=== PATIENT | male | born 1950 | race Caucasian/White ===

== ENCOUNTER 2019-02-07 08:25 | Emergency (ER) | payer OTHER ==
[2019-02-07] MEDS ORDERED: LIDOCAINE 1% MPF 5 ML VIAL ONE (09:11)
[2019-02-07] MEDS ORDERED: NA CHLORIDE 0.9% 1,000 ML ONE (09:35)
--- NOTE | 2019-02-07 09:54 | RAD REPORT ---
EXAM DESCRIPTION: CT - CTHCSPWOC - 02/07/2019 9:17 am CLINICAL HISTORY: Fall, head and neck injury COMPARISON: None. TECHNIQUE: Axial 5 mm thick images of the head were obtained. Axial 2 mm thick images of the cervic al spine were obtained with sagittal and coronal reconstruction images generated and reviewed. All CT scans are performed using dose optimization technique as appropriate and may include automated exposure control or mA/KV adjustment according to patient size. FINDINGS: No intracranial hemorrhage, mass, edema or acute intracranial finding. Moderate severity a trophy and chronic ischemic change. Ventricular size is in proportion to the amount of volume loss. C hronic ischemic changes are present. No extra-axial fluid collections. Mastoid air cells and paranasa l sinuses are clear. No globe or orbit abnormality seen. Right frontal scalp laceration is present. N o foreign body. Cervical bodies are normal in height. There is very slight retrolisthesis of C4 on C5 and C5 on C6. M oderate C4-5 and advanced C5-6 and C6-7 disc space narrowing. Posterior endplate spurring changes are present. No fracture or acute bony abnormality. Central canal detail is inherently limited. Bilatera l bony foraminal encroachment is present at C4-5, C5-6 and to a lesser degree C6-7. Facet joint degen erative change present. No paraspinal mass or hematoma. IMPRESSION: Right frontal scalp laceration with no hemorrhage, edema or acute intracranial finding. Patient has moderate severity atrophy and chronic ischemic change. Cervical spine degenerative changes are present without acute finding.
[2019-02-07] MEDS ORDERED: LIDOCAINE 1% W/EPI 1:100,000 MDV 20 ML VIAL ONE (10:15)
--- NOTE | 2019-02-07 10:18 | RAD REPORT ---
EXAM DESCRIPTION: RAD - Chest Single View - 02/07/2019 9:36 am CLINICAL HISTORY: Dizziness, shortness of breath COMPARISON: None. TECHNIQUE: AP portable chest image was obtained 0930 hours . FINDINGS: No peripheral mass or consolidation. Interstitial markings are prominent believed be basel ine. No significant failure or volume overload. Heart and vasculature are normal. No measurable pleur al effusion and no pneumothorax. No acute bony abnormality seen. No acute aortic findings suspected. IMPRESSION: No acute cardiopulmonary process.
[2019-02-07 10:43] LABS: Absolute Lymphocytes (CBC) 2.3 K/uL (0.7-4.9); Basophils % 0.9 % (0-1.3); Hematocrit 33.2 % (39.6-49.0); Lymphocytes % 29.6 % (15.3-44.8); RBC Red Blood Cell Count 3.78 M/uL (4.33-5.43)
[2019-02-07 11:16] LABS: Protime INR 0.96
[2019-02-07 11:40] LABS: ALT/SGPT 28 U/L (12-78); AST/SGOT 27 U/L (15-37); Albumin 3.4 g/dL (3.4-5.0); Alkaline Phosphatase 110 U/L (45-117); BUN Blood Urea Nitrogen 14 mg/dL (7-18); Bicarbonate 28 mmol/L (21-32); Bilirubin Direct 0.1 mg/dL (0-0.2); Bilirubin Total 0.4 mg/dL (0.2-1.0); Glucose Level 124 mg/dL (74-106); Magnesium 2.3 mg/dL (1.8-2.4); NT PRO-BNP 342 pg/mL (<125); Potassium 5.2 mmol/L (3.5-5.1); Protein, Total 7.2 g/dL (6.4-8.2); Sodium Level 131 mmol/L (136-145); Troponin (Emerg Dept Use Only) < 0.02 ng/mL (0.0-0.045)
--- NOTE | 2019-02-07 12:20 | ER ---
Nurse's Notes [facility] Name: Ken Sutherland Jr Age: 68 yrs Sex: Male : 1950 Arrival Date: 02/07/2019 Time: 08:28 Bed 26 Private MD: Diagnosis: Laceration without foreign body of scalp;Other slipping, tripping and stumbling and falls;Dizziness and giddiness Presentation: 02/07 08:44 Presenting complaint: Became dizzy when stood from bed, fell and hit head on night ss stand. Laceration to right side of forehead noted. Transition of care: patient was not received from another setting of care. Complicating Factors: There are no complicating factors for this patient. Onset of symptoms was February 07, 2019. Risk Assessment: Do you want to hurt yourself or someone else? Patient reports no desire to harm self or others. Care prior to arrival: None. 08:44 Method Of Arrival: Ambulatory ss 08:44 Acuity: JENAE 3 ss 10:07 Initial Sepsis Screen: Does the patient meet any 2 criteria? No. Patient's initial em sepsis screen is negative. Does the patient have a suspected source of infection? No. Patient's initial sepsis screen is negative. Historical: - Allergies: 08:45 Sulfa (Sulfonamide Antibiotics); ss - Immunization history:: Adult Immunizations up to date. - Social history:: Smoking status: Patient/guardian denies using tobacco. - Ebola Screening: : No symptoms or risks identified at this time. Screenin:45 Abuse screen: Denies threats or abuse. Denies injuries from another. Nutritional ss screening: No deficits noted. Tuberculosis screening: No symptoms or risk factors identified. 09:00 Fall Risk Fall in past 12 months (25 points). Gait- Impaired (20 pts.). Mental Status- em Overestimates/Forgets Limitations (15 pts.). Total Jain Fall Scale indicates High Risk Score (45 or more points). Side Rails Up X 2 Placed Close to Nursing Station Frequent Obs/Assessments Occuring Family Present and informed to notify staff if the need to leave the bedside. Assessment: 09:00 General: Appears in no apparent distress. comfortable, Behavior is calm, cooperative, em Reports reports drinking alcohol last night. Pain: Complains of pain in top of head Pain currently is 5 out of 10 on a pain scale. Neuro: Level of Consciousness is awake, alert, obeys commands, Oriented to person, place, time, situation, Appropriate for age Reports dizziness. Cardiovascular: Capillary refill < 3 seconds Patient's skin is warm and dry. Respiratory: Airway is patent Respiratory effort is even, unlabored, Respiratory pattern is regular, symmetrical. Derm: Skin is intact, is healthy with good turgor, Skin is pink, warm \T\ dry. Musculoskeletal: Capillary refill < 3 seconds, Range of motion: intact in all extremities. Injury Description: Laceration sustained to top of head is clean, was sustained 30-60 minutes ago. is bleeding a small amount. 11:13 Reassessment: Patient appears in no apparent distress at this time. Patient and/or em family updated on plan of care and expected duration. Pain level reassessed. Patient is alert, oriented x 3, equal unlabored respirations, skin warm/dry/pink. Patient states symptoms have improved. 12:39 Reassessment: Patient appears in no apparent distress at this time. Patient and/or em family updated on plan of care and expected duration. Pain level reassessed. Patient is alert, oriented x 3, equal unlabored respirations, skin warm/dry/pink. Patient states feeling better. Patient states symptoms have improved. Vital Signs: 08:45 BP 157 / 103; Pulse 101; Resp 16; Temp 97.5; Pulse Ox 100% on R/A; Weight 89.81 kg; ss Height 5 ft. 8 in. (172.72 cm); Pain 5/10; 09:03 BP 106 / 62 Supine; Pulse 94; em 09:03 BP 100 / 73 Sitting; Pulse 98; em 09:03 BP 89 / 66 Standing; Pulse 102; em 10:07 BP 154 / 66; Pulse 97; Resp 18; Pulse Ox 97% on R/A; em 11:14 BP 144 / 69; Pulse 91; Resp 18; Pulse Ox 95% on R/A; em 12:39 BP 138 / 71; Pulse 84; Resp 18; Pulse Ox 99% on R/A; em 08:45 Body Mass Index 30.11 (89.81 kg, 172.72 cm) ED Course: 08:28 Patient arrived in ED. as 08:40 Lobo Celaya LVN is Primary Nurse. em 08:45 Triage completed. 08:45 Douglas Sanabria PA is PHCP. cp 08:45 Braulio Berry MD is Attending Physician. cp 08:45 Arm band placed on. ss 09:00 Patient has correct armband on for positive identification. Bed in low position. Call em light in reach. Side rails up X2. Adult w/ patient. Pulse ox on. NIBP on. 09:17 CT Head C Spine In Process Unspecified. EDMS 09:17 CT completed. Patient tolerated procedure well. Patient moved back from CT. bq 09:36 XRAY Chest (1 view) In Process Unspecified. EDMS 10:00 EKG done, by ED staff, reviewed by Braulio Berry MD. ms 10:05 Missed attempt(s): 24 gauge in left wrist. Bleeding controlled, band aid applied, em catheter tip intact. 12:35 IV discontinued, intact, bleeding controlled, No redness/swelling at site. Pressure jp3 dressing applied. 12:38 No provider procedures requiring assistance completed. em Administered Medications: 10:19 Drug: NS 0.9% 1000 ml Route: IV; Rate: 1000 ml/hr; Site: right antecubital; em 10:43 Drug: Lidocaine-Epinephrine -1%: (1:100,000) 10 ml {Note: administered by LAUREN Cole.} em Volume: 20 ml; Route: Infiltration; Outcome: 12:19 Discharge ordered by MD. cp 12:38 Discharged to home ambulatory, with family. em 12:38 Condition: good 12:38 Discharge instructions given to patient, family, Instructed on discharge instructions, follow up and referral plans. Demonstrated understanding of instructions, follow-up care. 12:39 Patient left the ED. em Signatures: Dispatcher [employer] EDMS Jenni Eckert, Lobo, REGISTERED SALES ASSISTANT REGISTERED SALES ASSISTANT em Precious Meraz Maria ms Smirch, Shelby, RN RN Douglas Hercules PA PA cp Pisarski, Jacob jp3
--- NOTE | 2019-02-07 12:21 | EDPHYS ---
Physician Documentation [facility] Name: Ken Sutherland Jr Age: 68 yrs Sex: Male : 1950 Arrival Date: 02/07/2019 Time: 08:28 Bed 26 Private MD: ED Physician Braulio Berry HPI: 02/07 08:55 This 68 yrs old Male presents to ER via Ambulatory with complaints of cp Laceration To Head. 08:55 The patient has a laceration occurred at home. The laceration(s) is(are) located on the cp top of head. 08:55 Details of fall: The patient fell from an upright position, while standing, and struck wooden nightstand. Onset: The symptoms/episode began/occurred this morning. Associated injuries: The patient sustained injury to the head, laceration, of the top of head. Associated signs and symptoms: Pertinent positives: dizziness, Pertinent negatives: heavy bleeding, loss of consciousness. Historical: - Allergies: 08:45 Sulfa (Sulfonamide Antibiotics); ss - Immunization history:: Adult Immunizations up to date. - Social history:: Smoking status: Patient/guardian denies using tobacco. - Ebola Screening: : No symptoms or risks identified at this time. ROS: 09:00 Constitutional: Negative for body aches, chills, fever, poor PO intake. cp 09:00 Eyes: Negative for injury, pain, redness, and discharge. cp 09:00 ENT: Negative for drainage from ear(s), ear pain, sore throat, difficulty swallowing, difficulty handling secretions. 09:00 Cardiovascular: Negative for chest pain, edema, palpitations. 09:00 Respiratory: Negative for cough, shortness of breath, wheezing. 09:00 Abdomen/GI: Negative for abdominal pain, nausea, vomiting, and diarrhea, constipation, black/tarry stool, rectal bleeding. 09:00 Back: Negative for pain at rest, pain with movement. 09:00 MS/extremity: Negative for injury or acute deformity, decreased range of motion, paresthesias. 09:00 Skin: Positive for laceration(s), of the top of head. 09:00 Neuro: Positive for dizziness, Negative for altered mental status, loss of consciousness, seizure activity, syncope, weakness. 09:00 All other systems are negative. Exam: 09:05 Constitutional: The patient appears in no acute distress, alert, awake, cp non-diaphoretic, non-toxic, well developed, well nourished. 09:05 Head/face: Noted is a laceration(s), that is deep, that is linear, of the top of head, cp Sinus tenderness, is not appreciated. 09:05 Eyes: Periorbital structures: appear normal, Pupils: equal, round, and reactive to light and accomodation, Extraocular movements: intact throughout, Conjunctiva: normal, no exudate, no injection, Lids and lashes: appear normal, bilaterally. 09:05 ENT: External ear(s): are unremarkable, Ear canal(s): are normal, clear, TM's: dullness, bilaterally, Nose: is normal, Mouth: Lips: moist, Oral mucosa: pink and intact, moist, Posterior pharynx: is normal, airway is patent, no erythema, no exudate. 09:05 Neck: C-spine: C-collar placed in ED, vertebral tenderness, that is mild, appreciated at C6 and C7, crepitus, is not appreciated. 09:05 Chest/axilla: Inspection: normal, Palpation: is normal, no crepitus, no tenderness. 09:05 Cardiovascular: Rate: normal, Rhythm: regular, Edema: is not appreciated, JVD: is not appreciated. 09:05 Respiratory: the patient does not display signs of respiratory distress, Respirations: normal, no use of accessory muscles, no retractions, no splinting, no tachypnea, labored breathing, is not present, Breath sounds: are clear throughout, no decreased breath sounds, no stridor, no wheezing. 09:05 Abdomen/GI: Inspection: abdomen appears normal, Palpation: abdomen is soft and non-tender, in all quadrants, voluntary guarding, is not appreciated, involuntary guarding, is not appreciated. 09:05 Back: pain, is absent, ROM is normal, vertebral tenderness, is not appreciated. 09:05 Neuro: Orientation: to person, place \T\ time. Mentation: is normal, Cerebellar function: is grossly normal, Motor: moves all fours, strength is normal, Sensation: no obvious gross deficits. 12:10 Abdomen/GI: Rectal exam: Stool: brown, guaiac negative. cp Vital Signs: 08:45 BP 157 / 103; Pulse 101; Resp 16; Temp 97.5; Pulse Ox 100% on R/A; Weight 89.81 kg; ss Height 5 ft. 8 in. (172.72 cm); Pain 5/10; 09:03 BP 106 / 62 Supine; Pulse 94; em 09:03 BP 100 / 73 Sitting; Pulse 98; em 09:03 BP 89 / 66 Standing; Pulse 102; em 10:07 BP 154 / 66; Pulse 97; Resp 18; Pulse Ox 97% on R/A; em 11:14 BP 144 / 69; Pulse 91; Resp 18; Pulse Ox 95% on R/A; em 12:39 BP 138 / 71; Pulse 84; Resp 18; Pulse Ox 99% on R/A; em 08:45 Body Mass Index 30.11 (89.81 kg, 172.72 cm) ss Laceration: 11:08 Wound Repair of 5.5cm ( 2.2in ) subcutaneous laceration to top of head. Linear shaped.. cp Distal neuro/vascular/tendon intact. Anesthesia: Wound infiltrated with 6 mls of 1% lidocaine w/ Epi. Wound prep: Moderate cleansing by nurse, Wound irrigation by nurse. Skin closed with 2 5-0 Prolene using running sutures and sterile technique. Dressed with Bacitracin, 4x4's. Patient tolerated well. MDM: 08:49 Patient medically screened. cp 12:19 Data reviewed: vital signs, nurses notes, lab test result(s), radiologic studies, CT cp scan. 12:19 Test interpretation: by ED physician or midlevel provider: ECG, plain radiologic cp studies. Counseling: I had a detailed discussion with the patient and/or guardian regarding: the historical points, exam findings, and any diagnostic results supporting the discharge/admit diagnosis, lab results, radiology results, to return to the emergency department if symptoms worsen or persist or if there are any questions or concerns that arise at home. Response to treatment: the patient's symptoms have markedly improved after treatment. 02/07 09:20 Order name: Basic Metabolic Panel; Complete Time: 11:47 cp 02/07 11:47 Interpretation: Normal except: NA 131; K 5.2; CL 96; GLUC 124; GFR 57. cp 02/07 09:20 Order name: CBC with Diff cp 02/07 11:29 Interpretation: Normal except: RBC 3.78; HGB 11.5; HCT 33.2; RDW 18.0; MPV 7.0. cp 02/07 09:20 Order name: LFT's; Complete Time: 11:47 cp 02/07 11:48 Interpretation: Normal except: GLOB 3.8; A/G 0.9. cp 02/07 09:20 Order name: Magnesium; Complete Time: 11:47 cp 02/07 09:20 Order name: NT PRO-BNP; Complete Time: 11:47 cp 02/07 09:20 Order name: PT-INR; Complete Time: 11:29 cp 02/07 08:50 Order name: CT Head C Spine; Complete Time: 10:10 cp 02/07 10:11 Interpretation: Reviewed report. 02/07 08:50 Order name: Dressing - Wound; Complete Time: 08:54 cp 02/07 09:20 Order name: Troponin (emerg Dept Use Only); Complete Time: 11:47 02/07 09:20 Order name: XRAY Chest (1 view); Complete Time: 11:29 02/07 09:20 Order name: EKG; Complete Time: 09:21 02/07 12:17 Order name: Urine Dipstick--Ancillary (enter results) em 02/07 08:50 Order name: Gloves, Sterile; Complete Time: 08:54 02/07 08:50 Order name: Setup Suture Tray; Complete Time: 08:54 02/07 08:54 Order name: Orthostatics; Complete Time: 09:03 02/07 09:20 Order name: Cardiac monitoring; Complete Time: 09:59 cp 02/07 09:20 Order name: EKG - Nurse/Tech; Complete Time: 09:59 cp 02/07 09:20 Order name: IV Saline Lock; Complete Time: 09:59 cp 02/07 09:20 Order name: Labs collected and sent; Complete Time: 09:59 cp 02/07 09:20 Order name: O2 Per Protocol; Complete Time: 09:59 cp 02/07 09:20 Order name: O2 Sat Monitoring; Complete Time: 09:59 02/07 10:15 Order name: Wound Care: please clean and irrigate wound; Complete Time: 10:37 02/07 10:42 Order name: Labs - recollect needed: chemistry; Complete Time: 11:10 eb 02/07 12:04 Order name: Urine Dipstick-Ancillary (obtain specimen); Complete Time: 12:35 cp Administered Medications: 10:19 Drug: NS 0.9% 1000 ml Route: IV; Rate: 1000 ml/hr; Site: right antecubital; em 10:43 Drug: Lidocaine-Epinephrine -1%: (1:100,000) 10 ml {Note: administered by LAUREN Cole.} em Volume: 20 ml; Route: Infiltration; Disposition: 15:37 Co-signature as Attending Physician, Braulio Berry MD. Disposition: 02/07/19 12:19 Discharged to Home. Impression: Laceration without foreign body of scalp, Other slipping, tripping and stumbling and falls, Dizziness and giddiness. - Condition is Stable. - Discharge Instructions: Dizziness, Head Injury, Adult, Fall Prevention in the Home, Laceration Care, Adult. - Medication Reconciliation Form, Thank You Letter, Antibiotic Education, Prescription Opioid Use form. - Follow up: Private Physician; When: 7 - 10 days; Reason: Staple/Suture removal. - Problem is new. - Symptoms have improved. Signatures: Dispatcher [employer] EDMS Lobo Celaya, ORDNANCE TECHNICIAN ORDNANCE TECHNICIAN em Gloria Brenner RN RN Douglas Sanabria PA PA cp Starr, Gregory, MD MD Flori Diaz Corrections: (The following items were deleted from the chart) 12:39 12:19 02/07/2019 12:19 Discharged to Home. Impression: Laceration without foreign body em of scalp; Other slipping, tripping and stumbling and falls; Dizziness and giddiness. Condition is Stable. Forms are Medication Reconciliation Form, Thank You Letter, Antibiotic Education, Prescription Opioid Use. Follow up: Private Physician; When: 7 - 10 days; Reason: Staple/Suture removal. Problem is new. Symptoms have improved. cp
[2019-02-07 12:23] LABS: Urine Blood NEGATIVE (NEG); Urine Glucose NEGATIVE (NEG); Urine Protein NEGATIVE (NEG)
[2019-02-07 12:53] VITALS: TEMP 97.5
[2019-02-07 12:58] VITALS: BP 138/71; O2SAT 99
[2019-02-07 13:26] LABS: Blood Morphology Comment NOT SEEN (NOT SEEN); Platelet Estimate ADEQ; Urine White Blood Cell Casts OK
--- NOTE | 2019-02-08 06:11 | EKG ---
Test Date: 2019-02-07 Test Time: 09:37:46 Iron Bender: MEASUREMENT RESULTS: Intervals: Rate: 90 MD: 156 QRSD: 96 QT: 378 QTc: 462 Tracy: P: 34 MD: 156 QRS: -5 T: 29 INTERPRETIVE STATEMENTS: Sinus rhythm with premature atrial complexes Otherwise normal ECG No previous ECG available for comparison Electronically Signed On 02-08-19 06:09:54 CDT by Morgan Sanders
== END 2019-02-07 12:39 | disposition home or self-care (01) ==
LOC: ER 08:25
PROC: 0JQ00ZZ Repair Scalp Subcutaneous Tissue and Fascia, Open Approach (ICD-10-PCS; principal; 2019-02-07)
DX: S01.01XA Laceration without foreign body of scalp, initial encounter (principal); W01.198A Fall on same level from slipping, tripping and stumbling with subsequent striking against other object, initial encounter; Y93.01 Activity, walking, marching and hiking; Y92.009 Unspecified place in unspecified non-institutional (private) residence as the place of occurrence of the external cause; Z88.2 Allergy status to sulfonamides
CPT/HCPCS: 12002; 93005; 85025; 80048; 36415; 83735; 85610; 80076; 81003; 84484; 83880; 70450; 72125; 71045; 99284; J7030

== ENCOUNTER 2019-07-01 11:07 | Emergency (ER) | payer OTHER ==
--- OUTSIDE RECORDS SUMMARY | 2019-07-01 11:12 | XMS REPORT ---
:1950 [facility] Address [address] [place] [address] [address]. [address] [place] [address] Care Team Providers Name Role Phone Unavailable Unavailable Unavailable Payers Payer Name Policy Type Policy Number Effective Date Expiration Date Problems This patient has no known problems. Allergies, Adverse Reactions, Alerts Allergy Allergy Status Severity Reaction(s) Onset Inactive Treating Comments Name Type Date Date Clinician Sulfa DA Active AL 2019-04 (Sulfonami -02 de 00:00:0 Antibiotic 0 s) SULFA DA Active AL 2019-04 DRUGS - 00:00:0 0 SULFA DA Active U 2000-07 DRUGS 00:00:0 0 Medications This patient has no known medications. Encounters Start End Encounter Admission Attending Care Care Encounter Date/Time Date/Time Type Type Clinicians Facility Department ID 2018-12-24 Inpatient U [facility] MED [id number] 15:06:00 2018-12-24 2018-12-24 Emergency E [facility] [id number] 10:03:00 10:03:00 2018-11-26 2018-11-26 Outpatient [facility] MED 7502 08:20:00 08:20:00 Results Test Description Test Time Test Comments Text Results Atomic Results Result Comments - MRI 2019-04-25 FAX: Ana Lyle [phone] Camps: PM St: DIS FAX: BRAIN W/O 17:07:00 Bandar Dong MD [phone] FAX: Sudheer Tinajero PA GHAZAL [phone] ------ Name: TOBY STALEY : 1950 Age/S: 69/M [address] Unit # : [id number] Loc: [place] [address] Phys : Ana Sidhu MD Acct : [id number] Dis Date: 20190425 Status: DIS IN PHONE #: [phone] Exam Date: 04/25/2019 1135 FAX #: Reason: seziures EXAMS: CPT: [id number] MRI BRAIN W/O CONTRAST 67530 EXAM: MRI BRAIN WITHOUT CONTRAST INDICATION: Seizures COMPARISON: CT head dated April 22, 2019 TECHNIQUE: Multiplanar, multisequence MRI of the brain was obtained without administration of intravenous contrast. IV contrast: None FINDINGS: No restricted diffusion is identified to suggest acute ischemia. There are areas of hyperintense T2 changes within the periventricular white matter consistent with mild chronic microvascular ischemic changes. There is prominence of the ventricles and sulci throughout both cerebral hemispheres. This may be secondary to diffuse cerebral volume loss however normal pressure hydrocephalus could have a similar appearance. No midline shift or mass effect. The basal cisterns are patent. The posterior fossa and 4th ventricle are normal. No intracranial hemorrhage. Intracranial flow voids are normal. The paranasal sinuses and mastoid air cells are clear. No calvarial lesions are identified. The orbits and globes are unremarkable. IMPRESSION: No acute intracranial abnormality. No acute infarct. Mild chronic microvascular ischemic changes. Ventriculomegaly which may be secondary to cerebral volume loss however normal pressure hydrocephalus could have a similar appearance. Correlate with the appropriate clinical history. LOCATION: A 1 at 1707 Reported and signed by: Donna Yanez M.D. PAGE 1 Signed Report (CONTINUED) FAX: Ana Lyle [phone] Camps: PM St: DIS FAX: Bandar Dong MD [phone] FAX: Sudheer Tinajero [phone] ------ Name: TOBY STALEY : 1950 Age/S: 69/M [address] Unit # : [id number] Loc: [place] [address] Phys : Ana Sidhu MD Acct : [id number] Dis Date: 20190425 Status: DIS IN PHONE #: [phone] Exam Date: 04/25/2019 1133 FAX #: Reason: seziures EXAMS: CPT: [id number] MRI BRAIN W/O CONTRAST 21286 <Continued> CC: Ana Sidhu MD; Bandar Dong MD; Sudheer AGUILAR Technologist: RT Ishan(R)(MR) Transcribed Date/Time/By: 04/25/2019 (2041) :[email or web address] Orig Print D/T: S: 04/25/2019 (4830) PAGE 2 Signed Report BASIC METABOLIC PANEL 2019-04-24 04:43:00 Test Item Value Reference Range Comments SODIUM (test code=NA) 139 mmol/L 134-147 POTASSIUM (test code=K) 3.5 mmol/L 3.4-5.0 CHLORIDE (test code=CL) 107 mmol/L 100-108 CARBON DIOXIDE (test code=CO2) 25 mmol/L 21-32 ANION GAP (test code=GAP) 7.0 GAP calc 4.0-15.0 GLUCOSE (test code=GLU) 136 MG/DL 70-110 BLOOD UREA NITROGEN (test code=BUN) 6 MG/DL 7-18 GLOMERULAR FILTRATION RATE (test code=GFR) >=60 max estimate estGFR >60 CREATININE (test code=CREAT) 0.5 MG/DL 0.8-1.3 CALCIUM (test code=CA) 8.7 MG/DL 8.5-10.1 CBC W/AUTO [id number] 04:29:00 Test Item Value Reference Range Comments WHITE BLOOD CELL (test code=WBC) 6.7 K/mm3 3.5-11.0 RED BLOOD CELL (test code=RBC) 3.67 M/mm3 4.70-6.10 HEMOGLOBIN (test code=HGB) 10.7 G/DL 12.3-15.9 HEMATOCRIT (test code=HCT) 32.3 % 35.8-46.7 MEAN CELL VOLUME (test code=MCV) 88.0 Fl 86.3-98.9 MEAN CELL HGB (test code=MCH) 29.2 pg 28.9-34.4 MEAN CELL HGB CONCETRATION (test code=MCHC) 33.1 G/DL 32.1-34.5 RED CELL DISTRIBUTION WIDTH (test code=RDW) 14.5 SD 11.5-14.5 PLATELET COUNT (test code=PLT) 374.0 K/mm3 150-450 MEAN PLATELET VOLUME (test code=MPV) 8.50 fL 7.0-9.6 NEUTROPHIL % (test code=NT%) 60.4 % 40-76 LYMPHOCYTE % (test code=LY%) 27.5 % 20.5-51.1 MONOCYTE % (test code=MO%) 10.7 % 1.7-9.3 EOSINOPHIL % (test code=EO%) 0.9 % 0.0-6.0 BASOPHIL % (test code=BA%) 0.5 % 0.0-2.0 NEUTROPHIL # (test code=NT#) 4.03 K/mm3 1.8-7.6 LYMPHOCYTE # (test code=LY#) 1.8 K/mm3 0.6-3.0 MONOCYTE # (test code=MO#) 0.7 K/mm3 0.2-1.5 EOSINOPHIL # (test code=EO#) 0.1 K/mm3 0.0-0.4 BASOPHIL # (test code=BA#) 0.0 K/mm3 0.0-0.2 MANUAL DIFF REQUIRED (test code=MDIFF) NO DIFF/SCN CRITERIA CBC W/AUTO [id number] 22:47:00 Test Item Value Reference Range Comments WHITE BLOOD CELL (test code=WBC) 6.4 K/mm3 3.5-11.0 RED BLOOD CELL (test code=RBC) 3.55 M/mm3 4.70-6.10 HEMOGLOBIN (test code=HGB) 10.5 G/DL 12.3-15.9 HEMATOCRIT (test code=HCT) 31.7 % 35.8-46.7 MEAN CELL VOLUME (test code=MCV) 89.3 Fl 86.3-98.9 MEAN CELL HGB (test code=MCH) 29.6 pg 28.9-34.4 MEAN CELL HGB CONCETRATION (test code=MCHC) 33.1 G/DL 32.1-34.5 RED CELL DISTRIBUTION WIDTH (test code=RDW) 14.9 SD 11.5-14.5 PLATELET COUNT (test code=PLT) 362.0 K/mm3 150-450 MEAN PLATELET VOLUME (test code=MPV) 8.30 fL 7.0-9.6 NEUTROPHIL % (test code=NT%) 53.7 % 40-76 LYMPHOCYTE % (test code=LY%) 31.0 % 20.5-51.1 MONOCYTE % (test code=MO%) 13.5 % 1.7-9.3 EOSINOPHIL % (test code=EO%) 1.3 % 0.0-6.0 BASOPHIL % (test code=BA%) 0.5 % 0.0-2.0 NEUTROPHIL # (test code=NT#) 3.44 K/mm3 1.8-7.6 LYMPHOCYTE # (test code=LY#) 2.0 K/mm3 0.6-3.0 MONOCYTE # (test code=MO#) 0.9 K/mm3 0.2-1.5 EOSINOPHIL # (test code=EO#) 0.1 K/mm3 0.0-0.4 BASOPHIL # (test code=BA#) 0.0 K/mm3 0.0-0.2 MANUAL DIFF REQUIRED (test code=MDIFF) NO DIFF/SCN CRITERIA - RETRO [id number] 16:17:00 Name: TOBY STALEY [facility] ED : 1950 Age/S: 69 / M [address] Unit #: [id number] Loc: [place] [address] Phys: Bandar Dong MD Acct: [id number] Dis Date: Status: ADM IN PHONE #: [phone] Exam Date: 04/23/2019 1430 FAX #: Reason: PELVIC PAIN EXAMS: CPT: [id number] US RETRO LTD 13440 EXAMINATION: - US RETRO LTD. LOCATION: S17. HISTORY: Pelvic pain, trouble draining bladder. COMPARISON: None. FINDINGS: Sonographic evaluationof the kidneys and bladder was performed utilizing javier scale, pulse Doppler and color flow imaging. The right kidney measures 11.6 cm and the left kidney measures 11.7 cm. The parenchymal echogenicity is within normal limits on both sides. There is no hydronephrosis. No calculus is identified. Urinary bladder is decompressed by the presence of Lion catheter, thus could not be evaluated. IMPRESSION: No hydronephrosis. at 1617 Reported and signed by: Vangie Gonzalez M.D. CC: Bandar Dong MD Technologist: Sully Macedo , RT(R),RDMS(AB) Trnscb Date/Time: 04/23/2019 (1567) [email or web address] PAGE 1 Signed Report Name: TOBY STALEY [place] : 1950 Age/S: 69 / M [address] Unit # : [id number] Loc: [place] [address] Phys: Bandar Dong MD Acct: [id number] Dis Date: Status: ADM IN PHONE #: [phone] Exam Date: 04/23/2019 1430 FAX #: Reason: PELVIC PAIN EXAMS: CPT: [id number] US RETRO LTD [address]8213 <Continued> Orig Print D/T: S: 04/23/2019 (1621) Probe: PAGE 2 Signed ReportCOMPREHENSIVE METABOLIC [id number] 04:20:00 Test Item Value Reference Range Comments SODIUM (test code=NA) 135 mmol/L 134-147 POTASSIUM (test code=K) 3.4 mmol/L 3.4-5.0 CHLORIDE (test code=CL) 101 mmol/L 100-108 CARBON DIOXIDE (test code=CO2) 28 mmol/L 21-32 ANION GAP (test code=GAP) 6.0 GAP calc 4.0-15.0 GLUCOSE (test code=GLU) 97 MG/DL 70-110 BLOOD UREA NITROGEN (test code=BUN) 5 MG/DL 7-18 GLOMERULAR FILTRATION RATE (test >=60 max estimate estGFR >60 code=GFR) CREATININE (test code=CREAT) 0.7 MG/DL 0.8-1.3 TOTAL PROTEIN (test code=PROT) 6.7 G/DL 6.4-8.2 ALBUMIN (test code=ALB) 2.9 G/DL 3.4-5.0 GLOBULIN (test code=GLOB) 3.8 GM/dL ALBUMIN/GLOBULIN RATIO (test 0.8 RATIO 1.2-2.2 code=A/G) CALCIUM (test code=CA) 8.8 MG/DL 8.5-10.1 BILIRUBIN TOTAL (test code=BILT) 0.20 MG/DL 0.2-1.2 SGOT/AST (test code=AST) 27 Unit/L 15-37 SGPT/ALT (test code=ALT) 31 Unit/L 12-78 ALKALINE PHOSPHATASE TOTAL (test 80 Unit/L 50-136 code=ALKP) [id number] 04:20:00 Test Item Value Reference Range Comments PHOSPHOROUS (test code=PHOS) 3.1 MG/DL 2.5-4.9 [id number] 04:20:00 Test Item Value Reference Range Comments MAGNESIUM (test code=MAG) 2.3 MG/DL 1.8-2.4 CBC W/AUTO [id number] 04:09:00 Test Item Value Reference Range Comments WHITE BLOOD CELL (test code=WBC) 6.4 K/mm3 3.5-11.0 RED BLOOD CELL (test code=RBC) 3.55 M/mm3 4.70-6.10 HEMOGLOBIN (test code=HGB) 10.5 G/DL 12.3-15.9 HEMATOCRIT (test code=HCT) 31.7 % 35.8-46.7 MEAN CELL VOLUME (test code=MCV) 89.3 Fl 86.3-98.9 MEAN CELL HGB (test code=MCH) 29.6 pg 28.9-34.4 MEAN CELL HGB CONCETRATION (test code=MCHC) 33.1 G/DL 32.1-34.5 RED CELL DISTRIBUTION WIDTH (test code=RDW) 14.9 SD 11.5-14.5 PLATELET COUNT (test code=PLT) 362.0 K/mm3 150-450 MEAN PLATELET VOLUME (test code=MPV) 8.30 fL 7.0-9.6 NEUTROPHIL % (test code=NT%) 53.7 % 40-76 LYMPHOCYTE % (test code=LY%) 31.0 % 20.5-51.1 MONOCYTE % (test code=MO%) 13.5 % 1.7-9.3 EOSINOPHIL % (test code=EO%) 1.3 % 0.0-6.0 BASOPHIL % (test code=BA%) 0.5 % 0.0-2.0 NEUTROPHIL # (test code=NT#) 3.44 K/mm3 1.8-7.6 LYMPHOCYTE # (test code=LY#) 2.0 K/mm3 0.6-3.0 MONOCYTE # (test code=MO#) 0.9 K/mm3 0.2-1.5 EOSINOPHIL # (test code=EO#) 0.1 K/mm3 0.0-0.4 BASOPHIL # (test code=BA#) 0.0 K/mm3 0.0-0.2 MANUAL DIFF REQUIRED (test code=MDIFF) DIFF/SCN CRITERIA CBC W/AUTO [id number] 16:54:00 Test Item Value Reference Range Comments WHITE BLOOD CELL (test code=WBC) 5.6 K/mm3 3.5-11.0 RED BLOOD CELL (test code=RBC) 3.67 M/mm3 4.70-6.10 HEMOGLOBIN (test code=HGB) 10.9 G/DL 12.3-15.9 HEMATOCRIT (test code=HCT) 32.6 % 35.8-46.7 MEAN CELL VOLUME (test code=MCV) 88.8 Fl 86.3-98.9 MEAN CELL HGB (test code=MCH) 29.7 pg 28.9-34.4 MEAN CELL HGB CONCETRATION (test code=MCHC) 33.4 G/DL 32.1-34.5 RED CELL DISTRIBUTION WIDTH (test code=RDW) 14.9 SD 11.5-14.5 PLATELET COUNT (test code=PLT) 352.0 K/mm3 150-450 MEAN PLATELET VOLUME (test code=MPV) 8.00 fL 7.0-9.6 NEUTROPHIL % (test code=NT%) 70.7 % 40-76 LYMPHOCYTE % (test code=LY%) 22.3 % 20.5-51.1 MONOCYTE % (test code=MO%) 6.8 % 1.7-9.3 EOSINOPHIL % (test code=EO%) 0.0 % 0.0-6.0 BASOPHIL % (test code=BA%) 0.2 % 0.0-2.0 NEUTROPHIL # (test code=NT#) 3.94 K/mm3 1.8-7.6 LYMPHOCYTE # (test code=LY#) 1.2 K/mm3 0.6-3.0 MONOCYTE # (test code=MO#) 0.4 K/mm3 0.2-1.5 EOSINOPHIL # (test code=EO#) 0.0 K/mm3 0.0-0.4 BASOPHIL # (test code=BA#) 0.0 K/mm3 0.0-0.2 MANUAL DIFF REQUIRED (test code=MDIFF) NO DIFF/SCN CRITERIA BASIC METABOLIC [id number] 16:50:00 Test Item Value Reference Range Comments SODIUM (test code=NA) 137 mmol/L 134-147 POTASSIUM (test code=K) 4.0 mmol/L 3.4-5.0 CHLORIDE (test code=CL) 102 mmol/L 100-108 CARBON DIOXIDE (test code=CO2) 29 mmol/L 21-32 ANION GAP (test code=GAP) 6.0 GAP calc 4.0-15.0 GLUCOSE (test code=GLU) 113 MG/DL 70-110 BLOOD UREA NITROGEN (test code=BUN) 6 MG/DL 7-18 GLOMERULAR FILTRATION RATE (test >=60 max estimate estGFR >60 code=GFR) CREATININE (test code=CREAT) 0.8 MG/DL 0.8-1.3 CALCIUM (test code=CA) 9.0 MG/DL 8.5-10.1 - CT HEAD/BRAIN W/O [id number] 16:42:00 Name: TOBY STALEY [facility] ED : 1950 Age/S: 69 / M [address] Unit #: [id number] Loc: [place] [address] Phys: Dharmesh Irving MD Acct: [id number] Dis Date: Status : ADM IN PHONE #: [phone] Exam Date: 04/22/2019 1636 FAX #: Reason: seizure EXAMS: CPT: [id number] CT HEAD/BRAIN W/O CONT [id number] EXAM: CT BRAIN WITHOUT CONTRAST INDICATION: SEIZURE COMPARISON: None available TECHNIQUE: Routine axial CT images of the brain were obtained without venous contrast. IV contrast: None DLP: 804.23 mGy-cm FINDINGS : No intra-axial or extra-axial fluid collections were identified. No acute intracranial hemorrhage. There are areas of low- attenuation within the supratentorial white matter consistent with chronic microvascular ischemic changes. There is prominence of the ventricles and sulci consistent with diffuse cerebral volume loss. No midline shift or mass effect. The basal cisterns are patent. The posterior fossa and 4th ventricle are normal. No calvarial lesions are identified. The paranasal sinuses and mastoid air cells are clear. The orbits and globes are unremarkable. IMPRESSION: No acute intracranial abnormality. No intracranial hemorrhage. Chronic microvascular ischemic changes and diffuse cerebral volumeloss. LOCATION: B2 This CT exam was performed according to our departmental dose optimization program, which includes automated exposure control, adjustment of the mA and or kV according to patient size and/or use of iterative reconstruction technique. Electronically Signed by Grace Yanez on 2019 at 1642 Reported and signed by: Donna Yanez M.D. PAGE 1 Signed Report (CONTINUED) Name: TOBY STALEY [facility] ED : 1950 Age/S: 69 / [id number] [facility] Unit #: [id number] Loc: [place] [address] Phys: Dharmesh Irving MD Acct: [id number] Date: Status: ADM IN PHONE #: [phone] Exam Date: 04/22/2019 1634 FAX #: Reason: seizure EXAMS: CPT: [id number] CT HEAD/ BRAIN W/O CONT [id number] <Continued> CC: Dharmesh Irving MD Technologist:Dl Ritter, RT(R)(CT) CTDI: DLP: Trnscb Date/Time: 04/22/2019 (1641) 16 Orig Print D/T : S: 04/22/2019 (847) PAGE 2 Signed ReportUA RFLX MICR CULT IF [id number] 16:41:00 Test Item Value Reference Range Comments UA COLOR (test code=COLU) YELLOW discript YEL/STRAW UA APPEARANCE (test code=APPU) HAZY discript CLEAR UA GLUCOSE DIPSTICK (test NEGATIVE mg/dL NEG code=DGLUU) UA BILIRUBIN DIPSTICK (test NEGATIVE mg/dL NEG code=BILU) UA KETONE DIPSTICK (test 2+ mg/dL NEG code=KETU) UA SPECIFIC GRAVITY (test 1.020 SG 1.005-1.030 code=SGU) UA BLOOD DIPSTICK (test code=JENNYFER) 1+ mg/DL NEG UA PH DIPSTICK (test code=RANDI) 7.0 pH UNITS 5.0-7.0 UA PROTEIN DIPSTICK (test 2+ mg/dL NEG code=PROU) UA UROBILINIOGEN DIPSTICK (test 1.0 mg/dL <2.0 code=URO) UA NITRITE DIPSTICK (test POSITIVE SCREEN NEG code=BLAYNE) UA LEUKOCYTE ESTERASE DIPSTICK 3+ Leuk/mcL NEGATIVE (test code=LEUU) UA WBC (test code=WBCU) >50 #WBC/HPF 0-3 UA RBC (test code=RBCU) 10-20 #RBC/HPF 0-3 UA BACTERIA (test code=BACU) 1+ /HPF NONE-TRACE UA SQUAMOUS CELLS (test code=SQU) TRACE /HPF NONE UA CULTURE NEEDED? (test YES,WBC>10 & EPI<25 Culture CHK code=UACULT) Criteria SOURCE OF URINE: CLEAN CATCHIndication for culture: Dysuria/FrequencyUA RFLX MICR CULT IF [id number] 16:39:00 Test Item Value Reference Range Comments UA COLOR (test code=COLU) YELLOW discript YEL/STRAW UA APPEARANCE (test code=APPU) HAZY discript CLEAR UA GLUCOSE DIPSTICK (test code=DGLUU) NEGATIVE mg/dL NEG UA BILIRUBIN DIPSTICK (test code=BILU) NEGATIVE mg/dL NEG UA KETONE DIPSTICK (test code=KETU) 2+ mg/dL NEG UA SPECIFIC GRAVITY (test code=SGU) 1.020 SG 1.005-1.030 UA BLOOD DIPSTICK (test code=JENNYFER) 1+ mg/DL NEG UA PH DIPSTICK (test code=RANDI) 7.0 pH UNITS 5.0-7.0 UA PROTEIN DIPSTICK (test code=PROU) 2+ mg/dL NEG UA UROBILINIOGEN DIPSTICK (test code=URO) 1.0 mg/dL <2.0 UA NITRITE DIPSTICK (test code=BLAYNE) POSITIVE SCREEN NEG UA LEUKOCYTE ESTERASE DIPSTICK (test 3+ Leuk/mcL NEGATIVE code=LEUU) UA CULTURE NEEDED? (test code=UACULT) Criteria Culture CHK SOURCE OF URINE: CLEAN CATCHIndication for culture: Dysuria/Frequency
[2019-07-01] MEDS ORDERED: NA CHLORIDE 0.9% 3,000 ML ONE (12:17)
[2019-07-01 12:48] LABS: Absolute Lymphocytes (CBC) 1.2 K/uL (0.7-4.9); Basophils % 0.4 % (0-1.3); Hematocrit 34.7 % (39.6-49.0); Lymphocytes % 12.8 % (15.3-44.8); MPV 6.8 fL (7.6-11.3); RBC Red Blood Cell Count 4.05 M/uL (4.33-5.43)
[2019-07-01 12:58] LABS: ALT/SGPT 169 U/L (12-78); AST/SGOT 79 U/L (15-37); Albumin 3.1 g/dL (3.4-5.0); Alkaline Phosphatase 117 U/L (45-117); BUN Blood Urea Nitrogen 10 mg/dL (7-18); Bicarbonate 30 mmol/L (21-32); Bilirubin Direct 0.2 mg/dL (0-0.2); Bilirubin Total 0.6 mg/dL (0.2-1.0); Creatine Phosphokinase 43 U/L (39-308); Glucose Level 103 mg/dL (74-106); Potassium 4.4 mmol/L (3.5-5.1); Protein, Total 7.5 g/dL (6.4-8.2); Sodium Level 137 mmol/L (136-145); Troponin (Emerg Dept Use Only) < 0.02 ng/mL (0.0-0.045)
--- NOTE | 2019-07-01 13:00 | RAD REPORT ---
EXAM DESCRIPTION: Manuel Single View07/01/2019 12:51 pm CLINICAL HISTORY: Fever COMPARISON: 2018 FINDINGS: The lungs appear clear of acute infiltrate. The heart is normal size IMPRESSION: No acute abnormalities displayed
[2019-07-01 13:01] LABS: Protime INR 1.16
[2019-07-01] MEDS ORDERED: LIDOCAINE VISCOUS 2% SOLN 15 ML UDC ONE (14:11)
[2019-07-01 15:22] LABS: Urine Bacteria <20 /HPF (NONE SEEN); Urine Culture Reflex Order REFLEXED; Urine RBC <5 /HPF (NONE SEEN)
[2019-07-01] MEDS ORDERED: CEFTRIAXONE/SWI 1gm 1 GM/10 ML SYR ONE (15:58)
[2019-07-01 16:16] LABS: Urine Blood TRACE (NEG); Urine Glucose NEGATIVE (NEG); Urine Protein NEGATIVE (NEG); Urine Specific Gravity 1.015 (1.005-1.030); Urine pH 7.5 (5.0-7.0)
[2019-07-01] MEDS ORDERED: CEFTRIAXONE 1000 MG/VIAL ONE (16:44)
[2019-07-01] MEDS ORDERED: LIDOCAINE 1% MPF 2 ML AMPULE ONE (16:44)
--- NOTE | 2019-07-01 16:46 | ER ---
Nurse's Notes [facility] Name: Ken Sutherland Jr Age: 69 yrs Sex: Male : 1950 Arrival Date: 07/01/2019 Time: 11:10 Bed 24 Private MD: Diagnosis: Fever, unspecified;Urinary tract infection, site not specified;Altered mental status, unspecified Presentation: 06/30 11:53 Chief complaint:. 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 Pt has a jacques since February. temp here 100.6 resp 20 code sepsis called. Coronavirus screen: The patient has NOT traveled to a country currently being monitored by the CDC within the last 14 days. Proceed with normal triage procedures. The patient has NOT had contact with any known and/or suspected case of coronavirus. Proceed with normal triage procedures. Ebola Screen: Patient negative for fever greater than or equal to 101.5 degrees Fahrenheit, and additional compatible Ebola Virus Disease symptoms Patient denies exposure to infectious person. Patient denies travel to an Ebola-affected area in the 21 days before illness onset. No symptoms or risks identified at this time. Initial Sepsis Screen: Does the patient meet any 2 criteria? RR > 20 per min. Altered Mental Status. Yes Does the patient have a suspected source of infection? Yes: Dysuria/Frequency/Urgency/UTI If YES to both, name of provider notified: Milan AGUILAR Risk Assessment: Do you want to hurt yourself or someone else? Patient reports no desire to harm self or others. 11:53 Method Of Arrival: Ambulatory dm5 11:53 Acuity: JENAE 3 dm5 Assessment: 12:00 General: Appears in no apparent distress. Pain: Denies pain. Neuro: Level of dm5 Consciousness is awake, confused, Oriented to person, place. Cardiovascular: Denies chest pain. Respiratory: Airway is patent. : Jacques in place. Derm: Skin is pink, warm \T\ dry. Vital Signs: 11:53 BP 114 / 78; Pulse 96; Resp 20; Temp 100.6; Pulse Ox 93% on R/A; dm5 11:59 Weight 86.18 kg (R); dm5 13:13 BP 136 / 83; Pulse 85; Resp 18; Pulse Ox 97% on R/A; dm5 ED Course: 11:10 Patient arrived in ED. ag5 11:39 Milan Ang PA is PHCP. jr8 11:39 Ta Ospina MD is Attending Physician. jr8 11:50 Trisha Sheriff, RN is Primary Nurse. dm5 11:55 Triage completed. dm5 12:24 Inserted saline lock: 22 gauge in right upper arm, using aseptic technique. jb1 12:25 EKG done, by ED staff, reviewed by Milan AGUILAR. jb1 14:00 No provider procedures requiring assistance completed. dm5 14:00 Report given to April Covarrubias RN. dm5 14:37 Urine collected: Jacques catheter specimen, clear, nadine colored. Jacques cath inserted, jb1 using sterile technique, 18 Fr., by nj, balloon inflated, to gravity drainage, urine specimen collected. Administered Medications: 12:25 Drug: NS 0.9% (30 ml/kg) 30 ml/kg Route: IV; Rate: bolus; Site: Other; dm5 14:14 Drug: Viscous Lidocaine Liquid (4 %) 5 ml Route: Mucous Membrane; ls4 16:46 Drug: Rocephin (cefTRIAXone) 1 grams Route: IM; Site: right deltoid; ls4 17:03 Follow up: Response: No adverse reaction; Marked relief of symptoms ls4 17:04 Not Given (Duplicate Order): Rocephin 1 grams IV at calculated rate once; Given slow IV ls4 push per pharmacy instructions Outcome: 16:45 Discharge ordered by . jr8 17:46 Patient left the ED. ls4 Signatures: Romero Reynoso jb Trisha Sheriff, RN RN [facility] Milan Ang PA PA April Johansen, GUANAKITO RN ls4 Jacey Jovel [facility] Corrections: (The following items were deleted from the chart) 16:58 16:07 Rocephin 1 grams IV at calculated rate in right upper arm ls4 ls4
--- NOTE | 2019-07-01 16:46 | EDPHYS ---
Physician Documentation [facility] Name: Ken Sutherland Jr Age: 69 yrs Sex: Male : 1950 Arrival Date: 07/01/2019 Time: 11:10 Bed 24 Private MD: ED Physician Ta Ospina HPI: 06/30 13:07 This 69 yrs old Male presents to ER via Ambulatory with complaints of Fever, jr8 Confusion. 13:07 The patient reports fever, with an emergency department temperature of 100.6 degrees jr8 Fahrenheit. Onset: The symptoms/episode began/occurred acutely, today. Modifying factors: there are no obvious modifying factors. Associated signs and symptoms: Pertinent positives: confusion . Severity of symptoms: At their worst the symptoms were moderate in the emergency department the symptoms are unchanged. It is unknown whether or not the patient has had similar symptoms in the past. The patient has not recently seen a physician. stated that he has had frequent UTI's from indwelling catheter. Started to run fever today. Tmax 101. Stated that he was confused. 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 ROS: 13:07 Eyes: Negative for injury, pain, redness, and discharge, ENT: Negative for injury, jr8 pain, and discharge, Neck: Negative for injury, pain, and swelling, Cardiovascular: Negative for chest pain, palpitations, and edema, Respiratory: Negative for shortness of breath, cough, wheezing, and pleuritic chest pain, Abdomen/GI: Negative for abdominal pain, nausea, vomiting, diarrhea, and constipation, Back: Negative for injury and pain, MS/Extremity: Negative for injury and deformity, Skin: Negative for injury, rash, and discoloration. 13:07 Constitutional: Positive for fever. 13:07 Neuro: Positive for altered mental status. Exam: 13:07 Eyes: Pupils equal round and reactive to light, extra-ocular motions intact. Lids and jr8 lashes normal. Conjunctiva and sclera are non-icteric and not injected. Cornea within normal limits. Periorbital areas with no swelling, redness, or edema. ENT: Nares patent. No nasal discharge, no septal abnormalities noted. Tympanic membranes are normal and external auditory canals are clear. Oropharynx with no redness, swelling, or masses, exudates, or evidence of obstruction, uvula midline. Mucous membranes moist. Neck: Trachea midline, no thyromegaly or masses palpated, and no cervical lymphadenopathy. Supple, full range of motion without nuchal rigidity, or vertebral point tenderness. No Meningismus. Cardiovascular: Regular rate and rhythm with a normal S1 and S2. No gallops, murmurs, or rubs. Normal PMI, no JVD. No pulse deficits. Respiratory: Lungs have equal breath sounds bilaterally, clear to auscultation and percussion. No rales, rhonchi or wheezes noted. No increased work of breathing, no retractions or nasal flaring. Abdomen/GI: Soft, non-tender, with normal bowel sounds. No distension or tympany. No guarding or rebound. No evidence of tenderness throughout. Back: No spinal tenderness. No costovertebral tenderness. Full range of motion. Skin: Warm, dry with normal turgor. Normal color with no rashes, no lesions, and no evidence of cellulitis. MS/ Extremity: Pulses equal, no cyanosis. Neurovascular intact. Full, normal range of motion. 13:07 Neuro: Orientation: to person, place \T\ time. Mentation: slow to respond, confused, Having delusional episodes , Memory: immediate memory is intact, remote memory is intact. recent memory is intact, Cranial nerves: CN I not tested, CN II- XII are normal as tested, extraocular movements are intact, Facial palsy and sensory deficits are absent. Nystagmus is absent. Speech is clear and appropriate. Tongue strength is normal, Cerebellar function: is grossly normal, Motor: moves all fours, Sensation: no obvious gross deficits, Gait: not tested. seizure activity, is not displayed by the patient, Abnormal movements: there are no abnormal movements. 15:12 ECG was reviewed by the Attending Physician. jr8 Vital Signs: 11:53 BP 114 / 78; Pulse 96; Resp 20; Temp 100.6; Pulse Ox 93% on R/A; dm5 11:59 Weight 86.18 kg (R); dm5 13:13 BP 136 / 83; Pulse 85; Resp 18; Pulse Ox 97% on R/A; dm5 MDM: 11:39 Patient medically screened. jr8 16:43 Differential diagnosis: viral Infection, bacterial infection, pneumonia UTI, jr8 meningitis. Data reviewed: vital signs, nurses notes, lab test result(s), EKG, radiologic studies, plain films. Data interpreted: Pulse oximetry: on room air is 97 %. Interpretation: normal. Counseling: I had a detailed discussion with the patient and/or guardian regarding: the historical points, exam findings, and any diagnostic results supporting the discharge/admit diagnosis, lab results, radiology results, the need for outpatient follow up, a family practitioner, to return to the emergency department if symptoms worsen or persist or if there are any questions or concerns that arise at home. Response to treatment: the patient's symptoms have markedly improved after treatment. ED course: After fever was reduced and patient was hydrated he became back to baseline per family. Patient not wanting to stay in hospital for further evaluation of fever and AMS today. Recommended close f/u with PCP and to return at the first sight of decompensation. Patients is good with this plan. 06/30 11:58 Order name: Basic Metabolic Panel [facility] 06/30 11:58 Order name: Blood Culture Adult (2) [facility] 06/30 11:58 Order name: CBC with Diff [facility] 06/30 11:58 Order name: CPK [facility] 06/30 11:58 Order name: Lactate [facility] 06/30 11:58 Order name: LFT's [facility] 06/30 11:58 Order name: Procalcitonin [facility] 06/30 11:58 Order name: Protime (+inr) [facility] 06/30 11:58 Order name: Ptt, Activated [facility] 06/30 11:58 Order name: Troponin (emerg Dept Use Only) [facility] 06/30 11:58 Order name: Urine Microscopic Only; Complete Time: 15:25 [facility] 06/30 12:46 Order name: ETOH Level [facility] 06/30 12:46 Order name: Lactate; Complete Time: 12:51 [facility] 06/30 12:52 Order name: CBC with Automated Diff; Complete Time: 12:57 [facility] 06/30 11:58 Order name: Chest Single View XRAY [facility] 06/30 12:58 Order name: Basic Metabolic Panel; Complete Time: 13:12 [facility] 06/30 12:58 Order name: Liver (Hepatic) Function; Complete Time: 13:12 [facility] 06/30 12:58 Order name: Creatine Phosphokinase; Complete Time: 13:12 [facility] 06/30 12:58 Order name: Troponin (Emerg Dept Use Only); Complete Time: 13:12 [facility] 06/30 13:01 Order name: Protime (+INR); Complete Time: 13:12 [facility] 06/30 13:01 Order name: PTT, Activated Partial Thromb; Complete Time: 13:12 [facility] 06/30 13:12 Order name: Alcohol Serum/Plasma; Complete Time: 13:34 [facility] 06/30 13:15 Order name: Procalcitonin; Complete Time: 13:34 [facility] 06/30 13:40 Order name: Glucose, Ancillary Testing; Complete Time: 13:51 [facility] 06/30 14:40 Order name: RAD; Complete Time: 15:04 [facility] 06/30 15:17 Order name: Urine Dipstick--Ancillary (enter results); Complete Time: 16:43 06/30 15:24 Order name: Urine Culture [facility] 06/30 11:58 Order name: Accucheck; Complete Time: 13:33 [facility] 06/30 11:58 Order name: Cardiac monitoring; Complete Time: 13:11 [facility] 06/30 11:58 Order name: EKG - Nurse/Tech; Complete Time: 13:11 [facility] 06/30 11:58 Order name: IV Saline Lock - Large Bore; Complete Time: 13:11 5 06/30 11:58 Order name: Labs collected and sent; Complete Time: 13:11 5 06/30 11:58 Order name: O2 Per Protocol; Complete Time: 13:12 [facility] 06/30 11:58 Order name: O2 Sat Monitoring; Complete Time: 13:12 [facility] 06/30 11:58 Order name: Urine Dipstick-Ancillary (obtain specimen); Complete Time: 14:38 [facility] 06/30 15:27 Order name: EKG Electrocardiogram; Complete Time: 16:06 [facility] 06/30 16:46 Order name: Vital Signs; Complete Time: 16:58 jr8 EC:12 Rate is 83 beats/min. Rhythm is regular, Normal Sinus Rhythm. QRS [place] is Normal. AR jr8 interval is normal at 148 msec. QRS interval is normal at 98 msec. QT interval is normal at 441 msec. No Q waves. T waves are Normal. No ST changes noted. Clinical impression: Normal ECG. Interpreted by me. Reviewed by me. Administered Medications: 12:25 Drug: NS 0.9% (30 ml/kg) 30 ml/kg Route: IV; Rate: bolus; Site: Other; dm5 14:14 Drug: Viscous Lidocaine Liquid (4 %) 5 ml Route: Mucous Membrane; ls4 16:46 Drug: Rocephin (cefTRIAXone) 1 grams Route: IM; Site: right deltoid; ls4 17:03 Follow up: Response: No adverse reaction; Marked relief of symptoms ls4 17:04 Not Given (Duplicate Order): Rocephin 1 grams IV at calculated rate once; Given slow IV ls4 push per pharmacy instructions Disposition: 18:39 Co-signature as Attending Physician, Ta Ospina MD I agree with the assessment and kdr plan of care. Disposition: 07/01/19 16:45 Discharged to Home. Impression: Fever, unspecified, Urinary tract infection, site not specified, Altered mental status, unspecified. - Condition is Stable. - Discharge Instructions: Bacteremia, Fever, Adult, Urinary Tract Infection, Adult. - Prescriptions for Augmentin 875- 125 mg Oral Tablet - take 1 tablet by ORAL route every 12 hours for 10 days; 20 tablet. - Medication Reconciliation Form, Thank You Letter, Antibiotic Education, Prescription Opioid Use form. - Follow up: Private Physician; When: 1 - 2 days; Reason: Recheck today's complaints, Continuance of care, Re-evaluation by your physician. - Problem is new. - Symptoms have improved. Signatures: Dispatcher [employer] EDMS Trisha Sheriff RN RN dm5 Ta Ospina MD MD [facility] [place] Ang PA PA jr8 April Covarrubias, RN RN ls4 Corrections: (The following items were deleted from the chart) 13:51 13:07 Neuro: Orientation: to person, place \T\ time. Mentation: slow to respond, Memory: jr8 immediate memory is intact, remote memory is intact. recent memory is intact, Cranial nerves: CN I not tested, CN II- XII are normal as tested, extraocular movements are intact, Facial palsy and sensory deficits are absent. Nystagmus is absent. Speech is clear and appropriate. Tongue strength is normal, Cerebellar function: is grossly normal, Motor: moves all fours, Sensation: no obvious gross deficits, Gait: not tested. seizure activity, is not displayed by the patient, Abnormal movements: there are no abnormal movements, jr8 17:46 16:45 07/01/2019 16:45 Discharged to Home. Impression: Fever, unspecified; Urinary ls4 tract infection, site not specified; Altered mental status, unspecified. Condition is Stable. Forms are Medication Reconciliation Form, Thank You Letter, Antibiotic Education, Prescription Opioid Use. Follow up: Private Physician; When: 1 - 2 days; Reason: Recheck today's complaints, Continuance of care, Re-evaluation by your physician. Problem is new. Symptoms have improved. jr8
[2019-07-01 17:52] VITALS: TEMP 100.6
[2019-07-01 17:53] VITALS: BP 136/83; O2SAT 97
--- NOTE | 2019-07-02 08:54 | EKG ---
Test Date: 2019-07-01 Test Time: 12:04:56 Museum Tour Guide: RICHARD MEASUREMENT RESULTS: Intervals: Rate: 83 MI: 148 QRSD: 98 QT: 376 QTc: 441 [place]: P: 31 MI: 148 QRS: -15 T: 17 INTERPRETIVE STATEMENTS: Normal sinus rhythm Normal ECG Compared to ECG 02/07/2019 09:37:46 Atrial premature complex(es) no longer present Electronically Signed On 07-02-19 08:51:03 CDT by John Tucker
--- NOTE | 2019-07-03 12:34 | EKG ---
Test Date: 2019-07-01 Test Time: 15:56:45 Invas Tech: GLADYS MEASUREMENT RESULTS: Intervals: Rate: 84 TN: 160 QRSD: 102 QT: 382 QTc: 451 [place]: P: 52 TN: 160 QRS: 5 T: 46 INTERPRETIVE STATEMENTS: Normal sinus rhythm Normal ECG Compared to ECG 07/01/2019 12:04:56 No significant changes Electronically Signed On 07-03-19 12:31:04 CDT by John Tucker
== END 2019-07-01 17:46 | disposition home or self-care (01) ==
LOC: ER 11:07
DX: N39.0 Urinary tract infection, site not specified (principal); R41.82 Altered mental status, unspecified
CPT/HCPCS: 93005 ×2; 87040 ×2; 87088; 85025; 87086; 80048; 36415; 80320; 82550; 85610; 82947; 80076; 83605; 85730; 84484; 84145; 71045; 51702; 96372; 96374; 99284; J2001; J0696; J7030; 81003; 81015

== ENCOUNTER 2021-12-14 08:48 | Observation (INO) | payer OTHER ==
--- OUTSIDE RECORDS SUMMARY | 2021-12-14 08:53 | XMS REPORT | Continuity of Care Document ---
:1950 Author Organization [facility] t Address [address] [place] [address] Dr. Estrella. [address] [place] [address] Care Team Providers Name Role Phone KAYY GOMEZ Attending Clinician Unavailable Hugo Mosquera Attending Clinician Unavailable ERNESTO ORTIZ Attending Clinician Unavailable KAYY GOMEZ Attending Clinician Unavailable DOMENICO DALAL Attending Clinician Unavailable KAYY GOMEZ M.D. Attending Clinician Unavailable KRISTIN ORELLANA Attending Clinician Unavailable MD ERNESTO ORTIZ Attending Clinician Unavailable ABEL COE Attending Clinician Unavailable Bandar Dong Attending Clinician Unavailable Andria Hoffman Kelcey Attending Clinician Unavailable ANDRAE BAÑUELOS M.D. Attending Clinician Unavailable KRISTIN ORELLANA Admitting Clinician Unavailable ADAM COSBY Admitting Clinician Unavailable Physician, No Primary or Family Admitting Clinician Unavaila Andria Olivera Kelcey Admitting Clinician Unavailable Payers Payer Name Policy Type Policy Number Effective Date Expiration Date Dina petersen [facility] [id number] 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 s ans Lumbar Lumbar Problem Active UT adjacent adjacent Physic i segment 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 Foraminal Foraminal Problem Active UT stenosis stenosis Physic i of lumbar of lumbar ans region region Right knee 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 Physici ans Right knee Right knee Problem Active U T pain pain Physici ans Status Status Problem Active 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 right knee an s replacemen replacemen t using t using cement cement Allergies, Adverse Reactions, Alerts Allergy Allergy Status Severity Reaction(s) Onset Inactive Treating Comm ents Source Name Type Date Date Clinician Sulfa DA Active U Hives [facility] (Sulfona 8-13 mide 00:00: Antibiot 00 ics) Sulfa DA Active [place] [facility] (Sulfona 1- Clear mide 00:00: [place] Antibiot 00 Regiona ics) [facility] Sulfa DA Active MT RASH-RAISED 2019- [facility] (Sulfona 1-02 Clear mide 00:00: [place] Antibiot 00 Regiona ics) [facility] SULFA DA Active MT RASH-RAISED 2019- [facility] DRUGS 1- Clear 00:00: [place] 00 [facility] SULFA DA Active U 2000-0 [facility] DRUGS 4-25 [place] [facility]: [facility] sulfa Allergy Active UT to drug Physici (finding ans ) Family History Family Member Diagnosis Comments Start Date Stop Date Source Father Family history of chronic [facility] obstructive pulmonary disease Social History Smoking Status Start Date Stop Date Source Smokes tobacco daily (finding) U T [facility]icians Medications Ordered Filled Start Stop Current Ordering Indication Dosage Frequency Signature Comments Components Source Medication Medication Date Date Medication? Clinician (SIG) Name Name Celecoxib Celecoxib Yes KAYY 1 QD TAKE 1 UT 100 MG Oral 100 MG Oral 8-12 PARSLEY CAPSULE Physici Capsule Capsule 00:00: M.D. DAILY ans 00 Cymbalta 60 Cymbalta 60 Yes U T MG Oral MG Oral Physici Capsule Capsule ans Delayed Delayed Release Release Particles Particles Omeprazole- Omeprazole- Yes U T Sodium Sodium Physici Bicarbonate Bicarbonate a ns CAPS CAPS Gabapentin Gabapentin Yes UT CAPS CAPS Physici ans Tamsulosin Tamsulosin Yes UT HCl CAPS HCl CAPS Physici ans Amitriptyli Amitriptyli Yes U T ne HCl - 10 ne HCl - 10 P hysici MG Oral MG Oral ans Tablet Tablet Suboxone Suboxone Yes UT 8-2 MG 8-2 MG Physici Sublingual Sublingual ans Film Film Depakote Depakote Yes UT TBEC TBEC Physici ans Myrbetriq Myrbetriq Yes UT 25 MG Oral 25 MG Oral Phy sici Tablet Tablet ans Extended Extended Release 24 Release 24 Hour Hour Vital Signs Vital Name Observation Time Observation Value Comments Source Body height 2019-12-16 13:06:00 69 [in_us] [facility] Weight 2019-12-16 13:06:00 190 [lb_av] [facility] Body mass index (BMI) 2019-12-16 13:06:00 28.06 kg/m2 [facility] [Ratio] Body height 2019-10-28 13:42:00 69 [in_us] [facility] Weight 2019-10-28 13:42:00 190 [lb_av] [facility] Body mass index (BMI) 2019-10-28 13:42:00 28.06 kg/m2 [facility] [Ratio] Procedures Procedure Date / Time Performed Performing Clinician Sourc e Post Op Promis 29 Survey 2019-11-26 00:00:00 [facility] [QL] C-REACTIVE PROTEIN 2019-10-28 00:00:00 [facility] [QL] SED RATE BY MODIFIED 2019-10-28 00:00:[address] [facility] [address] Spine lumbar wo contrast 2018-03-17 00:00:00 [facility] [id number] MRI Spine lumbar wo contrast 2018-02-21 00:00:00 [facility] [id number] History of Back surgery [facility] History of Back Surgery [facility] History of Arthroscopy Knee [facility] History of Spinal cord [facility] i[facility] stimulation History of Prostate Surgery [facility] History of Total Knee [facility] ans Replacement Right Encounters Start End Encounter Admission Attending Care Care Encounter Source Date/Time Date/Time Type Type Clinicians Facility Department ID 2019-11-11 Outpatient PATRICIA JOR[facility] [id number] M H 10:53:32 [facility] 2019-04-22 [id number] 15:04:00 [id number] [facility] 2018-12-24 [facility] [id number] [facility] 15:06:00 2021-12-02 2021-12-02 Emergency [facility] [id number] [facility] 13:11:00 13:11:00 14 2021-12-02 2021-12-02 Emergency Emergency Guirges, [facility] [id number] [facility] 13:11:00 13:11:00 Hugo 14 2020-10-03 2020-10-03 Outpatient DIANA [facility] [id number] [place] 00:00:00 00:00:00 ERNESTO [address] 2020-07-20 2020-07-20 Outpatient PATRICIA [facility] [id number] [place] 00:00:00 00:00:00 KAYY [address] 2020-07-20 2020-07-20 Outpatient PATRICIA, [facility] [id number] [place] 00:00:00 00:00:00 KAYY [address] 2020-07-19 2020-07-19 Outpatient DALAL, [facility] [id number] [place] 00:00:00 00:00:00 SUNEESH [address] 2020-07-19 2020-07-19 Outpatient DALAL, [facility] [id number] 276 [place] 00:00:00 00:00:00 SUNEESH [address] 2020-07-19 2020-07-19 Outpatient DALAL, [facility] [id number] 277 [place] 00:00:00 00:00:00 SUNEESH [address] 2020-06-06 2020-06-06 Outpatient [facility] [id number] 274 [place] 00:00:00 00:00:[address] 2020-06-06 2020-06-06 Outpatient [facility] [id number] 274 [place] 00:00:00 00:00:[address] 2020-05-02 2020-05-02 Outpatient [facility] [id number] 386 [place] 00:00:00 00:00:[address] 2020-04-26 2020-04-26 Outpatient SRIKISHEN, [facility] [id number] [place] 00:00:00 00:00:00 ERNESTO [address] 2020-04-21 2020-04-21 Outpatient PARSLEY, [facility] [id number] [place] 00:00:00 00:00:00 KAYY [address] 2020-04-21 2020-04-21 Outpatient PARSLEY, [facility] [id number] [place] 00:00:00 00:00:00 KAYY [address] 2020-04-21 2020-04-21 Outpatient PARSLEY, [facility] [id number] [place] 00:00:00 00:00:00 KAYY [address] 2020-04-21 2020-04-21 Outpatient PARSLEY, [facility] [id number] [place] 00:00:00 00:00:00 KAYY [address] 2020-03-16 2020-03-16 Outpatient PARSLEY, [facility] [id number] [place] 00:00:00 00:00:00 KAYY [address] 2020-03-16 2020-03-16 Outpatient PARSLEY, [facility] [id number] [place] 00:00:00 00:00:00 KAYY [address] 2020-01-20 2020-01-20 Outpatient SRIMAGALISHEN, [facility] [id number] [place] 00:00:00 00:00:00 ERNESTO [address] 2019-12-23 2019-12-23 Outpatient DALAL, [facility] [id number] [place] 00:00:00 00:00:00 SUNEESH [address] 2019-12-16 2019-12-16 [facility] 68 [id number] [place] 13:00:00 13:00:00 t; Grace SULTANA - Sugar Ph ysici Leticia GOMEZ 1 laure SULTANA M.D. 2019-12-08 2019-12-08 Outpatient [facility] [id number] 473 [place] 00:00:00 00:00:[address] 2019-12-02 2019-12-[address] [facility] Orthopedics 68 [id number] [place] 15:00:00 15:00:00 t; Grace SULTANA - [place] [address] laure SULTANA M.D. 2019-11-27 2019-11-27 Outpatient SRIKISHEN, [facility] [id number] [place] 00:00:00 00:00:00 ERNESTO [address] 2019-11-17 2019-11-17 [facility] [id number] [place] 13:00:00 13:00:00 t; Grace SULTANA Ph laure Shetty M.D. 2019-10-28 2019-10-28 [facility] [id number] [place] 13:30:00 13:30:00 t; Grace SULTANA - [facility]ure SULTANA M.D. 2019-10-27 2019-10-27 Outpatient [facility] [id number] [place] 00:00:00 00:00:[address] 2019-10-19 2019-10-19 Outpatient SRIKISHEN, [facility] [id number] [place] 00:00:00 00:00:00 ERNESTO [address] 2019-10-13 2019-10-14 Outpatient KORIMILLI, [facility] [id number] [place] 00:00:00 00:00:00 KRISTIN [address] 2019-10-08 2019-10-08 Outpatient SRIMAGALISHEN, [facility] [id number] [place] 00:00:00 00:00:00 ERNESTO [address] 2019-10-08 2019-10-08 Outpatient SRIMAGALISHEN, [facility] [id number] [place] 00:00:00 00:00:00 ERNESTO [address] 2019-09-22 2019-09-22 Outpatient [facility] [id number] 376 [place] 00:00:00 00:00:[address] 2019-09-22 2019-09-22 Outpatient [facility] [id number] [place] 00:00:00 00:00:[address] 2019-09-22 2019-09-22 Outpatient DALAL, [facility] [id number] 376 [place] 00:00:00 00:00:00 SUNEESH [address] 2019-09-11 2019-09-11 Outpatient [facility] [id number] [place] 00:00:00 00:00:[address] 2019-08-26 2019-08-26 Outpatient SARAVANAN, [facility] [id number] [place] 00:00:00 00:00:00 ABEL [address] 2019-08-26 2019-08-26 Outpatient [facility] [id number] [place] 00:00:00 00:00:[address] 2019-08-26 2019-08-26 Outpatient [facility] [id number] [place] 00:00:00 00:00:[address] 2019-08-07 2019-08-07 Outpatient DALAL, [facility] [id number] 376 [place] 00:00:00 00:00:00 SUNEESH [address] 2019-08-07 2019-08-07 Outpatient SRIKISHEN, [facility] [id number] [place] 00:00:00 00:00:00 ERNESTO [address] 2019-06-23 2019-06-23 Outpatient SRIKISHEN, [facility] [id number] [place] 00:00:00 00:00:00 ERNESTO [address] 2019-06-08 2019-06-08 Outpatient DALAL, [facility] [id number] 168 [place] 00:00:00 00:00:00 SUNEESH [address] 2019-06-08 2019-06-08 Outpatient DALAL, [facility] [id number] 168 [place] 00:00:00 00:00:00 SUNEESH [address] 2019-06-05 2019-06-05 Outpatient DALAL, [facility] [id number] [place] 00:00:00 00:00:00 SUNEESH [address] 2019-06-05 2019-06-05 Outpatient DALAL, [facility] [id number] [place] 00:00:00 00:00:00 SUNEESH [address] 2019-06-05 2019-06-05 Outpatient DALAL, [facility] [id number] [place] 00:00:00 00:00:00 SUNEESH [address] 2019-06-04 2019-06-04 Outpatient DALAL, [facility] [id number] [place] 00:00:00 00:00:00 SUNEESH [address] 2019-05-22 2019-05-22 Outpatient DALAL, [facility] [id number] [place] 00:00:00 00:00:[facility] 2019-04-22 2019-04-22 Outpatient OMARI Dong [id number] [facility] 23:06:00 23:06:00 Bandar [id number] [facility] 2019-01-06 2019-01-14 Inpatient 3 [place], ENC[facility] MARY [id number] 2019 E[facility] 20:50:00 11:30:00 Andria 0917 2018-12-24 2018-12-24 Emergency E MHBL MHBL [id number] [facility] 10:03:00 10:03:00 2018-11-26 2018-11-26 Outpatient [facility] MED [id number] [facility] 08:20:00 08:20:00 2018-03-27 2018-03-27 Outpatient [facility] [id number] 14:30:00 17:01:28 2018-03-27 2018-03-[address] [facility] Orthopedics [id number] [place] 14:30:00 14:30:00 t; MANDI JACKSON, at [facility] ANDRAE JACKSON ans ANDREW, M.D. M.D. 2018-02-21 2018-02-[address] [facility] Orthopedics [id number] [place] 10:00:00 10:00:00 t; MANDI JACKSON at [facility] ANDRAE JACKSON ans ANDREW, M.D. M.D. 2018-02-11 2018-02-11 Appointmen MANDI [facility] [id number] [place] 09:15:00 09:15:00 t; Judith BAÑUELOS ANDREW, ans ANDREW, M.D. M.D. Results Test Description Test Time Test Comments Results Result Comments Source UA, Urinalysis Rflx Cult/Sedmt 2021-12-02 14:10:00 Test Item Value Reference Range Interpretation Comme nts Color,Urine (test code = UCOL) Yellow Yellow Clarity,Urine (test code = UCLAR) Clear Clear Ph, Urine (test code = UPH) 7.5 5.0-9.0 N Specific [place],Urine (test code = USG) 1.020 1.005-1.030 N Blood,Urine (test code = UBLD) Negative mg/dL Negative Protein,Urine (test code = UPRO) Negative mg/dL Negative Glucose,Urine (UA) (test code = UGLU) Negative mg/dL Negative Ketones,Urine (test code = UKET) Negative mg/dL Negative Nitrate,Urine (test code = UNIT) Negative Negative Bilirubin,Urine (test code = UBIL) Negative mg/dL Negative Urobilinogen,Urine (test code = UURO) 1.0 E.U./dL Normal Leukocyte Esterase,Urine (test code = ULEU) Negative mg/dL Negative Drug Screen,[id number] 14:10:00 Test Item Value Reference Range Interpretation Comments PCP Phencyclidine Screen,Urine (test Negative Negative code = PCPU) Amphetamine Screen,Urine (test code Negative Negative = AMPU) Methadone Screen,Urine (test code = Negative Negative METHU) Opiate Screen,Urine (test code = Negative Negative UOPIS) Barbituates Screen,Urine (test code Negative Negative = BARBU) Benzodiazepines Screen,Urine (test Negative Negative code = UBENZS) Cocaine Screen,Urine (test code = Negative Negative UCOCS) Cannabinoid Screen,Urine (test code Negative Negative = UTHCS) Propoxyphene Screen, Urine (test Negative Negative code = UPROP) Comprehensive Metabolic [id number] 14:10:00 Test Item Value Reference Range Interpretation Comments SODIUM (test code = NA) 138.0 mmol/L 136.0-145.0 N Potassium,K (test code = K) 4.8 mmol/L 3.0-5.1 N Chloride (test code = CL) 106 mmol/L 98-107 N Carbon Dioxide (test code = CO2) 27 mmol/L 20-31 N Anion Gap (test code = GAP) 5 mmol/L 5-15 N Blood Urea Nitrogen (test code = 19 mg/dL 9-23 N BUN) Creatinine (test code = CREATT) 0.79 mg/dL 0.55-1.02 N Creatinine Clr Calc Pharmacy 93.08 mL/min (test code = CRCLPHA) Estimated GFR ( Arina > 60 mL/min/1.73m2 (test code = EGFRAA) Estimated GFR (Non Afr Arina > 60 mL/min/1.73m2 (test code = EGFRNAA) BUN/Creatinine Ratio (test code 24 ratio 10-20 H = BCRATIO) Glucose (test code = GLU) 129 mg/dL 74-106 H Osmolality,Calculated (test code 289.7 = OSMOC) Calcium (test code = CA) 9.9 mg/dL 8.3-10.6 N Bilirubin,Total (test code = 0.4 mg/dL 0.2-1.1 N BILIT) Aspartate Amino Transferase 15 U/L 0-34 N (test code = AST) Alanine Aminotransferase (test 12 U/L 10-49 N code = ALT) Total Protein (test code = TP) 7.5 g/dL 5.7-8.2 N Albumin Level (test code = ALB) 5.0 g/dL 3.2-4.8 H Globulin (test code = GLOB) 2.5 mg/dL 2.3-3.5 N Albumin/Globulin Ratio (test 2.0 ratio 0.8-2.0 N code = AGRATIO) Alkaline Phosphatase (test code 94 U/L 46-116 N = ALP) Ethanol [id number] 14:10:00 Test Item Value Reference Range Interpretation Comments Ethanol (test code < 3 mg/dL The pharm acological = ETOH) response to blo od alcohol levels mayvary from individual to i ndividual. The fatal neo ntrationhas been reported t o be >400mg/dL. Complete Blood Count Auto [id number] 14:10:00 Test Item Value Reference Range Interpretation Comments White Blood Count (test code = 9.9 x10 3/uL 4.4-10.5 N WBCT) Red Blood Count (test code = 4.83 x10 6/uL 4.10-5.70 N RBC) Hemoglobin (test code = HGBT) 14.7 g/dL 13.4-17.4 N Hematocrit (test code = HCTT) 43.1 % 38.7-52.0 N Mean Corpuscular Volume (test 89.20 fL 80.00-100.00 N code = MCV) Mean Corpuscular Hemoglobin 30.4 pg 27.0-32.5 N (test code = MCH) Mean Corpuscular HGB Conc 34.10 g/dL 32.00-37.50 N (test code = MCHC) RDW Coefficient of Variation 15.3 % 11.5-14.5 H (test code = RDWCV) Platelet Count (test code = 269.0 x10 3/uL 140.0-440.0 N PLTT) Mean Platelet Volume (test 8.7 fL code = MPV) Immature Granulocytes % (Auto) 0.2 % 0.0-5.0 N (test code = IMMGRAN%) Neutrophils % (Auto) (test 63.5 % 36.0-70.0 N code = NE%) Lymphocytes % (Auto) (test 27.0 % 12.0-44.0 N code = LY%) Monocytes % (Auto) (test code 8.3 % 0.0-11.0 N = MO%) Eosinophils % (Auto) (test 0.7 % 0.0-7.0 N code = EO%) Basophils % (Auto) (test code 0.3 % 0.0-2.0 N = BA%) Immature Granulocytes # (Auto) 0.02 x10 3/uL (test code = IMMGRAN#) Neutrophils # (Auto) (test 6.3 x10 3/uL 1.6-7.4 N code = NE#) Lymphocytes # (Auto) (test 2.68 x10 3/uL 0.50-4.60 N code = LY#) Monocytes # (Auto) (test code 0.82 x10 3/uL 0.00-1.20 N = MO#) Eosinophils # (Auto) (test 0.07 x10 3/uL 0.00-0.74 N code = EO#) Basophils # (Auto) (test code 0.03 x10 3/uL 0.00-0.21 N = BA#) nRBC Abs (test code = NRBCA) 0 nRBC Pct (test code = NRBCP) 0 % Coronavirus PCR, COVID19 [id number] 13:47:00 Test Item Value Reference Range Interpretation Comments Coronavirus PCR, For use under Emergency COVID19 Rapid (test Use Authorization (EUA) code = SARSCOV2) only. Coronavirus PCR, Reference Range: COVID19 Rapid (test Negative code = NPFJSAB85.1) SARS-CoV-2 PCR Result: Negative by RT-PCR (test code = SARS-CoV-2 PCR Result:) COVID-19 Status: Asymptomatic[QL] SED RATE BY MODIFIED [id number] 13:45:00 Test Item Value Reference Range Interpretation Comments SED RATE BY MODIFIED WESTERGREN (test 9 mm/h < OR = 20 N code = SED RATE BY MODIFIED WESTERGREN) [facility][QL] C-REACTIVE [id number] 13:45:00 Test Item Value Reference Range Interpretation Comments C-REACTIVE PROTEIN (test code = 2.1 mg/L <8.0 N C-REACTIVE PROTEIN) [facility] PhysiciansInitial Promis 29 [id number] 15:29:33 Test Item Value Reference Range Interpretation Comments Pain Interference: (test code = Pain 66.9 1 N Interference:) Pain Intensity: (test code = Pain 53.7 1 N Intensity:) Physical Function: (test code = 34.1 1 N Physical Function:) Satisfaction Role: (test code = 37.1 1 N Satisfaction Role:) [place] PhysiciansSARS coronavirus 2 RNA [Presence] in Respiratory specimen by GURINDER with probe [id number] 15:01:12 Test Item Value Reference Range Interpretation Comments SARS coronavirus 2 RNA Not detected Not-Detected [Presence] in Respiratory specimen by GURINDER with probe detection (test code = 64090-0) - MRI BRAIN W/O [id number] 17:07:00 FAX: Ana Lyle [phone] Camps: PM St: DIS FAX: Bandar Dong MD [phone] FAX: Sudheer Tinajero [phone] Name: [facility] [place] [facility] 1950 Age/S: 69/M [address] [facility] [place] Unit #: [id number] Loc: [place] [address] Phys: Ana Sidhu MD Acct: [id number] Dis Date: [id number] Status: DIS IN PHONE #: [phone] Exam Date: 04/25/2019 1135 FAX #: Reason: juan EXAMS: CPT: [id number] MRI BRAIN W/O CONTRAST [id number] EXAM: MRI BRAIN WITHOUT CONTRAST INDICATION: Seizures COMPARISON: CT head dated April 22, 2019 TECHNIQUE: Multiplanar, multisequence MRI of thebrain was obtained without administration of intravenous contrast. [...] normal pressure hydrocephalus could have a similar ap pearance. No midline shift or mass effect. The basal cisterns are patent. The posterior fossa and 4th ventricle are normal. No intracranial hemorrhage. Intracranial flow voids are normal. The paranasalsinuses and mastoid air cells are clear. No [...] 1 Signed Report (CONTINUED) FAX: Ana Lyle Duy [phone] Camps: PM St: DIS FAX: Bandar Dong MD [phone] FAX: Sudheer Tinajero [phone] Name: TOBY SUTHERLAND [facility] : 1950 Age/S: 69/M [address] [address] [place] Unit #: [id number] Loc: [place] [address] Phys: Ana Sidhu MD Acct: [id number] Dis Date: 20190425 Status: DIS IN PHONE #: [phone] Exam Date: 04/25/2019 1136 FAX #: Reason: seziures EXAMS: CPT: [id number] MRI BRAIN W/O CONTRAST 76070 (Continued) CC: Ana Sidhu MD; Bandar Dong MD; Sudheer AGUILAR Technologist: Jasper Verdugo, RT(R)(MR) Transcribed Date/Time/By: 04/25/2019 (5569) :16 Orig Print D/T: S: 04/25/2019 (0085) PAGE 2 Signed ReportBASIC METABOLIC [id number] 04:43:00 Test Item Value Reference Range Interpretation Comments SODIUM (test code = NA) 139 mmol/L 134-147 N POTASSIUM (test code = 3.5 mmol/L 3.4-5.0 N K) CHLORIDE (test code = 107 mmol/L 100-108 N CL) CARBON DIOXIDE (test 25 mmol/L 21-32 N code = CO2) ANION GAP (test code = 7.0 GAP calc 4.0-15.0 N GAP) GLUCOSE (test code = 136 MG/DL 70-110 H GLU) BLOOD UREA NITROGEN 6 MG/DL 7-18 L (test code = BUN) GLOMERULAR FILTRATION >=60 max estimate >60 RATE (test code = GFR) estGFR CREATININE (test code = 0.5 MG/DL 0.8-1.3 L CREAT) CALCIUM (test code = CA) 8.7 MG/DL 8.5-10.1 N CBC W/AUTO [id number] 04:29:00 Test Item Value Reference Range Interpretation Comments WHITE BLOOD CELL (test code = 6.7 K/mm3 3.5-11.0 N WBC) RED BLOOD CELL (test code = RBC) 3.67 M/mm3 4.70-6.10 L HEMOGLOBIN (test code = HGB) 10.7 G/DL 12.3-15.9 L HEMATOCRIT (test code = HCT) 32.3 % 35.8-46.7 L MEAN CELL VOLUME (test code = 88.0 Fl 86.3-98.9 N MCV) MEAN CELL HGB (test code = MCH) 29.2 pg 28.9-34.4 N MEAN CELL HGB CONCETRATION (test 33.1 G/DL 32.1-34.5 N code = MCHC) RED CELL DISTRIBUTION WIDTH (test 14.5 SD 11.5-14.5 N code = RDW) PLATELET COUNT (test code = PLT) 374.0 K/mm3 150-450 N MEAN PLATELET VOLUME (test code = 8.50 fL 7.0-9.6 N MPV) NEUTROPHIL % (test code = NT%) 60.4 % 40-76 LYMPHOCYTE % (test code = LY%) 27.5 % 20.5-51.1 N MONOCYTE % (test code = MO%) 10.7 % 1.7-9.3 H EOSINOPHIL % (test code = EO%) 0.9 % 0.0-6.0 N BASOPHIL % (test code = BA%) 0.5 % 0.0-2.0 N NEUTROPHIL # (test code = NT#) 4.03 K/mm3 1.8-7.6 N LYMPHOCYTE # (test code = LY#) 1.8 K/mm3 0.6-3.0 N MONOCYTE # (test code = MO#) 0.7 K/mm3 0.2-1.5 N EOSINOPHIL # (test code = EO#) 0.1 K/mm3 0.0-0.4 N BASOPHIL # (test code = BA#) 0.0 K/mm3 0.0-0.2 N MANUAL DIFF REQUIRED (test code = NO DIFF/SCN CRITERIA MDIFF) CBC W/AUTO [id number] 22:47:00 Test Item Value Reference Range Interpretation Comments WHITE BLOOD CELL (test code = 6.4 K/mm3 3.5-11.0 N WBC) RED BLOOD CELL (test code = RBC) 3.55 M/mm3 4.70-6.10 L HEMOGLOBIN (test code = HGB) 10.5 G/DL 12.3-15.9 L HEMATOCRIT (test code = HCT) 31.7 % 35.8-46.7 L MEAN CELL VOLUME (test code = 89.3 Fl 86.3-98.9 N MCV) MEAN CELL HGB (test code = MCH) 29.6 pg 28.9-34.4 N MEAN CELL HGB CONCETRATION (test 33.1 G/DL 32.1-34.5 N code = MCHC) RED CELL DISTRIBUTION WIDTH (test 14.9 SD 11.5-14.5 H code = RDW) PLATELET COUNT (test code = PLT) 362.0 K/mm3 150-450 N MEAN PLATELET VOLUME (test code = 8.30 fL 7.0-9.6 N MPV) NEUTROPHIL % (test code = NT%) 53.7 % 40-76 LYMPHOCYTE % (test code = LY%) 31.0 % 20.5-51.1 N MONOCYTE % (test code = MO%) 13.5 % 1.7-9.3 H EOSINOPHIL % (test code = EO%) 1.3 % 0.0-6.0 N BASOPHIL % (test code = BA%) 0.5 % 0.0-2.0 N NEUTROPHIL # (test code = NT#) 3.44 K/mm3 1.8-7.6 N LYMPHOCYTE # (test code = LY#) 2.0 K/mm3 0.6-3.0 N MONOCYTE # (test code = MO#) 0.9 K/mm3 0.2-1.5 N EOSINOPHIL # (test code = EO#) 0.1 K/mm3 0.0-0.4 N BASOPHIL # (test code = BA#) 0.0 K/mm3 0.0-0.2 N MANUAL DIFF REQUIRED (test code = NO DIFF/SCN CRITERIA MDIFF) - US RETRO [id number] 16:17:00 Name: TOBY SUTHERLAND [facility] : 1950 Age/S: 69 / M [id number] Unit #: [id number] Loc: [place] [address] Phys: Bandar Dong MD Acct: [id number] Dis Date: Status: ADM IN [facility] NE #: [phone] Exam Date: 04/23/2019 1430 FAX #: Reason: PELVIC PAIN EXAMS: CPT: [id number] US RETRO LTD [id number] EXAMINATION: - US RETRO LTD. LOCATION: S17. HISTORY: Pelvic pain, trouble draining bladder. COMPARISON: None. FINDINGS: Sonographic evaluation of the kidneys and bladder was performed utilizing javier scale, pulse Doppler and color flow imaging. The right kidney measures 11.6 cm and the left kidney measures 11.7 cm. The parenchymal echogenicity is within normal limits on both sides. Thereis no hydronephrosis. No calculus is identified. Urinary bladder is decompressed by the presence of Lion catheter, thus could not be evaluated. IMPRESSION: No hydronephrosis. at 1617 Reported and signed by: Vangie Gonzalez M.D. CC: Bandar Dong MD Technologist: Sully Macedo, RT(R),CALVIN(AB) Trniab Date/Time: 04/23/2019 (1617) Sydni.ANS4 PAGE 1 Signed Report Name: TOBY SUTHERLAND [facility] : 1950 Age/S: 69 / M [id number] Unit #: [id number] Loc: [place] [address] Phys: Bandar Dong MD Acct: [id number] Dis Date: Status: ADM IN PHONE #: [phone] Exam Date: 04/23/2019 1430 FAX #: Reason: PELVIC PAIN EXAMS: CPT: [id number] [facility] [id number] (Continued) Orig Print D/T: S: 04/23/2019 (1621) Probe: PAGE 2 Signed ReportCOMPREHENSIVE METABOLIC [id number] 04:20:00 Test Item Value Reference Range Interpretation Comments SODIUM (test code = NA) 135 mmol/L 134-147 N POTASSIUM (test code = 3.4 mmol/L 3.4-5.0 N K) CHLORIDE (test code = 101 mmol/L 100-108 N CL) CARBON DIOXIDE (test 28 mmol/L 21-32 N code = CO2) ANION GAP (test code = 6.0 GAP calc 4.0-15.0 N GAP) GLUCOSE (test code = 97 MG/DL 70-110 N GLU) BLOOD UREA NITROGEN 5 MG/DL 7-18 L (test code = BUN) GLOMERULAR FILTRATION >=60 max estimate >60 RATE (test code = GFR) estGFR CREATININE (test code = 0.7 MG/DL 0.8-1.3 L CREAT) TOTAL PROTEIN (test code 6.7 G/DL 6.4-8.2 N = PROT) ALBUMIN (test code = 2.9 G/DL 3.4-5.0 L ALB) GLOBULIN (test code = 3.8 GM/dL GLOB) ALBUMIN/GLOBULIN RATIO 0.8 RATIO 1.2-2.2 L (test code = A/G) CALCIUM (test code = CA) 8.8 MG/DL 8.5-10.1 N BILIRUBIN TOTAL (test 0.20 MG/DL 0.2-1.2 N code = BILT) SGOT/AST (test code = 27 Unit/L 15-37 N AST) SGPT/ALT (test code = 31 Unit/L 12-78 N ALT) ALKALINE PHOSPHATASE 80 Unit/L 50-136 N TOTAL (test code = ALKP) [id number] 04:20:00 Test Item Value Reference Range Interpretation Comments PHOSPHOROUS (test code = PHOS) 3.1 MG/DL 2.5-4.9 N [id number] 04:20:00 Test Item Value Reference Range Interpretation Comments MAGNESIUM (test code = MAG) 2.3 MG/DL 1.8-2.4 N CBC W/AUTO [id number] 04:09:00 Test Item Value Reference Range Interpretation Comments WHITE BLOOD CELL (test code = 6.4 K/mm3 3.5-11.0 N WBC) RED BLOOD CELL (test code = RBC) 3.55 M/mm3 4.70-6.10 L HEMOGLOBIN (test code = HGB) 10.5 G/DL 12.3-15.9 L HEMATOCRIT (test code = HCT) 31.7 % 35.8-46.7 L MEAN CELL VOLUME (test code = 89.3 Fl 86.3-98.9 N MCV) MEAN CELL HGB (test code = MCH) 29.6 pg 28.9-34.4 N MEAN CELL HGB CONCETRATION (test 33.1 G/DL 32.1-34.5 N code = MCHC) RED CELL DISTRIBUTION WIDTH (test 14.9 SD 11.5-14.5 H code = RDW) PLATELET COUNT (test code = PLT) 362.0 K/mm3 150-450 N MEAN PLATELET VOLUME (test code = 8.30 fL 7.0-9.6 N MPV) NEUTROPHIL % (test code = NT%) 53.7 % 40-76 LYMPHOCYTE % (test code = LY%) 31.0 % 20.5-51.1 N MONOCYTE % (test code = MO%) 13.5 % 1.7-9.3 H EOSINOPHIL % (test code = EO%) 1.3 % 0.0-6.0 N BASOPHIL % (test code = BA%) 0.5 % 0.0-2.0 N NEUTROPHIL # (test code = NT#) 3.44 K/mm3 1.8-7.6 N LYMPHOCYTE # (test code = LY#) 2.0 K/mm3 0.6-3.0 N MONOCYTE # (test code = MO#) 0.9 K/mm3 0.2-1.5 N EOSINOPHIL # (test code = EO#) 0.1 K/mm3 0.0-0.4 N BASOPHIL # (test code = BA#) 0.0 K/mm3 0.0-0.2 N MANUAL DIFF REQUIRED (test code = DIFF/SCN CRITERIA MDIFF) CBC W/AUTO [id number] 16:54:00 Test Item Value Reference Range Interpretation Comments WHITE BLOOD CELL (test code = 5.6 K/mm3 3.5-11.0 N WBC) RED BLOOD CELL (test code = RBC) 3.67 M/mm3 4.70-6.10 L HEMOGLOBIN (test code = HGB) 10.9 G/DL 12.3-15.9 L HEMATOCRIT (test code = HCT) 32.6 % 35.8-46.7 L MEAN CELL VOLUME (test code = 88.8 Fl 86.3-98.9 N MCV) MEAN CELL HGB (test code = MCH) 29.7 pg 28.9-34.4 N MEAN CELL HGB CONCETRATION (test 33.4 G/DL 32.1-34.5 N code = MCHC) RED CELL DISTRIBUTION WIDTH (test 14.9 SD 11.5-14.5 H code = RDW) PLATELET COUNT (test code = PLT) 352.0 K/mm3 150-450 N MEAN PLATELET VOLUME (test code = 8.00 fL 7.0-9.6 N MPV) NEUTROPHIL % (test code = NT%) 70.7 % 40-76 N LYMPHOCYTE % (test code = LY%) 22.3 % 20.5-51.1 N MONOCYTE % (test code = MO%) 6.8 % 1.7-9.3 N EOSINOPHIL % (test code = EO%) 0.0 % 0.0-6.0 N BASOPHIL % (test code = BA%) 0.2 % 0.0-2.0 N NEUTROPHIL # (test code = NT#) 3.94 K/mm3 1.8-7.6 N LYMPHOCYTE # (test code = LY#) 1.2 K/mm3 0.6-3.0 N MONOCYTE # (test code = MO#) 0.4 K/mm3 0.2-1.5 N EOSINOPHIL # (test code = EO#) 0.0 K/mm3 0.0-0.4 N BASOPHIL # (test code = BA#) 0.0 K/mm3 0.0-0.2 N MANUAL DIFF REQUIRED (test code = NO DIFF/SCN CRITERIA MDIFF) BASIC METABOLIC [id number] 16:50:00 Test Item Value Reference Range Interpretation Comments SODIUM (test code = NA) 137 mmol/L 134-147 N POTASSIUM (test code = 4.0 mmol/L 3.4-5.0 N K) CHLORIDE (test code = 102 mmol/L 100-108 N CL) CARBON DIOXIDE (test 29 mmol/L 21-32 N code = CO2) ANION GAP (test code = 6.0 GAP calc 4.0-15.0 N GAP) GLUCOSE (test code = 113 MG/DL 70-110 H GLU) BLOOD UREA NITROGEN 6 MG/DL 7-18 L (test code = BUN) GLOMERULAR FILTRATION >=60 max estimate >60 RATE (test code = GFR) estGFR CREATININE (test code = 0.8 MG/DL 0.8-1.3 N CREAT) CALCIUM (test code = CA) 9.0 MG/DL 8.5-10.1 N - CT HEAD/BRAIN W/O [id number] 16:42:00 Name: TOBY SUTHERLAND [facility] : 1950 Age/S: 69 / M [id number] Unit #: [id number] Loc: [place] [address] Phys: Dharmesh Irving MD Acct: [id number] Dis Date: Status: ADM IN PHONE #: [phone] Exam Date: 04/22/2019 1634 FAX #: Reason: seizure EXAMS: CPT: [id number] CT HEAD/BRAIN W/O CONT [id number] EXAM: CT BRAIN WITHOUT CONTRAST INDICATION: SEIZURE COMPARISON: None availableTECHNIQUE: Routine axial CT images of the brain were obtained without venous contrast. IV contrast: None DLP: 804.23 mGy-cm FINDINGS: No intra-axial or extra-axial fluid collections were identified. No acute intracranial hemorrhage. There are areas of low-attenuation within the supratentorial white matter consistent with chronic microvascular ischemic changes. There is prominence of the ventricles a nd sulci consistent with diffuse cerebral volume loss. No midline shift or mass effect. The basal cisterns are patent. The posterior fossa and 4th ventricle are normal. No calvarial lesions are identified. The paranasal sinuses and mastoid air cells are clear. The orbits and globes are unremarkable. IMPRESSION: No acute intracranial abnormality. No intracranial hemorrhage. Chronic microvascular ischemic changes and diffuse cerebral volume loss. LOCATION: B2 This CT exam was performed according to our departmental dose optimization program, which includes automated exposure control, adjustment of the mA and or kV according to patient size and/or use of iterative reconstruction technique. at 1642 Reported and signed by: Donna Yaenz M.D. PAGE 1 Signed Report (CONTINUED) Name: TOBY SUTHERLAND [facility] : 1950 Age/S: 69 / M [address] [address] Unit #: [id number] Loc: [place] [address] Phys: Dharmesh Irving MD A cct: [id number] Dis Date: Status: ADM IN PHONE #: [phone] Exam Date: 04/22/2019 1634 FAX #: Reason: seizure EXAMS: CPT: [id number] CT HEAD/BRAIN W/O CONT [id number] (Continued) CC: Dharmesh Irving MD Technologist:Dl Ritter, RT(R)(CT) CTDI: DLP: Trnscb Date/Time: 04/22/2019 (539) [place] Orig Print D/T: S: 04/22/2019 (1942) PAGE 2 Signed ReportUA RFLX MICR CULT IF INDICATED 2019-04-22 16:41:00 Test Item Value Reference Range Interpretation Comments UA COLOR (test code = YELLOW discript YEL/STRAW COLU) UA APPEARANCE (test code HAZY discript CLEAR A = APPU) UA GLUCOSE DIPSTICK (test NEGATIVE mg/dL NEG code = DGLUU) UA BILIRUBIN DIPSTICK NEGATIVE mg/dL NEG (test code = BILU) UA KETONE DIPSTICK (test 2+ mg/dL NEG A code = KETU) UA SPECIFIC GRAVITY (test 1.020 SG 1.005-1.030 code = SGU) UA BLOOD DIPSTICK (test 1+ mg/DL NEG A code = JENNYFER) UA PH DIPSTICK (test code 7.0 pH UNITS 5.0-7.0 = RANDI) UA PROTEIN DIPSTICK (test 2+ mg/dL NEG A code = PROU) UA UROBILINIOGEN DIPSTICK 1.0 mg/dL <2.0 (test code = URO) UA NITRITE DIPSTICK (test POSITIVE SCREEN NEG A code = BLAYNE) UA LEUKOCYTE ESTERASE 3+ Leuk/mcL NEGATIVE A DIPSTICK (test code = LEUU) UA WBC (test code = WBCU) >50 #WBC/HPF 0-3 A UA RBC (test code = RBCU) 10-20 #RBC/HPF 0-3 A UA BACTERIA (test code = 1+ /HPF NONE-TRACE A BACU) UA SQUAMOUS CELLS (test TRACE /HPF NONE code = SQU) UA CULTURE NEEDED? (test YES,WBC>10 & EPI<25 Culture CHK code = UACULT) Criteria SOURCE OF URINE: CLEAN CATCHIndication for culture: Dysuria/FrequencyUA RFLX MICR CULT IF [id number] 16:39:00 Test Item Value Reference Range Interpretation Comments UA COLOR (test code = COLU) YELLOW discript YEL/STRAW UA APPEARANCE (test code = HAZY discript CLEAR A APPU) UA GLUCOSE DIPSTICK (test NEGATIVE mg/dL NEG code = DGLUU) UA BILIRUBIN DIPSTICK (test NEGATIVE mg/dL NEG code = BILU) UA KETONE DIPSTICK (test code 2+ mg/dL NEG A = KETU) UA SPECIFIC GRAVITY (test 1.020 SG 1.005-1.030 code = SGU) UA BLOOD DIPSTICK (test code 1+ mg/DL NEG A = JENNYFER) UA PH DIPSTICK (test code = 7.0 pH UNITS 5.0-7.0 RANDI) UA PROTEIN DIPSTICK (test 2+ mg/dL NEG A code = PROU) UA UROBILINIOGEN DIPSTICK 1.0 mg/dL <2.0 (test code = URO) UA NITRITE DIPSTICK (test POSITIVE SCREEN NEG A code = BLAYNE) UA LEUKOCYTE ESTERASE 3+ Leuk/mcL NEGATIVE A DIPSTICK (test code = LEUU) UA CULTURE NEEDED? (test code Criteria Culture CHK = UACULT) SOURCE OF URINE: CLEAN CATCHIndication for culture: Dysuria/FrequencyCT Spine lumbar wo contrast [id number] 10:18:00CT lumbar spine without contrast 03/21/2018HISTORY: Spondylolisthesis.PROCEDURE: Multiple axial images from the lower thoracic spine to the midsacrum were obtained without contrast. Coronal and sagittal reconstructedimages were performed. DLP: 1066Comparison is made to magnetic resonance imaging performed on 03/12/2018FINDINGS: Expansion of the L4- L5 disc space is noted with bony spacer. Thereare posterior right pedicle screws at L5-S1 with intact stabilization rods. Noloosening around the screws isnoted. Anterior screw stabilizing a bony spacerat L5-S1 is noted. Given the density of the bony spacer at L4-L5, there isdiffuse scatter artifact. This limits evaluation of the spinal canal at theL4-Z7eebwk. There is no cortical irregularity or lucency to suggest an acutefracture. No aggressive lyticor blastic lesion is present. S-shaped curvatureof the lumbar spine is noted. Moderate disc space narrowing and endplatesclerotic changes are present at L1-L2 and L2-L3. There is moderate bilateralneural foraminal narrowing at L1-L2 and L2-L3. Moderate bilateral facethypertrophy is present at L2-L3, L3-L4, L4-L5, and L5-S1. Left L5 laminotomyhas been performed. Aorta contains calcifications. No prevertebral orparavertebral soft tissue swelling is present.IMPRESSION:1. Postoperative changes at L4-L5 and L5-S1 as described. Dense metallicartifact at L4-L5 limits evaluation the spinal canal this level.2. Moderate degenerative disc disease at L1-L2 and L2-L3. Moderate bilateralneural foraminal narrowing at these levels.3. No acute fracture or dislocation.SL: [id number] by: Kayy Collins MDDictated Date/time: 03/24/18 10:14Electronically Signed by: Kayy Collins MD 03/24/1810:20FINAL REPORTUT [facility] Spine lumbar wo contrast [id number] 19:36:00EXAM: MRI LUMBAR SPINE WITHOUT CONTRASTDATE: 03/12/2018 at 8:17 PMINDICATION: 68-year-old male patient with history of chronic low back pain and.Status post bilateral laminectomy, posterior fixation, and interbody fusion.COMPARISON: MR of the lumbar spine dated 05/13/2016.TECHNIQUE: Multiplanar, multisequence noncontrast MR imaging of the lumbarspine. Susceptibility artifact derived from the metallichardware obscures theevaluation of the lumbosacral junction structures.IV contrast: None.FINDINGS:Postoperative changes of discectomy and interbody fusion at L4-L5 and L5-S1,associated with right transpedicular screw fixation from L5-S1. These findingscannot be fully evaluated by magnetic resonance.Five fully segmented, lumbar type vertebral bodies are identified.Levoscoliosis of the lumbar spine of 15 degrees.The bone marrow signal of the visualized vertebral bodies is unremarkable.Extensive degenerative disc changes, better described below.The conus medullaris is normal in size and signal intensity, and terminates atL1- L2.Paraspinal muscle atrophy. The visualized retroperitoneal organs areunremar kable.Individual levels:L1-L2: Degenerative disc collapse. Posterior annular bulge indenting the thecalsac. Left moderate foraminal stenosis encroaching upon the exiting L1 nerveroot. The spinal canal is patent.L2-L3: Retrolisthesis of 2 mm (<25%), associated with degenerative disccollapse. Bone marrow edema along the opposing endplates (Modic I). Posteriorannular bulge indenting the thecal sac. Bilateral facet joint arthropathyassociated with bilateral moderate foraminal stenosis encroaching upon theexiting L2 nerve roots.L3-L4: Retrolisthesis of 3 mm (less than 25%), associated with degenerativedisc height loss and desiccation. Posterior annulus bulge indenting the thecalsac. Bilateral facet arthropathy associated with thickening of the ligamentumflavum, resulting in bilateral moderate foraminal stenosis encroaching upon theexiting L3 nerve roots.L4-L5: The intervertebral space is not evaluable. Bilateral facet jointarthropathy associated with thickening of the ligamentum flavum resulting i nmild spinal canal stenoses given the crowding of the cauda equina nerve roots.The neural foramina cannot be accurately evaluated in the present examination.L5-S1: Intervertebral disc replacement. Bilateral facet joint hypertrophy andthickening of the ligamentum flavum. Left L5 laminectomy. The spinalcanal ispatent. The neural foramina cannot be fully evaluated in the presentexamination.IMPRESSION:1. Complex postoperative changes at the L4-L5 and L5-S1. Evaluation of theneural foramina at L4-L5 is markedly limited due to susceptibility artifactrelated to metallic hardware. CT lumbar spine would be helpful for betterevaluation.2. Extensive and severe spondylytic changes of the lumbar spine as described,resulting in degenerative disc collapse, posterior annulus bulge and abuttingdegrees of bilateral moderate foraminal stenosis at multiple levels. Nodefinite nerve root compression to the limitation of exam.3. Interval appearance of signal changes in the left aspect of the endplatesat L2- L3 (series 301a image #13) likely representing degenerative changes.--This report was dictated by a Agent [employer]/Fellow. I have personallyreviewed the images aswell as the Resident's interpretation and agree with the findings.Read by: Sridhar Bee Resident: Sridhar Beeictated Date/time: 03/13/18 14:38Electronically Signed by: Rigo Hawthorne MD 03/14/1810:58FINAL REPORTUT [facility]MRI Spine lumbar wo contrast [id number] 11:51:00 Test Item Value Reference Range Interpretation Comments Spine lumbar wo Cancel Reason: Patient contrast MRI (test code Refused = [id number]) [facility][U] XRAY SPINE LUMBOSACRAL 2 OR 3 S [id number] 10:03:00 Images acquired, not reported on this accession number.[facility]
[2021-12-14 10:10] LABS: Absolute Lymphocytes (CBC) 1.5 K/uL (0.7-4.9); Hematocrit 37.2 % (39.6-49.0); Lymphocytes % 22.7 % (15.3-44.8); MCV 89.3 fL (80-100); MPV 6.3 fL (7.6-11.3); RBC Red Blood Cell Count 4.17 M/uL (4.33-5.43)
[2021-12-14 10:11] LABS: Protime INR 1.05
[2021-12-14] MEDS ORDERED: NA CHLORIDE 0.9% 500 ML ONE (10:13)
[2021-12-14 10:28] LABS: Bilirubin Direct 0.1 mg/dL (0-0.2); Bilirubin Total 0.3 mg/dL (0.2-1.0); Magnesium 2.4 mg/dL (1.8-2.4); Potassium 3.9 mmol/L (3.5-5.1); Protein, Total 6.6 g/dL (6.4-8.2); Troponin High Sensitivity 3.5 pg/mL (<58.9)
--- NOTE | 2021-12-14 10:41 | RAD REPORT ---
EXAM DESCRIPTION: RAD - Chest Single View - 12/14/2021 10:25 am CLINICAL HISTORY: general weakness COMPARISON: Portable 07/01/2011 TECHNIQUE: AP portable chest image was obtained 12/14/2021 10:25 am . FINDINGS: Chronic interstitial fibrotic changes are present accentuated by shallow inspiration. No p eripheral mass or consolidation. No failure or volume overload. Heart and vasculature are normal. No measurable pleural effusion and no pneumothorax. No acute bony abnormality seen. No acute aortic find ings suspected. IMPRESSION: No acute cardiopulmonary process. Chronic interstitial lung disease is present not clearly different from comparison.
--- NOTE | 2021-12-14 10:44 | RAD REPORT ---
EXAM DESCRIPTION: CT - Head Brain Wo Cont - 12/14/2021 10:32 am CLINICAL HISTORY: unsteady gait COMPARISON: No comparisons TECHNIQUE: Axial 5 mm thick images of the head were obtained without IV contrast. All CT scans are performed using dose optimization technique as appropriate and may include automated exposure control or mA/KV adjustment according to patient size. FINDINGS: No intracranial hemorrhage, mass, edema or shift of mid-line structures. No acute cortical based infarction. No cortical edema or sulcal effacement. Prominent for age atrophy changes are pres ent. Ventricles are in proportion to volume loss. Cerebral white matter chronic ischemic changes mild . No abnormal extra-axial fluid collections. Mastoid air cells and visualized portions of the paranasal sinuses are clear. No acute bony findings. IMPRESSION: No acute intracranial finding.
[2021-12-14] MEDS ORDERED: THIAMINE 200 MG/2 ML INJ ONE (11:43)
[2021-12-14] MEDS ORDERED: FOLIC ACID 5 MG/ML VIAL ONE (11:44)
[2021-12-14 12:12] LABS: Urine Blood Negative (Negative); Urine Glucose Negative (Negative); Urine Protein Negative (Negative); Urine Specific Gravity 1.015 (1.005-1.030)
[2021-12-14 12:34] LABS: Urine Bacteria None Seen /HPF (<20); Urine RBC <5 /HPF (None Seen)
--- NOTE | 2021-12-14 13:22 | ER ---
Nurse's Notes [facility] Name: Ken Sutherland Jr Age: 71 yrs Sex: Male : 1950 Arrival Date: 12/14/2021 Time: 08:50 Bed 20 Private MD: Diagnosis: Unspecified abnormalities of gait and mobility;Weakness;Repeated falls Presentation: 12/14 09:13 Chief complaint: Patient states: i went to an alcohol rehab for 7 days, he got out last iw Saturday, he left early because he got sick , since he's been home he's had cramps, falling down, he fell twice the first day he got home, last drink was he Saturday before last. Coronavirus screen: At this time, the client does not indicate any symptoms associated with coronavirus-19. Ebola Screen: Patient negative for fever greater than or equal to 101.5 degrees Fahrenheit, and additional compatible Ebola Virus Disease symptoms Patient denies exposure to infectious person. Patient denies travel to an Ebola-affected area in the 21 days before illness onset. No symptoms or risks identified at this time. 09:13 Method Of Arrival: Wheelchair iw 09:16 Initial Sepsis Screen: Does the patient meet any 2 criteria? No. Patient's initial iw sepsis screen is negative. Does the patient have a suspected source of infection? No. Patient's initial sepsis screen is negative. Risk Assessment: Do you want to hurt yourself or someone else? Patient reports no desire to harm self or others. Onset of symptoms was December 02, 2021. 09:16 Acuity: JENAE 3 iw Historical: - Allergies: 09:15 Sulfa (Sulfonamide Antibiotics); iw - PMHx: 09:30 Alcoholism; aa5 - Immunization history:: Adult Immunizations unknown, Client reports receiving the 2nd dose of the Covid vaccine, Last tetanus immunization: unknown. - Social history:: Smoking status: Patient denies any tobacco usage or history of. Patient uses alcohol, on a daily basis. Pt was in alcohol rehab for 9 days and left AMA 2 days ago because"they were trying to kill me. They took me off my Elavil and I couldn't sleep." Pt reports generalized symptoms of feeling unwell including headaches, abdominal pain, nausea, fatigue. When asked if he felt like these symptoms could be attributed to alcohol withdrawal, pt stated that he only drank beer and wine so he did not believe he had alcohol withdrawal but was withdrawing from Elavil. Screenin:20 Abuse screen: Denies threats or abuse. Nutritional screening: No deficits noted. aa5 Tuberculosis screening: No symptoms or risk factors identified. Fall Risk Fall in past 12 months (25 points). IV access (20 points). Total Jain Fall Scale indicates High Risk Score (45 or more points). Fall prevention measures have been instituted. Side Rails Up X 2 Placed Close to Nursing Station Family Present and informed to notify staff if the need to leave the bedside. Assessment: 09:30 General: Appears comfortable, Behavior is calm, cooperative. Pain: Denies pain. 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 Speech is normal, Facial symmetry appears normal, Pupils are PERRLA, Reports Generalized weakness x 1-2 weeks. Pt's reports unsteady gait and frequent falls since being d/c'd from rehab (for alcoholism) . Denies blurred vision dizziness, paresthesias numbness headache. Cardiovascular: Heart tones S1 S2 present Rhythm is regular. Respiratory: Airway is patent Respiratory effort is even, unlabored, Respiratory pattern is regular, symmetrical, Breath sounds are clear bilaterally. GI: Abdomen is round non-distended, Bowel sounds present X 4 quads. Abd is soft and non tender X 4 quads. Reports tolerance of fluids, tolerance of food, Patient currently denies nausea, vomiting. : No signs and/or symptoms were reported regarding the genitourinary system. EENT: No signs and/or symptoms were reported regarding the EENT system. Derm: Skin is pink, warm \\T\\ dry. Musculoskeletal: Range of motion: intact in all extremities. 11:35 Reassessment: Patient is alert, oriented x 3, equal unlabored respirations, skin aa5 warm/dry/pink. 12:00 General: Received care of pt from AM RN. Pt is AAO x4, VSS. Pt is without complaints at 3 this time. Awaiting results for disposition. PT's spouse at bedside. No needs verbalized.. 16:00 General: See [facility] charting. kb3 17:31 General: Report called to Monet CALABRESE for pt admission. kb3 Vital Signs: 09:13 BP 93 / 66; Pulse 76; Resp 16; Temp 98.3; Pulse Ox 94% on R/A; iw 09:45 BP 108 / 73; Pulse 75; Resp 16 S; Pulse Ox 94% on R/A; aa5 14:15 BP 128 / 81; Pulse 75; Resp 18; Pulse Ox 95% ; Pain 0/10; kb3 ED Course: 08:50 Patient arrived in ED. am2 09:04 Douglas Sanabria PA is PHCP. cp 09:04 Dc Coello DO is Attending Physician. cp 09:15 Arm band placed on. iw 09:16 Triage completed. iw 09:20 Katie Scott, RN is Primary Nurse. aa5 09:30 Patient has correct armband on for positive identification. Bed in low position. Call aa5 light in reach. Side rails up X2. Adult w/ patient. 10:05 Initial lab(s) drawn, by nj, sent to lab. Inserted saline lock: 22 gauge in left aa5 antecubital area, using aseptic technique. Blood collected. IV inserted by RHODA Zepeda. 10:07 Troponin HS Sent. kc6 10:07 PT-INR Sent. kc6 10:07 NT PRO-BNP Sent. kc6 10:07 Magnesium Sent. kc6 10:07 LFT's Sent. kc6 10:07 CBC with Diff Sent. kc6 10:07 Basic Metabolic Panel Sent. kc6 10:26 XRAY Chest (1 view) In Process Unspecified. EDMS 10:33 CT Head Brain wo Cont In Process Unspecified. EDMS 12:13 Primary Nurse role handed off by Katie Scott, RN kb3 12:13 María Elena Chris, RN is Primary Nurse. kb3 12:14 Urine Microscopic Only Sent. kb3 13:20 Sushant Asif is Hospitalizing Provider. cp 14:30 No provider procedures requiring assistance completed. kb3 14:40 SARS RAPID Sent. kb3 17:33 Patient admitted, IV remains in place. kb3 Administered Medications: 10:06 Drug: NS 0.9% 500 ml Route: IV; Rate: bolus; Site: left antecubital; aa5 11:00 Follow up: IV Status: Completed infusion; IV Intake: 500ml aa5 17:11 Follow up: Response: No adverse reaction; IV Status: Completed infusion; IV Intake: kb3 500ml 17:34 Follow up: IV Status: Completed infusion; IV Intake: 500ml kb3 11:35 Drug: Thiamine 100 mg Route: IV; Rate: calculated rate; Site: left antecubital; aa5 17:11 Follow up: Response: No adverse reaction kb3 11:35 Drug: foLIC Acid 1 mg Route: IVPB; Site: left antecubital; aa5 17:11 Follow up: Response: No adverse reaction kb3 Medication: 14:30 VIS not applicable for this client. kb3 Intake: 11:00 IV: 500ml; Total: 500ml. aa5 17:11 IV: 500ml; Total: 1000ml. kb3 17:34 IV: 500ml; Total: 1500ml. kb3 Outcome: 13:21 Decision to Hospitalize by Provider. cp 17:32 Admitted to Med/surg accompanied by tech, via wheelchair, Report called to Monet CALABRESE kb3 17:32 Condition: stable 17:32 Instructed on the need for admit. 17:36 Patient left the ED. 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 Speech is normal, Facial symmetry appears normal, Pupils are PERRLA, Reports Generalized weakness x 1-2 weeks . Denies blurred vision dizziness, paresthesias numbness headache aa5
--- NOTE | 2021-12-14 13:22 | EDPHYS ---
Physician Documentation [facility] Name: Ken Sutherland Jr Age: 71 yrs Sex: Male : 1950 Arrival Date: 12/14/2021 Time: 08:50 Bed 20 Private MD: ED Physician Dc Coello HPI: 12/14 09:30 This 71 yrs old Male presents to ER via Wheelchair with complaints of Trouble Walking, cp General Weakness. 09:30 The patient presents to the emergency department with weakness of the entire body, cp generalized weakness, that is moderate, difficult walking, the patient is off balance. 09:30 Onset: The symptoms/episode began/occurred 10 day(s) ago. cp 09:30 Context: occurred while the patient was walking. Associated signs and symptoms: cp Pertinent positives: weakness, multiple falls, Pertinent negatives: altered mental status. Severity of symptoms: in the emergency department the symptoms are unchanged despite home interventions. Patient's baseline: Neuro: alert and fully oriented, Motor: no deficits, Ambulation: walks without assistance. Current symptoms: general weakness, difficulty standing and walking. Historical: - Allergies: 09:15 Sulfa (Sulfonamide Antibiotics); iw - PMHx: 09:30 Alcoholism; aa5 - Immunization history:: Adult Immunizations unknown, Client reports receiving the 2nd dose of the Covid vaccine, Last tetanus immunization: unknown. - Social history:: Smoking status: Patient denies any tobacco usage or history of. Patient uses alcohol, on a daily basis. Pt was in alcohol rehab for 9 days and left AMA 2 days ago because"they were trying to kill me. They took me off my Elavil and I couldn't sleep." Pt reports generalized symptoms of feeling unwell including headaches, abdominal pain, nausea, fatigue. When asked if he felt like these symptoms could be attributed to alcohol withdrawal, pt stated that he only drank beer and wine so he did not believe he had alcohol withdrawal but was withdrawing from Elavil. ROS: 09:35 Constitutional: Negative for body aches, chills, fever, poor PO intake. cp 09:35 Cardiovascular: Negative for chest pain, edema, palpitations. cp 09:35 Respiratory: Negative for cough, shortness of breath, wheezing. 09:35 Abdomen/GI: Negative for abdominal pain, vomiting, diarrhea, constipation, anorexia, black/tarry stool, rectal bleeding. 09:35 Eyes: Negative for injury, pain, redness, and discharge. cp 09:35 Back: Negative for pain at rest, pain with movement. 09:35 MS/extremity: Negative for injury or acute deformity, decreased range of motion. 09:35 Neuro: Positive for gait disturbance, weakness, Negative for altered mental status, dizziness, headache, numbness, syncope. 09:35 All other systems are negative. Exam: 09:40 Constitutional: The patient appears in no acute distress, alert, awake, cp non-diaphoretic, non-toxic, well developed, well nourished. 09:40 Head/Face: Normocephalic, atraumatic. cp 09:40 Eyes: Periorbital structures: appear normal, Pupils: equal, round, and reactive to light and accomodation, Extraocular movements: intact throughout, Conjunctiva: normal, no exudate, no injection, Sclera: no appreciated abnormality, Lids and lashes: appear normal, bilaterally. 09:40 ENT: External ear(s): are unremarkable, Ear canal(s): are normal, clear, TM's: dullness, bilaterally, Nose: is normal, Mouth: Lips: moist, Oral mucosa: pink and intact, moist, Posterior pharynx: Airway: no evidence of obstruction, patent. 09:40 Neck: ROM/movement: is normal, is supple, without pain, no range of motions limitations, no nuchal rigidity. 09:40 Chest/axilla: Inspection: normal, Palpation: is normal, no crepitus, no tenderness. 09:40 Cardiovascular: Rate: normal, Rhythm: regular, Edema: is not appreciated, JVD: is not appreciated. 09:40 Respiratory: the patient does not display signs of respiratory distress, Respirations: normal, labored breathing, is not present, Breath sounds: are clear throughout, no decreased breath sounds, no stridor, no wheezing. 09:40 Abdomen/GI: Inspection: abdomen appears normal, Bowel sounds: active, all quadrants, Palpation: abdomen is soft and non-tender, in all quadrants. 09:40 Back: pain, is absent, ROM is normal. 09:40 Musculoskeletal/extremity: Extremities: all appear grossly normal, with no appreciated pain with palpation. 09:40 Neuro: Orientation: to person, place \\T\\ time. Mentation: able to follow commands, slow to respond, Motor: moves all fours, general weakness with no focal deficits, Sensation: no obvious gross deficits, Gait: is unsteady, needs assistance, Abnormal movements: intention tremor, located in the right hand and left hand. 10:07 ECG was reviewed by the Attending Physician. cp Vital Signs: 09:13 BP 93 / 66; Pulse 76; Resp 16; Temp 98.3; Pulse Ox 94% on R/A; iw 09:45 BP 108 / 73; Pulse 75; Resp 16 S; Pulse Ox 94% on R/A; aa5 14:15 BP 128 / 81; Pulse 75; Resp 18; Pulse Ox 95% ; Pain 0/10; kb3 MDM: 09:19 Patient medically screened. cp 11:55 Physician consultation: Sushant Asif was called at 11:55, was contacted at 11:55, cp regarding patient's condition, will review chart. 12:00 Data reviewed: vital signs, nurses notes, lab test result(s), EKG, radiologic studies, cp CT scan, plain films. 12:00 Test interpretation: by ED physician or midlevel provider: ECG, plain radiologic cp studies. Counseling: I had a detailed discussion with the patient and/or guardian regarding: the historical points, exam findings, and any diagnostic results supporting the discharge/admit diagnosis, lab results, radiology results, the need for further work-up and treatment in the hospital. 12/14 09:26 Order name: Basic Metabolic Panel; Complete Time: 10:37 cp 12/14 10:38 Interpretation: Normal except: NA 133; GLUC 131; CA 8.1. cp 12/14 09:26 Order name: CBC with Diff; Complete Time: 10:37 cp 12/14 10:38 Interpretation: Normal except: RBC 4.17; HGB 12.8; HCT 37.2; MCV 89.3; RDW 15.3; MPV cp 6.3. 12/14 09:26 Order name: LFT's; Complete Time: 10:37 cp 12/14 09:26 Order name: Magnesium; Complete Time: 10:37 cp 12/14 09:26 Order name: NT PRO-BNP; Complete Time: 10:37 cp 12/14 09:26 Order name: PT-INR; Complete Time: 10:37 cp 12/14 09:26 Order name: Troponin HS; Complete Time: 10:37 cp 12/14 09:26 Order name: XRAY Chest (1 view); Complete Time: 10:46 cp 12/14 09:34 Order name: CT Head Brain wo Cont; Complete Time: 10:46 cp 12/14 10:47 Interpretation: Report reviewed. cp 12/14 09:34 Order name: Urine Microscopic Only cp 12/14 12:12 Order name: Urine Dipstick-Ancillary EDMS 12/14 13:28 Order name: SARS RAPID em1 12/14 14:53 Order name: SARS-COV-2 Antigen Rapid EDMS 12/14 09:26 Order name: EKG; Complete Time: 09:27 cp 12/14 09:26 Order name: Cardiac monitoring; Complete Time: 11:42 cp 12/14 09:26 Order name: EKG - Nurse/Tech; Complete Time: 10:06 cp 12/14 09:26 Order name: IV Saline Lock; Complete Time: 10:06 cp 12/14 09:26 Order name: Labs collected and sent; Complete Time: 10:06 cp 12/14 09:26 Order name: O2 Per Protocol; Complete Time: 10:06 cp 12/14 09:26 Order name: O2 Sat Monitoring; Complete Time: 10:06 cp 12/14 09:34 Order name: Urine Dipstick-Ancillary (obtain specimen); Complete Time: 12:14 cp EC:07 Rate is 69 beats/min. Rhythm is regular. LA interval is normal. QRS interval is cp prolonged at 104 msec. QT interval is normal. T waves are Inverted in lead aVR. Interpreted by me. Reviewed by me. Administered Medications: 10:06 Drug: NS 0.9% 500 ml Route: IV; Rate: bolus; Site: left antecubital; aa5 11:00 Follow up: IV Status: Completed infusion; IV Intake: 500ml aa5 17:11 Follow up: Response: No adverse reaction; IV Status: Completed infusion; IV Intake: kb3 500ml 17:34 Follow up: IV Status: Completed infusion; IV Intake: 500ml kb3 11:35 Drug: Thiamine 100 mg Route: IV; Rate: calculated rate; Site: left antecubital; aa5 17:11 Follow up: Response: No adverse reaction kb3 11:35 Drug: foLIC Acid 1 mg Route: IVPB; Site: left antecubital; aa5 17:11 Follow up: Response: No adverse reaction kb3 Disposition: 12/15 11:14 Co-signature as Attending Physician, Dc Coello DO. I agree with the assessment and ms3 plan of care. Disposition Summary: 12/14/21 13:21 Hospitalization Ordered Hospitalization Status: Observation cp Provider: Sushant Asif cp Location: Telemetry/MedSurg (observation) cp Condition: Stable cp Problem: new cp Symptoms: are unchanged cp Bed/Room Type: Standard cp Room Assignment: 403(12/14/21 16:24) dw Diagnosis - Unspecified abnormalities of gait and mobility cp - Weakness cp - Repeated falls cp Forms: - Medication Reconciliation Form cp - SBAR form cp Signatures: Dispatcher [employer] Melinda Patel RN RN dw Williams, Irene, RN RN iw Calderon, Audri RN RN aa5 Douglas Sanabria PA PA cp Dc Coello DO DO ms3 María Elena Chris RN RN kb3 Corrections: (The following items were deleted from the chart) 12/14 16:24 13:21 cp dw
--- NOTE | 2021-12-14 14:19 | P.HP ---
Certification for Inpatient Patient admitted to: Observation With expected LOS: <2 Midnights Practitioner: I am a practitioner with admitting privileges, knowledge of patient current condition, hospital course, and medical plan of care. Services: Services provided to patient in accordance with Admission requirements found in Title 42 Section 412.3 of the Code of Federal Regulations Patient History Date of Service: 12/14/21 Reason for admission: Unsteady gait History of Present Illness: 71-year-old gentleman with a history of hypertension, anxiety disorder, chronic alcoholism presented to the emergency department with a complaint of unsteady gait and multiple falls at home. Patient was in an alcohol rehab program for about 1 week. He stated he felt sick and neglected, some of his medications were stopped, he did not sleep for days so he checked out of the program. Patient was at home for 5 days but over the past couple of days has been falling frequently, complaining of dizziness, and weakness in both legs. Patient denied any visual disturbance or hearing loss. He denied any headache. He used to drink beer every day, at least 2 bottles. He denies any admission for alcohol withdrawal symptoms. He was in rehab because his drinking was causing social issues. Work-up in the emergency department has been unremarkable. CT head shows no acute changes. Blood work unremarkable except mild hyponatremia. Case discussed with neurology-Dr. Panda. Patient is hospitalized for further evaluation. - Past Medical/Surgical History -: Hypertension -: Anxiety disorder -: Chronic alcoholism - Family History Family History: Reviewed- Non-Contributory - Social History Smoking Status: Former smoker Alcohol use: Yes CD- Drugs: No Place of Residence: Home Review of Systems Other: Patient denied any fever or chills or shortness of breath or chest pain or palpitation. endorsed he has been having tremors. Except as documented, all other systems reviewed and negative. Physical Examination - Physical Exam General: Alert, In no apparent distress, Oriented x3 HEENT: Atraumatic, PERRLA, Mucous membr. moist/pink, EOMI, Sclerae nonicteric Neck: Supple, JVD not distended Respiratory: Clear to auscultation bilaterally, Normal air movement Cardiovascular: No edema, Regular rate/rhythm, Normal S1 S2 Capillary refill: <2 Seconds Gastrointestinal: Normal bowel sounds, Soft and benign, Non-distended, No tenderness Musculoskeletal: No swelling, No tenderness Integumentary: No rashes, No erythema, No cyanosis Neurological: Normal speech, Normal strength at 5/5 x4 extr, Cranial nerves 3-12 intact Lymphatics: No axilla or inguinal lymphadenopathy - Studies Laboratory Data (last 24 hrs) 12/14/21 09:57: PT 11.6, INR 1.05 12/14/21 09:57: WBC 6.50, Hgb 12.8 L, Hct 37.2 L, Plt Count 236 12/14/21 09:57: Sodium 133 L, Potassium 3.9, BUN 12, Creatinine 0.77, Glucose 131 H, Magnesium 2.4, Total Bilirubin 0.3, AST 8 L, ALT 17, Alkaline Phosphatase 68 Assessment and Plan - Problems (Diagnosis) (1) Unsteady gait Current Visit: Yes Status: Acute (2) Chronic alcoholism Current Visit: Yes Status: Acute (3) Hypertension Current Visit: Yes Status: Acute (4) Anxiety disorder Current Visit: Yes Status: Acute - Plan Place patient under observation. Need to rule out acute CVA. Obtain MRI of the brain. Start IV thiamine, folic acid. Check vitamin B12 level. Vitamin B12 replacement. Aspirin. Neurology consult. Patient blood pressure was borderline low in the ED. Hold all antihypertensives. Monitor and optimize electrolytes as needed. PT consult - Advance Directives Does patient have a Living Will: No Does patient have a Durable POA for Healthcare: No
[2021-12-14 14:52] LABS: SARS-CoV-2 Antigen Rapid Res Negative (Negative)
[2021-12-14 17:09] VITALS: BMI 29.7
[2021-12-14] MEDS ORDERED: ONDANSETRON 4 MG/2 ML VIAL IV PRN (17:32)
[2021-12-14] MEDS: ENOXAPARIN 40 MG/0.4 ML SQ SCH (18:03)
[2021-12-14] MEDS: NA CHLORIDE 0.9% 1,000 ML IV SCH (18:08)
[2021-12-14] MEDS ORDERED: AMITRIPTYLINE 50 MG TAB PO SCH (21:00)
[2021-12-14] MEDS ORDERED: HOME MED 1 EA UNK (Amitriptyline Hcl [Amitriptyline Hcl] 100 MG Tablet) PO SCH (21:00)
[2021-12-14] MEDS: BUPRENORPHINE HCL 2 MG SL SCH (21:00)
[2021-12-14] MEDS ORDERED: TRAZODONE 150 MG TAB PO SCH (21:00)
[2021-12-14 23:49] LABS: Urine Bilirubin Negative (Negative); Urine Blood Negative (Negative); Urine Clarity Clear (Clear); Urine Color Yellow (Yellow); Urine Glucose Negative (Negative); Urine Protein Negative (Negative); Urine Urobilinogen 0.2 mg/dL (0.2-1.0)
[2021-12-15] MEDS: NA CHLORIDE 0.9% 1,000 ML IV SCH (03:32)
[2021-12-15 06:28] LABS: Absolute Lymphocytes (CBC) 1.9 K/uL (0.7-4.9); Hematocrit 32.1 % (39.6-49.0); MPV 6.2 fL (7.6-11.3); RBC Red Blood Cell Count 3.65 M/uL (4.33-5.43)
[2021-12-15 06:53] LABS: Albumin 2.7 g/dL (3.4-5.0); Bilirubin Total 0.2 mg/dL (0.2-1.0); Magnesium 2.2 mg/dL (1.8-2.4); Phosphorus 3.2 mg/dL (2.5-4.9); Potassium 3.8 mmol/L (3.5-5.1); Protein, Total 5.9 g/dL (6.4-8.2); Thyroid Stimulating Hormone 1.81 uIU/mL (0.360-3.740)
[2021-12-15] MEDS: ENOXAPARIN 40 MG/0.4 ML SQ SCH (08:18)
[2021-12-15] MEDS: BUPRENORPHINE HCL 2 MG SL SCH (08:18)
[2021-12-15] MEDS ORDERED: TAMSULOSIN 0.4 MG SR CAP PO SCH (09:00)
[2021-12-15] MEDS ORDERED: FOLIC ACID 1 MG TABLET PO SCH (09:00)
[2021-12-15] MEDS ORDERED: POTASSIUM CL SA 10 MEQ TAB PO ONE (09:00)
[2021-12-15] MEDS ORDERED: DULOXETINE 30 MG CAP PO SCH (09:00)
[2021-12-15] MEDS ORDERED: THIAMINE 200 MG/2 ML INJ IVP SCH (09:00)
[2021-12-15] MEDS ORDERED: CYANOCOBALAMIN 1,000 MCG TAB PO SCH (09:00)
[2021-12-15 10:46] VITALS: O2SAT 97
--- NOTE | 2021-12-15 14:16 | RAD REPORT ---
EXAM DESCRIPTION: MRI - Brain W/Wo Cont - 12/15/2021 9:35 am CLINICAL HISTORY: Ataxia COMPARISON: head CT December 14, 2021 and 2019 TECHNIQUE: Axial, sagittal, and coronal magnetic images of the brain were obtained. 18 cc MultiHance administered intravenously FINDINGS: Mild signal within periventricular, deep and subcortical white matter probably ischemic c hanges secondary to small vessel disease Diffusion-weighted/ ADC mapping sequences do not demonstrate evidence of an acute infarction. No abnormal enhancement within the brain is seen. An extra-axial fluid collection is not noted. Moderate cerebral atrophy has progressed from 2019. Prominence of the ventricles presumably related t o the cerebral atrophy Fluid within the sinuses/mastoids is not seen IMPRESSION: Progression in moderate cerebral atrophy since 2019. Prominence of ventricles most likely related to the cerebral atrophy. Normal pressure hydrocephalus i s considered less likely and should be correlated clinically
--- NOTE | 2021-12-15 15:06 | P.DS ---
Admission Date: 12/14/21 Discharge Date: 12/15/21 Disposition: ROUTINE DISCHARGE Discharge Condition: FAIR Reason for Admission: Unsteady gait - Problems (1) Unsteady gait Current Visit: Yes Status: Acute (2) Chronic alcoholism Current Visit: Yes Status: Acute (3) Hypertension Current Visit: Yes Status: Acute (4) Anxiety disorder Current Visit: Yes Status: Acute Brief History of Present Illness: 71-year-old gentleman with a history of hypertension, anxiety disorder, chronic alcoholism presented to the emergency department with a complaint of unsteady gait and multiple falls at home. Patient was in an alcohol rehab program for about 1 week. He stated he felt sick and neglected, some of his medications were stopped, he did not sleep for days so he checked out of the program. Patient was at home for 5 days but over the past couple of days has been falling frequently, complaining of dizziness, and weakness in both legs. Patient denied any visual disturbance or hearing loss. He denied any headache. He used to drink beer every day, at least 2 bottles. He denies any admission for alcohol withdrawal symptoms. He was in rehab because his drinking was causing social issues. Work-up in the emergency department has been unremarkable. CT head shows no acute changes. Blood work unremarkable except mild hyponatremia. Case discussed with neurology-Dr. Panda. Patient was hospitalized for further evaluation. Hospital Course: Patient placed under observation on the medical floor. He was started on vitamin supplementation including B12 and thiamine. MRI of the brain with and without contrast done did not show any acute disease. Patient had less tremors, he was able to eat unassisted. He was seen by PT and he was able to ambulate without assistance however his gait was ataxic. Case discussed with neuro Dr. Panda. Patient's symptoms could be related to chronic alcoholism. He is prescribed vitamin B12 and thiamine and folic acid. Fall precautions advised. PT recommend patient to use assistive device as needed to prevent falls. Vital Signs/Physical Exam: Temp Pulse Resp BP Pulse Ox 97.1 F 70 18 123/77 95 12/15/21 11:37 12/15/21 11:37 12/15/21 11:37 12/15/21 11:37 12/15/21 11:37 General: Alert, In no apparent distress HEENT: Mucous membr. moist/pink Neck: JVD not distended Respiratory: Clear to auscultation bilaterally, Normal air movement Cardiovascular: No edema, Regular rate/rhythm, Normal S1 S2 Gastrointestinal: Soft and benign, Non-distended, No tenderness Musculoskeletal: No swelling, No tenderness Integumentary: No rashes, No cyanosis Neurological: Normal strength at 5/5 x4 extr, Other (No tremors) Laboratory Data at Discharge: WBC 5.00 K/uL (4.3-10.9) D 12/15/21 06:08 Hgb 11.3 g/dL (13.6-17.9) L 12/15/21 06:08 Hct 32.1 % (39.6-49.0) L 12/15/21 06:08 Plt Count 213 K/uL (152-406) 12/15/21 06:08 PT 11.6 SECONDS (9.5-12.5) 12/14/21 09:57 INR 1.05 12/14/21 09:57 Sodium 138 mmol/L (136-145) 12/15/21 06:08 Potassium 3.8 mmol/L (3.5-5.1) 12/15/21 06:08 BUN 9 mg/dL (7-18) 12/15/21 06:08 Creatinine 0.61 mg/dL (0.55-1.3) 12/15/21 06:08 Glucose 104 mg/dL (74-106) 12/15/21 06:08 Phosphorus 3.2 mg/dL (2.5-4.9) 12/15/21 06:08 Magnesium 2.2 mg/dL (1.8-2.4) 12/15/21 06:08 Total Bilirubin 0.2 mg/dL (0.2-1.0) 12/15/21 06:08 AST 7 U/L (15-37) L 12/15/21 06:08 ALT 15 U/L (12-78) 12/15/21 06:08 Alkaline Phosphatase 61 U/L (45-117) 12/15/21 06:08 Triglycerides 89 mg/dL (<150) 12/15/21 06:08 Cholesterol 146 mg/dL (<200) 12/15/21 06:08 HDL Cholesterol 36 mg/dL (40-60) L 12/15/21 06:08 Cholesterol/HDL Ratio 4.06 12/15/21 06:08 Home Medications: Amitriptyline HCl 1 tab PO BEDTIME 12/14/21 Duloxetine [Cymbalta *] 60 mg PO DAILY 12/14/21 Tamsulosin HCl 1 cap PO DAILY 12/14/21 Trazodone [Desyrel*] 1 tab PO BEDTIME 12/14/21 buprenorphine HCL [Buprenorphine HCl] 1 tab SL Q12HR 12/14/21 Bisacodyl [Dulcolax] 10 mg RC DAILY #5 supp 12/15/21 Cyanocobalamin [Vitamin B-12*] 1,000 mcg PO DAILY #30 tab 12/15/21 Folic Acid 1 mg PO DAILY #30 tab 12/15/21 Polyethylene Glycol 3350 [Miralax] 17 gm PO DAILY #30 12/15/21 Thiamine HCl 100 mg PO DAILY #30 tab 12/15/21 New Medications: Bisacodyl [Dulcolax] 10 mg RC DAILY #5 supp Folic Acid 1 mg PO DAILY #30 tab Polyethylene Glycol 3350 [Miralax] 17 gm PO DAILY #30 Thiamine HCl 100 mg PO DAILY #30 tab Cyanocobalamin [Vitamin B-12*] 1,000 mcg PO DAILY #30 tab Diet: AHA Activity: Fall precautions Followup: Kamlesh Hennessy MD [Primary Care Provider] - 1-2 Weeks
[2021-12-15 15:31] VITALS: BP 104/69; TEMP 98.3
--- NOTE | 2021-12-16 15:24 | EKG ---
Test Date: 2021-12-14 Test Time: 10:00:25 Cosmetic Maker: JOSE JUAN MEASUREMENT RESULTS: Intervals: Rate: 69 DC: 178 QRSD: 104 QT: 410 QTc: 439 [place]: P: 44 DC: 178 QRS: 7 T: 34 INTERPRETIVE STATEMENTS: Normal sinus rhythm with sinus arrhythmia Normal ECG Compared to ECG 07/01/2019 15:56:45 No significant changes Electronically Signed On 12-16-21 15:22:54 CDT by Hiram Suggs
== END 2021-12-15 16:55 | disposition home or self-care (01) ==
LOC: ER 08:48 → ERHOLD 12:55 → 4TH 17:24
PROVIDERS: ADMIT Internal Medicine; ATTEND Internal Medicine
DX: R26.81 Unsteadiness on feet (principal); R42 Dizziness and giddiness; R53.1 Weakness; R27.0 Ataxia, unspecified; R25.1 Tremor, unspecified; F41.9 Anxiety disorder, unspecified; I10 Essential (primary) hypertension; E87.1 Hypo-osmolality and hyponatremia; F10.20 Alcohol dependence, uncomplicated; R29.6 Repeated falls; Z87.891 Personal history of nicotine dependence; Z88.2 Allergy status to sulfonamides; Z20.822 Contact with and (suspected) exposure to COVID-19
CPT/HCPCS: 96361; 93005; 85025 ×2; 80048; 36415; 83735 ×2; 84100; 85610; 80061; 80076; 84443; 84484; 84439; 80053; 83880; 70450; 71045; 70553; 97161; 94760 ×2; 96375; 96374; 99285; 87811; A9577; J3411 ×2; J1650 ×2; J7040; J7030; G0378 ×3; 81003; 81015

== ENCOUNTER 2022-03-20 21:40 | Inpatient (IN) | payer OTHER ==
--- OUTSIDE RECORDS SUMMARY | 2022-03-20 21:45 | XMS REPORT | Continuity of Care Document ---
:1950 Author Organization [facility] t Address 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, syndrome, 00:00: Hosp caesar right right 00 l S/P total S/P total Disease Active 2019-04 Met hodi knee knee 05-16 st arthroplas arthroplas 00:00: Ho spita ty, right ty, right 00 l BPH BPH Disease Active Methodi (benign (benign 10-12 prostatic prostatic 00:00: Hosp caesar hyperplasi hyperplasi 00 l a) a) BPH with BPH with Disease Active Metho di obstructio obstructio 10-12 st n/lower n/lower 00:00: Hospita urinary urinary 00 l tract tract symptoms symptoms Urinary Urinary Disease Active Methodi tract tract 10-12 infection infection 00:00: Hosp caesar associated associated 00 l with with indwelling indwelling urethral urethral catheter catheter Urinary Urinary Disease Active Overview: Meth ilir retention retention 6-11 Formattin s t 00:00: g of this Hospita 00 note l might be different from the original. Added automatic ally from request for surgery [id number] BPH with BPH with Disease Active Overview: Me thodi obstructio obstructio 6-[address] n/lower n/lower 00:00: g of this Hospi ta urinary urinary 00 note l tract tract might be symptoms symptoms different from the original. Added automatic ally from request for surgery [id number] Essential Essential Disease Active Met hodi hypertensi hypertensi 5-06 st on on 00:00: Hospita 00 l LVH (left LVH (left Disease Active Met hodi ventricula ventricula 5-06 st r r 00:00: Hospita hypertroph hypertroph 00 l y) y) Diastolic Diastolic Disease Active Met hodi CHF, CHF, 506 st chronic chronic 00:00: Hospita 00 l Gastroesop Gastroesop Disease Active M ethodi hageal hageal 4-17 st reflux reflux 00:00: Hospita disease disease 00 l without without esophagiti esophagiti s s Other Other Disease Active Methodi pulmonary pulmonary 1 st embolism embolism 00:00: Hospit a without without 00 l acute cor acute cor pulmonale pulmonale Indwelling Indwelling Disease Active 2019-0 M ethodi urethral urethral 05-22 catheter catheter 00:00: Hospit a present present 00 l Current Current Disease Active Methodi 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 00:00: Hosp caesar anticoagul anticoagul 00 l ation ation Preoperati Preoperati Disease Active 2020-0 M ethodi ve ve 05-22 cardiovasc cardiovasc 00:00: Ho spita ular ular 00 l examinatio examinatio n n History of History of Problem Resolve [facility] [...] 00:00: Antibiot 00 ics) Sulfa DA Active [place] [facility] (Sulfona 1- Clear mide 00:00: [place] Antibiot 00 Regiona ics) [facility] Sulfa DA Active [place] [facility] (Sulfona 1 Clear mide 00:00: [place] Antibiot Regiona ics) [facility] SULFA DA Active [place] [facility] DRUGS 1 Clear 00:00: [place] 00 [facility] Latex Propensi Active Rash 2018-04 Methodi ty to 06-04 st adverse 00:00: Hospita reaction 00 l s to drug Sulfaben Propensi Active Rash 2018-04 Method i zamide ty to 2-13 st adverse 00:00: Hospita reaction 00 l s to drug SULFA DA Active [facility] DRUGS 4-25 [place] [facility] sulfa Allergy Active [facility] to drug Physici (finding ans ) Family History Family Member Diagnosis Comments Start Date Stop Date Source Natural father [facility] Natural mother [facility] Natural sister [facility] Father Family history of [facility] chronic obstructive pulmonary disease Social History Social Habit Start Date Stop Date Quantity Comments Source History of Occasional tobacco Method ist tobacco use smoker Hospital Alcohol intake 2020-07-20 2020-07-20 Current drinker of Al [facility] 00:00:00 00:00:00 alcohol (finding) Hospita l Tobacco Comment 2019-10-13 2019-10-13 30 years , using Met hodist 00:00:00 00:00:00 Vape once or twice Hospit al a day, 2-4 sticks a day Tobacco use and 2019-10-13 2019-10-13 [facility] tobacco Hospital Alcohol Comment 2019-10-08 2019-10-08 pint of wine/day Met hodist 00:00:00 00:00:00 Hospital Sex Assigned At [birth year] [facility] 00:00:[facility] 00:[facility]:00 Hospital Smoking Status Start Date Stop Date Source Smokes tobacco daily (finding) [facility] Occasional tobacco smoker 2019-10-13 00:00:00 [facility] Medications Ordered Filled Start Stop Current Ordering Indication Dosage Frequency Signature Comments Components Source Medication Medication Date Date Medication? Clinician (SIG) Name Name tamsulosin Yes .4mg QD Take 1 Metho di (FLOMAX) 6-[address] 0.4 mg 00:00: (0.4 mg Hospita capsule 00 total) by l mouth nightly. omeprazole 2019-04 Yes Once Daily M ethodi (PriLOSEC) 1-25 st 20 MG 10:37: Hospita capsule 35 l buprenorphi 2019-04 Yes DIS 1 T Met hodi ne HCL 0-25 UNT Q [address] (SUBUTEX) 2 00:00: Hospit a mg tablet, 00 l sublingual amoxicillin 2020-0 Yes TAKE 1 Meth ilir (AMOXIL) 9-[address] 500 MG 00:00: MOUTH Hospita capsule 00 EVERY 6 l HOURS UNTIL ALL ARE TAKEN Myrbetriq 2020-0 Yes TAKE 1 Method i 25 mg 8-31 TABLET (25 st tablet 00:00: MG TOTAL) Hospit a extended 00 BY MOUTH l release 24 NIGHTLY hr Celecoxib Celecoxib 2020-0 Yes KAYY 1 QD TAKE 1 UT 100 MG Oral 100 MG Oral 8-12 PARSLEY CAPSULE Physici Capsule Capsule 00:00: M.D. DAILY ans 00 DULoxetine 2020-0 Yes 60mg QD Take 60 mg M ethodi (CYMBALTA) 6-[address] 60 MG 12:12: daily. Hospita capsule 09 l omeprazole 2020-0 Yes 20mg QD Take 20 mg M ethodi (PriLOSEC) 6-[address] 20 MG 12:12: daily. Hospita capsule 09 l divalproex 2020-0 Yes 250mg Q.5D Take 250 Me thodi (DEPAKOTE 6-[address] ER) 250 MG 12:12: mouth 2 Hosp caesar 24 hr 09 (two) l tablet times a day. acetaminoph 2020-0 Yes 1000mg Q.[id number] Take 1,000 Methodi en 6-[id number] (TYLENOL) 12:12: 3D mouth 3 Hospi ta 500 MG 09 (three) l tablet times a day. diphenhydrA 2020-0 Yes 25mg Q.56103124 Take 25 mg Methodi MINE 6-24 [id number] mouth [address] (BENADRYL) 12:12: 3D (three) Hosp caesar 25 mg 09 times a l tablet day. For itching magnesium 2020-0 Yes QD Take by Metho di hydroxide 6-[address] 400 mg/5 mL 12:12: daily. Hosp caesar suspension 09 l amitriptyli 2019-0 Yes 100mg QD Take 100 M ethodi ne (ELAVIL) 9-[address] 100 MG 00:00: mouth Hospita tablet 00 nightly. l gabapentin 2019-0 Yes TAKE 1 Metho di (NEURONTIN) 9-[address] 600 mg 00:00: MOUTH 3 Hospita tablet 00 TIMES A l DAY AND 1 TAB AT BEDTIME Cymbalta 60 Cymbalta 60 Yes U T [...] Extended Release 24 Release 24 Hour Hour Immunizations Ordered Immunization Filled Immunization Date Status Commen ts Source Name Name Pneumococcal 2019-12-23 Completed [facility] Conjugate 13-Valent 00:00:00 Hospi sylvain Vital Signs Vital Name Observation Time Observation [...] Post Op Promis 29 Survey 2019-11-26 00:00:00 [facility] [QL] C-REACTIVE PROTEIN 2019-10-28 00:00:00 [facility] [QL] SED RATE BY MODIFIED 2019-10-28 00:00:[address] [facility] [address] Spine lumbar wo contrast 2018-03-17 00:00:00 [facility] [id number] MRI Spine lumbar wo contrast 2018-02-21 00:00:00 [facility] [id number] History of Back surgery [facility] of Back Surgery [facility] History of Arthroscopy Knee [facility] History of Spinal cord [facility] stimulation History of Prostate Surgery [facility] History of Total Knee [facility] ans Replacement Right Plan of Care Planned Activity Planned Date Details Comments Source Future Scheduled 2022-02-22 HEPATITIS B VACCINES Met [facility] Test 18:52:40 (1 of 3 - 3-dose series) [code = HEPATITIS B VACCINES (1 of 3 - 3-dose series)] Future Scheduled 2022-02-22 Hepatitis C screening [facility] Test 18:52:40 (procedure) [code = 283584065] Future Scheduled 2022-02-22 COLONOSCOPY SCREENING [facility] Test 18:52:40 [code = COLONOSCOPY SCREENING] Future Scheduled 2022-02-22 SHINGLES VACCINES (1 [facility] Test 18:52:40 of 2) [code = SHINGLES VACCINES (1 of 2)] Future Scheduled 2022-02-22 COVID-19 VACCINE (3 - [facility] Test 18:52:40 Booster for Pfizer series) [code = COVID-19 VACCINE (3 - Booster for Pfizer series)] Future Scheduled 2022-02-22 65+ PNEUMOCOCCAL [facility] Test 18:52:40 VACCINE (2 - PPSV23 if available, else PCV20) [code = 65+ PNEUMOCOCCAL VACCINE (2 - PPSV23 if available, else PCV20)] Future Scheduled 2022-02-22 INFLUENZA VACCINE [facility] Test 18:52:40 [code = INFLUENZA VACCINE] Encounters Start End Encounter Admission Attending Care Care Encounter Source Date/Time Date/Time Type Type Clinicians Facility Department ID 2019-11-11 Outpatient ANTOINETTE GOMEZ [facility] [id number] M H 10:53:32 KAYY [facility] 2019-04-22 Inpatient HCAPM KARI [id number] [facility] 15:04:00 [id number] [facility] 2018-12-24 Inpatient U [facility] [id number] [facility] 15:06:00 2022-03-23 2022-03-23 Outpatient SCARLETT PANTOJA [id number] [place] 13:30:00 13:30:00 18 eli Kirk 2021-12-20 2021-12-20 Outpatient SCARLETT PANTOJA [id number] [place] 14:00:00 14:00:00 17 eli Kirk 2021-12-02 2021-12-02 Emergency [facility] [id number] [facility] 13:11:00 13:11:00 14 2021-12-02 2021-12-02 Emergency Emergency Guirges, [facility] [id number] [facility] 13:11:00 13:11:00 Hugo 14 2021-11-07 2021-11-07 Outpatient MHIE MHIE [id number] [place] 13:00:00 13:00:00 16 eli Kirk 2021-05-09 2021-05-09 Outpatient MHIE MHIE [id number] [place] 13:30:00 13:30:00 15 eli Kirk 2021-01-10 2021-01-10 Outpatient MHIE MHIE [id number] [place] 13:15:00 13:15:00 14 eli Kirk 2020-10-10 2020-10-10 Outpatient MHIE MHIE [id number] [place] 11:45:00 11:45:00 13 eli Kirk 2020-10-05 2020-10-05 Outpatient MHIE MHIE [id number] [place] 13:00:00 13:00:00 12 eli Kirk 2020-10-03 2020-10-03 Outpatient DIANA [facility] [id number] [place] 00:00:00 00:00:00 [address]NESTO [address] 2020-09-23 2020-09-23 Outpatient MHIE MHIE [id number] [place] 11:15:00 11:15:00 11 eli Kirk 2020-09-21 2020-09-21 Outpatient MHIE MHIE [id number] [place] 13:45:00 13:45:00 10 eli Kirk 2020-07-20 2020-07-20 Outpatient PATRICIA [facility] [id number] [place] 00:00:00 00:00:00 KAYY [address] 2020-07-20 2020-07-20 Outpatient PATRICIA [facility] [id number] [place] 00:00:00 00:00:00 KAYY [address] 2020-07-19 2020-07-19 Outpatient KATLIN [facility] [id number] [address] [place] [address] 00:00:00 00:00:00 SUNEESH [address] 2020-07-19 2020-07-19 Outpatient DALAL, [facility] [id number] [place] 00:00:00 00:00:00 SUNEESH [address] 2020-07-19 2020-07-19 Outpatient DALAL, [facility] [id number] [place] 00:00:00 00:00:00 SUNEESH [address] 2020-06-21 2020-06-21 Outpatient MHIE MHIE [id number] [place] 13:45:00 13:45:00 09 l Reagan 2020-06-15 2020-06-15 Outpatient MHIE MHIE [id number] [place] 11:30:00 11:30:00 08 l Reagan 2020-06-06 2020-06-06 Outpatient [facility] [id number] [place] 00:00:00 00:00:[address] 2020-06-06 2020-06-06 Outpatient [facility] [id number] [place] 00:00:00 00:00:[address] 2020-05-03 2020-05-03 Outpatient MHIE MHIE [id number] [place] 11:00:00 11:00:00 07 l Reagan 2020-05-02 2020-05-02 Outpatient [facility] [id number] [place] 00:00:00 00:00:[address] 2020-04-26 2020-04-26 Outpatient SRIMAGALISHEN, [facility] [id number] [place] 00:00:00 00:00:00 ERNESTO [address] 2020-04-21 2020-04-21 Outpatient PATRICIA, [facility] [id number] [place] 00:00:00 00:00:00 KAYY [address] 2020-04-21 2020-04-21 Outpatient PATRICIA, [facility] [id number] [place] 00:00:00 00:00:00 KAYY [address] 2020-04-21 2020-04-21 Outpatient PATRICIA, [facility] [id number] [place] 00:00:00 00:00:00 KAYY [address] 2020-04-21 2020-04-21 Outpatient PATRICIA, [facility] [id number] [place] 00:00:00 00:00:00 KAYY [address] 2020-03-16 2020-03-16 Outpatient PATRICIA, [facility] [id number] [place] 00:00:00 00:00:00 KAYY [address] 2020-03-16 2020-03-16 Outpatient PATRICIA, [facility] [id number] [place] 00:00:00 00:00:00 KAYY [address] 2020-01-20 2020-01-20 Outpatient DIANA, [facility] [id number] [place] 00:00:00 00:00:00 ERNESTO [address] 2019-12-31 2019-12-31 Outpatient MHIE MHIE [id number] [place] 10:45:00 10:45:00 06 l Reagan 2019-12-23 2019-12-23 Outpatient DALAL, [facility] [id number] [place] 00:00:00 00:00:00 SUNEESH [address] 2019-12-16 2019-12-16 Ab GOMEZ [facility] Orthopedics [id number] [place] 13:00:00 13:00:00 t; Grace SULTANA - Sugar Ph Leticia Shetty 1 laure SULTANA M.D. 2019-12-08 2019-12-08 Outpatient [facility] [id number] [place] 00:00:00 00:00:[address] 2019-12-04 2019-12-04 Outpatient MHIE MHIE [id number] [place] 13:00:00 13:00:00 05 l Reagan 2019-12-02 2019-12-02 Appointjessica GOMEZ [facility] Orthopedics [id number] [place] 15:00:00 15:00:00 t; Grace SULTANA - Sugar Ph Leticia Shetty 1 laure SULTANA M.D. 2019-11-27 2019-11-27 Outpatient DIANA, [facility] [id number] [place] 00:00:00 00:00:00 ERNESTO [address] 2019-11-17 2019-11-17 Ab GOMEZ [facility] [id number] [place] 13:00:00 13:00:00 t; Grace SULTANA Ph ysici laure GOMEZ M.D. 2019-10-28 2019-10-28 [facility] [id number] [place] 13:30:00 13:30:00 shavonne SULTANA M.D. [facility] laure SULTANA M.D. 2019-10-27 2019-10-27 Outpatient [facility] [id number] [place] 00:00:00 00:00:[address] 2019-10-19 2019-10-19 Outpatient SRIKISHEN, [facility] [id number] [place] 00:00:00 00:00:00 ERNESTO [address] 2019-10-13 2019-10-14 Outpatient KORIMILLI, [place] [id number] [place] 00:00:00 00:00:00 KRISTIN [address] 2019-10-08 2019-10-08 Outpatient SRIMAGALISHEN, [facility] [id number] [place] 00:00:00 00:00:00 ERNESTO [address] 2019-10-08 2019-10-08 Outpatient SRIKISHEN, [facility] [id number] [place] 00:00:00 00:00:00 ERNESTO [address] 2019-09-22 2019-09-22 Outpatient [facility] [id number] [place] 00:00:00 00:00:[address] 2019-09-22 2019-09-22 Outpatient DALAL, [facility] [id number] [place] 00:00:00 00:00:00 SUNEESH [address] 2019-09-22 2019-09-22 Outpatient [facility] [id number] [place] 00:00:00 00:00:[address] 2019-09-11 2019-09-11 Outpatient [facility] [id number] [place] 00:00:00 00:00:[address] 2019-09-03 2019-09-03 Outpatient MHIE MHIE [id number] [place] 13:15:00 13:15:00 04 l Reagan 2019-08-26 2019-08-26 Outpatient SARAVANAN, [facility] [id number] [place] 00:00:00 00:00:00 ABEL [address] 2019-08-26 2019-08-26 Outpatient [facility] [id number] [place] 00:00:00 00:00:[address] 2019-08-26 2019-08-26 Outpatient [facility] [id number] [place] 00:00:00 00:00:[address] 2019-08-07 2019-08-07 Outpatient FILIPESHEN, [facility] [id number] [place] 00:00:00 00:00:00 ERNESTO [address] 2019-08-07 2019-08-07 Outpatient DALAL, [facility] [id number] [place] 00:00:00 00:00:00 SUNEESH [address] 2019-07-30 2019-07-30 Outpatient MHIE MHIE [id number] [place] 14:45:00 14:45:00 03 l [place] 2019-07-17 2019-07-17 Outpatient MHIE MHIE [id number] [place] 15:30:00 15:30:00 01 l Reagan 2019-06-23 2019-06-23 Outpatient FILIPESHEN, [facility] [id number] [place] 00:00:00 00:00:00 ERNESTO [address] 2019-06-19 2019-06-19 Outpatient MHIE MHIE [id number] [place] 10:00:00 10:00:00 02 l Reagan 2019-06-08 2019-06-08 Outpatient DALAL, [facility] [id number] [place] 00:00:00 00:00:00 SUNEESH [address] 2019-06-08 2019-06-08 Outpatient DALAL, [facility] [id number] [place] 00:00:00 00:00:00 SUNEESH [address] 2019-06-05 2019-06-05 Outpatient DALAL, [facility] [id number] [place] 00:00:00 00:00:00 SUNEESH [address] 2019-06-05 2019-06-05 Outpatient DALAL, [facility] [id number] [place] 00:00:00 00:00:00 SUNEESH [address] 2019-06-05 2019-06-05 Outpatient DALAL, [facility] [id number] [place] 00:00:00 00:00:00 SUNEESH [address] 2019-06-04 2019-06-04 Outpatient DALAL, [facility] [id number] [place] 00:00:00 00:00:00 SUNEESH [address] 2019-05-27 2019-05-27 Outpatient MHIE MHIE [id number] [place] 14:30:00 14:30:00 00 l Reagan 2019-05-22 2019-05-22 Outpatient DALAL, [facility] [id number] [place] 00:00:00 00:00:00 SUNEESH [address] 2019-04-22 2019-04-22 Outpatient Dong, [facility] OUTD [id number] [facility] 23:06:00 23:06:[address] 2019-01-06 2019-01-14 Inpatient 3 SHUBHAM Hoffman [id number] [facility] 20:50:00 11:30:00 [facility]-12-24 2018-12-24 Emergency E MHBL MHBL [id number] [facility]BL 10:03:00 10:03:00 2018-11-26 2018-11-26 Outpatient MHBL MED [id number] [facility]BL 08:20:00 08:20:00 2018-03-27 2018-03-27 Outpatient [facility] [id number] 14:30:00 17:01:28 2018-03-27 2018-03-27 Appointmen MANDI [facility] Orthopedics [id number] [place] 14:30:00 14:30:00 t; MANDI JACKSON at [facility] ANDRAE JACKSON ans ANDREW, M.D. M.D. 2018-02-21 2018-02-21 Appointmen MANDI [facility] Orthopedics [id number] [place] 10:00:00 10:00:00 t; MANDI JACKSON at [place] ANDRAE JACKSON ans ANDREW, M.D. M.D. 2018-02-11 2018-02-11 Appointmen MANDI [facility] [id number] [place] 09:15:00 09:15:00 t; MANDI JACKSON Ph ANDRAE Vega ans ANDREW, M.D. M.D. Results Test Description Test Time Test Comments Results Result Comments Source UA, Urinalysis Rflx Cult/Sedmt 2021-12-02 14:10:00 Test Item Value Reference Range Interpretation Comme nts Color,Urine (test code = UCOL) Yellow Yellow Clarity,Urine (test code = UCLAR) Clear Clear Ph, Urine (test code = UPH) 7.5 5.0-9.0 N Specific [place],Urine (test code = USG) 1.020 1.005-1.030 N [...] code = ULEU) Negative mg/dL Negative Drug Screen,[id number] 14:10:00 Test Item Value Reference Range Interpretation [...] Negative Negative code = UPROP) Comprehensive Metabolic [id number] 14:10:00 Test Item Value Reference Range Interpretation [...] 94 U/L 46-116 N = ALP) Ethanol [id number] 14:10:00 Test Item Value Reference Range Interpretation Comments Ethanol (test code < 3 mg/dL The pharm acological = ETOH) response to blo od alcohol levels mayvary from individual to i ndividual. The fatal neo ntrationhas been reported t o be >400mg/dL. Complete Blood Count Auto [id number] 14:10:00 Test Item Value Reference Range Interpretation [...] = NRBCP) 0 % Coronavirus PCR, COVID19 [id number] 13:47:00 Test Item Value Reference Range Interpretation Comments Coronavirus PCR, For use under Emergency COVID19 Rapid (test Use Authorization (EUA) code = SARSCOV2) only. Coronavirus PCR, Reference Range: COVID19 Rapid (test Negative code = AHWPJQB85.1) SARS-CoV-2 PCR Result: Negative by RT-PCR (test code = SARS-CoV-2 PCR Result:) COVID-19 Status: Asymptomatic[QL] SED RATE BY MODIFIED [id number] 13:45:00 Test Item Value Reference Range Interpretation Comments SED RATE BY MODIFIED WESTERGREN (test 9 mm/h < OR = 20 N code = SED RATE BY MODIFIED WESTERGREN) [facility][QL] C-REACTIVE [id number] 13:45:00 Test Item Value Reference Range Interpretation Comments C-REACTIVE PROTEIN (test code = 2.1 mg/L <8.0 N C-REACTIVE PROTEIN) [place] PhysiciansInitial Promis 29 [id number] 15:29:33 Test Item Value Reference Range Interpretation Comments Pain Interference: (test code = Pain 66.9 1 N Interference:) Pain Intensity: (test code = Pain 53.7 1 N Intensity:) Physical Function: (test code = 34.1 1 N Physical Function:) Satisfaction Role: (test code = 37.1 1 N Satisfaction Role:) [place] PhysiciansSARS coronavirus 2 RNA [Presence] in Respiratory specimen by GURINDER with probe [id number] 15:01:12 Test Item Value Reference Range Interpretation Comments SARS coronavirus 2 RNA Not detected Not-Detected [Presence] in Respiratory specimen by GURINDER with probe detection (test code = 27253-6) [facility]- MRI BRAIN W/O [id number] 17:07:00 FAX: Ana Lyle [phone] Camps: PM St: DIS FAX: Bandar Dong MD [phone] FAX: Sudheer Tinajero [phone] Name: TOBY SUTHERLAND : 1950 Age/S: 69/M [address] [place] Unit #: [id number] Loc: [place] [address] Phys: Ana Sidhu MD Acct: [id number] Dis Date: 20190425 Status: DIS IN PHONE #: [phone] Exam Date: 04/25/2019 1135 FAX #: Reason: seziures EXAMS: CPT: [id number] MRI BRAIN W/O CONTRAST [id number] EXAM: MRI BRAIN WITHOUT CONTRAST INDICATION:Seizures COMPARISON: CT head dated April 22, 2019 [...] a similar appearance. Correlate with the appropriate clinicalhistory. LOCATION: A 1 at 1707 Reported and signed by: Donna Yanez M.D. PAGE 1 Signed Report (CONTINUED) FAX: Ana Lyle [phone] Camps: PM St: DIS FAX: Bandar Dong MD [phone] FAX: Sudheer Tinajero [phone] Name: TOBY SUTHERLAND : 1950 Age/S: 69/M [address] [place] Unit #: [id number] Loc: [place] [address] Phys: Ana Sidhu MD Acct: [id number] Dis Date: 20190425 Status: DIS IN PHONE #: [phone] Exam Date: 04/25/2019 1137 FAX #: Reason: seziures EXAMS: CPT: [id number] MRI BRAIN W/O CONTRAST [id number] (Continued) CC: Ana Sidhu MD; Bandar Dong MD; Sudheer AGUILAR Technologist: RT Ishan(R)(MR) Transcribed Date/Time/By: 04/25/2019 (3023) :[email or web address] Orig Print D/T: S: 04/25/2019 (6447) PAGE 2 Signed ReportBASIC METABOLIC [id number] 04:43:00 Test Item Value Reference Range Interpretation [...] CA) 8.7 MG/DL 8.5-10.1 N CBC W/AUTO [id number] 04:29:00 Test Item Value Reference Range Interpretation [...] = NO DIFF/SCN CRITERIA MDIFF) CBC W/AUTO [id number] 22:47:00 Test Item Value Reference Range Interpretation [...] code = NO DIFF/SCN CRITERIA MDIFF) - RETRO [id number] 16:17:00 Name: TOBY SUTHERLAND [facility]ly [facility] : 1950 Age/S: 69 / M [address] [place] Unit #: [id number] Loc: [place] [address] Phys: Bandar Dong MD Acct: [id number] Dis Date: Status: ADM IN JOEL NE #: [phone] Exam Date: 04/23/2019 1430 FAX #: Reason: PELVIC PAIN EXAMS: CPT: [id number] [employer] [id number] EXAMINATION: - US [employer]RO LTD. LOCATION: S17. [...] Urinary bladder is decompressed by the presence ofFoley catheter, thus could not be evaluated. IMPRESSION: No hydronephrosis. Electronically Signedby Grace Gonzalez on 04/23/2019 at 1617 Reported and signed by: Vangie Gonzalez M.D. CC: Bandar Dong MD Technologist: Sully Macedo, RT(R),RDMS(AB) Trnidb Date/Time: 04/23/2019 (1617) tFINAANS4 PAGE 1 Signed Report Name: TOBY SUTHERLAND Shapleigh : 1950 Age/S: 69 / M [address] Unit #: [id number] Loc: [place] [address] Phys: Bandar Dong MD Acct: [id number] Dis Date: Status: ADM IN PHONE #: [phone] Exam Date: 04/23/2019 1430 FAX #: Reason: PELVIC PAIN EXAMS: CPT: [id number] US RETRO LTD [id number] (Continued) Orig Print D/T: S: 04/23/2019(1621) Probe: PAGE 2 Signed ReportCOMPREHENSIVE METABOLIC [id number] 04:20:00 Test Item Value Reference Range Interpretation [...] 50-136 N TOTAL (test code = ALKP) [id number] 04:20:00 Test Item Value Reference Range Interpretation Comments PHOSPHOROUS (test code = PHOS) 3.1 MG/DL 2.5-4.9 N [id number] 04:20:00 Test Item Value Reference Range Interpretation Comments MAGNESIUM (test code = MAG) 2.3 MG/DL 1.8-2.4 N CBC W/AUTO [id number] 04:09:00 Test Item Value Reference Range Interpretation [...] code = DIFF/SCN CRITERIA MDIFF) CBC W/AUTO [id number] 16:54:00 Test Item Value Reference Range Interpretation [...] = NO DIFF/SCN CRITERIA MDIFF) BASIC METABOLIC [id number] 16:50:00 Test Item Value Reference Range Interpretation [...] MG/DL 8.5-10.1 N - CT HEAD/BRAIN W/O [id number] 16:42:00 Name: TOBY SUTHERLAND Shapleigh : 1950 Age/S: 69 / M [id number] Unit #: [id number] Loc: [place] [address] Phys: Dharmesh Irving MD Acct: [id number] Dis Date: Status: ADM INPHONE #: [phone] Exam Date: 04/22/2019 1634 FAX #: Reason: seizure EXAMS: CPT: [id number] CT HEAD/BRAIN W/O CONT 14174 EXAM: CT BRAIN WITHOUT CONTRAST INDICATION: SEIZURE COMPARISON: None available TECHNIQUE: Routine axial CT images of the brain were obtained without venous contrast. IV contrast:None DLP: 804.23 mGy-cm FINDINGS: No intra-axial or extra-axial fluid collections were identified. No acute intracranial hemorrhage. There are areas of low-attenuation within the supratentorial white matter consistent with chronic microvascular ischemic changes. There is prominence of the ventricles an d sulci consistent with diffuse cerebral volume loss. [...] 1 Signed Report (CONTINUED) Name: TOBY SUTHERLAND Shapleigh : 1950 Age/S: 69 / M [address] Unit #: [id number] Loc: [place] [address] Phys: Dharmesh Irving MD Acc t: [id number] Dis Date: Status: ADM IN PHONE #: [phone] Exam Date: 04/22/2019 1634 FAX #: Reason: seizure EXAMS: CPT: [id number] CT HEAD/BRAIN W/O CONT 77412 (Continued) CC: Dharmesh Irving MD Technologist:Dl Ritter, RT(R)(CT) CTDI: DLP: Trnscb Date/Time: 04/22/2019 (1641) 16 Orig Print D/T: S: 04/22/2019 (1645) PAGE 2 Signed ReportUA RFLX MICR CULT [...] for culture: Dysuria/FrequencyUA RFLX MICR CULT IF [id number] 16:39:00 Test Item Value Reference Range Interpretation [...] for culture: Dysuria/FrequencyCT Spine lumbar wo contrast [id number] 10:18:00CT lumbar spine without contrast 03/21/2018HISTORY: Spondylolisthesis.PROCEDURE: [...] limits evaluation of the spinal canal at theL4-M1gtwbt. There is no cortical irregularity or lucency [...] these levels.3. No acute fracture or dislocation.SL: [id number]-F--Ewjh by: Kayy Collins MDDictated Date/time: 03/24/18 10:14Electronically Signed by: Kayy Collins MD 03/24/1810:20FINAL REPORTUT [facility] Spine lumbar wo contrast [id number] 19:36:00EXAM: MRI LUMBAR SPINE WITHOUT CONTRASTDATE: 03/12/2018 [...] degenerative changes.--This report was dictated by a Promotions Executive Producer/Fellow. I have personallyreviewed the images aswell as the Resident's interpretation and agree with the findings.Read by: Sridhar Bee Resident: Sridhar Beeictated Date/time: 03/13/18 14:38Electronically Signed by: Rigo Hawthorne MD 03/14/1810:58FINAL REPORTUT [facility] Spine lumbar wo contrast [id number] 11:51:00 Test Item Value Reference Range Interpretation Comments Spine lumbar wo Cancel Reason: Patient contrast MRI (test code Refused = [id number]) [facility][U] XRAY SPINE LUMBOSACRAL 2 OR 3 VWS [id number] 10:03:00 Images acquired, not reported on this accession number.[facility]
[2022-03-21 00:36] LABS: Absolute Lymphocytes (CBC) 1.1 K/uL (0.7-4.9); Hematocrit 35.9 % (39.6-49.0); Lymphocytes % 11.1 % (15.3-44.8); MCV 89.4 fL (80-100); MPV 5.9 fL (7.6-11.3); RBC Red Blood Cell Count 4.01 M/uL (4.33-5.43)
[2022-03-21 00:50] LABS: Protime INR 0.94
[2022-03-21] MEDS ORDERED: LORazepam 2 MG/ML VIAL ONE ×3 (00:55→13:43)
[2022-03-21] MEDS ORDERED: THIAMINE 200 MG/2 ML INJ ONE (00:55)
[2022-03-21] MEDS ORDERED: MULTIVITAMINS 10 ML VIAL (INJ) IV ONE (00:56)
[2022-03-21] MEDS ORDERED: NA CHLORIDE 0.9% 1,000 ML ONE (00:56)
[2022-03-21] MEDS ORDERED: ONDANSETRON 4 MG/2 ML VIAL ONE (00:56)
[2022-03-21] MEDS ORDERED: FOLIC ACID 5 MG/ML VIAL ONE (00:57)
[2022-03-21 01:02] LABS: Albumin 3.5 g/dL (3.4-5.0); Bilirubin Direct 0.2 mg/dL (0-0.2); Bilirubin Total 0.4 mg/dL (0.2-1.0); Magnesium 2.9 mg/dL (1.8-2.4); Potassium 3.7 mmol/L (3.5-5.1); Protein, Total 7.2 g/dL (6.4-8.2); Troponin High Sensitivity 9.5 pg/mL (<58.9)
[2022-03-21] MEDS ORDERED: DIAZEPAM 10 MG/2 ML INJ SYRINGE ONE (01:45)
--- NOTE | 2022-03-21 02:37 | ER ---
Nurse's Notes [facility] Name: Ken Sutherland Jr Age: 72 yrs Sex: Male : 1950 Arrival Date: 03/20/2022 Time: 21:45 Bed 19 Private MD: Diagnosis: Alcohol dependence with withdrawal, unspecified;Ileus, unspecified Presentation: 03/20 21:54 Chief complaint: Patient states: "I had not really been drinking then I had some wine. tw5 I had about a pint." at the bedside mouths " He drank way way more. He has not really been eating and drinking a lot.". Chief complaint: Spouse and/or significant other states: "He also threw up and he was saying he was in a lot of pain.". Coronavirus screen: Vaccine status: Patient reports receiving the 2nd dose of the covid vaccine. Dataupia. Ebola Screen: Patient negative for fever greater than or equal to 101.5 degrees Fahrenheit, and additional compatible Ebola Virus Disease symptoms Patient denies exposure to infectious person. Patient denies travel to an Ebola-affected area in the 21 days before illness onset. Initial Sepsis Screen: Does the patient meet any 2 criteria?. Initial Sepsis Screen: Does the patient have a suspected source of infection? No. Patient's initial sepsis screen is negative. Risk Assessment: Do you want to hurt yourself or someone else? Patient reports no desire to harm self or others. Onset of symptoms was March 20, 2022. 21:54 Method Of Arrival: Wheelchair tw5 21:54 Acuity: JENAE 3 tw5 Triage Assessment: 21:57 General: Appears uncomfortable, Behavior is agitated, anxious, "Shaky". Pain: Pain tw5 currently is 0 out of 10 on a pain scale. GI: Reports diarrhea, nausea, vomiting. Historical: - Allergies: 21:57 Sulfa (Sulfonamide Antibiotics); tw5 - PMHx: 21:57 Alcoholism; tw5 - PSHx: 21:57 knee replacement- right; prostate surgery; tw5 - Immunization history:: Flu vaccine is not up to date. It has been more than one year since last vaccine. - Social history:: Smoking status: Reported history of juuling and/or vaping. Patient uses alcohol, on a daily basis. Screenin:59 Abuse screen: Denies threats or abuse. Denies injuries from another. tw5 23:36 Nutritional screening: PT NOT REALLY EATING OR DRINKING MUCH EXCEPT FOR ETOH. jj7 Tuberculosis screening: No symptoms or risk factors identified. Fall Risk Fall in past 12 months (25 points). No secondary diagnosis (0 pts). No IV (0 pts). Ambulatory Aid- None/Bed Rest/Nurse Assist (0 pts). Gait- Impaired (20 pts.). Mental Status- Oriented to own ability (0 pts). Total Jain Fall Scale indicates High Risk Score (45 or more points). Fall prevention measures have been instituted. Side Rails Up X 2 Placed Close to Nursing Station Family Present and informed to notify staff if the need to leave the bedside As available patient and family educated on Fall Prevention Program and Strategies. Assessment: 23:36 General: Appears distressed, Behavior is cooperative, appropriate for age, anxious, jj7 Smells of alcohol. Neuro: No deficits noted. Reports SHAKINESS. GI: No deficits noted. 03/21 02:43 Reassessment: Patient states feeling better. Patient states symptoms have improved. jj7 Vital Signs: 03/20 21:54 BP 118 / 90; Pulse 112; Resp 20; Temp 99.3; Pulse Ox 96% on R/A; Weight 90.72 kg; tw5 Height 5 ft. 8 in. (172.72 cm); Pain 0/10; 03/21 00:03 BP 141 / 90; Pulse 113; Resp 22; Pulse Ox 98% ; jj7 01:18 BP 111 / 83; Pulse 106; Resp 21; Pulse Ox 96% ; jj7 02:15 BP 111 / 85; Pulse 98; Resp 17; Pulse Ox 98% ; Pain 0/10; jj7 03/20 21:54 Body Mass Index 30.41 (90.72 kg, 172.72 cm) tw5 ED Course: 03/20 21:45 Patient arrived in ED. ja2 21:57 Triage completed. tw5 21:57 Arm band placed on left wrist. tw5 22:48 Douglas Sanabria PA is PHCP. cp 22:48 Douglas Carreno MD is Attending Physician. cp 23:37 XRAY Chest (1 view) In Process Unspecified. EDMS 23:39 Cole Reardon, GUANAKITO is Primary Nurse. jj7 03/21 00:03 Inserted saline lock: 22 gauge in right ,using aseptic technique. CHEST. jj7 00:30 ETOH Level Sent. jj7 00:30 Lipase Sent. jj7 02:22 Head C Spine Mpr Wo Con In Process Unspecified. EDMS 02:23 Abdomen In Process Unspecified. EDMS 02:36 Roosevelt Sigala FNP-C is Hospitalizing Provider. cp 02:37 Sushant Asif is Hospitalizing Provider. la1 14:07 Primary Nurse role handed off by Cole Reardon RN bd 14:10 Margy Suarez, GUANAKITO is Primary Nurse. kr3 16:21 Report given to GUANAKITO Mcdaniel. kr3 16:43 No provider procedures requiring assistance completed. Patient admitted, IV remains in kr3 place. 16:45 Bed in low position. Call light in reach. Side rails up X2. kr3 Administered Medications: 01:09 Drug: Zofran (Ondansetron) 4 mg Route: IVP; Site: Other; jj7 01:20 Follow up: Response: Nausea is decreased jj7 01:09 Drug: Ativan (LORazepam) 0.5 mg Route: IVP; Site: Other; jj7 01:30 Follow up: Response: No adverse reaction jj7 01:09 Drug: Banana Bag - (NS 0.9% 1000 ml, foLIC Acid 1 mg, Thiamine 100 mg, Multivitamin 1 jj7 amp) Route: IV; Rate: 125 ml/hr; Site: Other; 07:06 Follow up: Response: No adverse reaction jj7 01:51 Drug: Diazepam 1 mg Route: IVP; Site: Other; jj7 02:40 Follow up: Response: Anxiety decreased jj7 07:03 Follow up: Response: No adverse reaction db Medication: 03/20 23:36 VIS not applicable for this client. jj7 Outcome: 03/21 02:36 Decision to Hospitalize by Provider. cp 16:44 Admitted to Med/surg kr3 16:44 Condition: stable 16:44 Instructed on the need for admit. 16:46 Patient left the ED. kr3 Signatures: Dispatcher [employer] EDFL Lashanda Eric Roosevelt Sigala FNP-C CELLULAR EQUIPMENT REPAIRER-Cla1 Douglas Sanabria PA PA cp Alexander, Jessica ja Alina Adkins tw5 Margy Suarez RN RN kr3 Cole Reardon RN RN jj7 Marine Moon RN RN db Corrections: (The following items were deleted from the chart) 03/20 21:58 21:57 PSHx: None; tw5 tw5
--- NOTE | 2022-03-21 02:37 | EDPHYS ---
Physician Documentation [facility] Name: Ken Sutherland Jr Age: 72 yrs Sex: Male : 1950 Arrival Date: 03/20/2022 Time: 21:45 Bed 19 Private MD: ED Physician Douglas Carreno HPI: 03/20 23:00 This 72 yrs old Male presents to ER via Wheelchair with complaints of cp Vomiting/Diarrhea, Possible Intoxication. 23:00 The patient presents to the emergency department with nausea, that is mild, vomiting, cp that is intermittent, diarrhea, that is intermittent. Onset: The symptoms/episode began/occurred yesterday. Possible causes: history of daily drinking. Associated signs and symptoms: Pertinent negatives: abdominal pain, constipation, GI bleeding, chest pain. Severity of symptoms: in the emergency department the symptoms are unchanged despite home interventions. Historical: - Allergies: 21:57 Sulfa (Sulfonamide Antibiotics); tw5 - PMHx: 21:57 Alcoholism; tw - PSHx: 21:57 knee replacement- right; prostate surgery; tw5 - Immunization history:: Flu vaccine is not up to date. It has been more than one year since last vaccine. - Social history:: Smoking status: Reported history of juuling and/or vaping. Patient uses alcohol, on a daily basis. ROS: 23:05 Constitutional: Positive for poor PO intake, Negative for body aches, chills, fever. cp 23:05 Eyes: Negative for injury, pain, redness, and discharge. cp 23:05 ENT: Negative for drainage from ear(s), ear pain, sore throat, difficulty swallowing, difficulty handling secretions. 23:05 Cardiovascular: Negative for chest pain. 23:05 Respiratory: Negative for cough, shortness of breath, wheezing. 23:05 Abdomen/GI: Positive for nausea and vomiting, diarrhea, dark colored stool, Negative for abdominal pain, constipation. 23:05 Back: Negative for pain at rest, pain with movement. 23:05 Neuro: Negative for altered mental status, headache, syncope. 23:05 All other systems are negative. Exam: 23:10 Constitutional: The patient appears in no acute distress, alert, awake, cp non-diaphoretic, non-toxic, well developed, well nourished. 23:10 Head/Face: Normocephalic, atraumatic. cp 23:10 Eyes: Periorbital structures: appear normal, Pupils: equal, round, and reactive to light and accomodation, Extraocular movements: intact throughout, Conjunctiva: normal, no exudate, no injection, Sclera: no appreciated abnormality, Lids and lashes: appear normal, bilaterally. 23:10 ENT: External ear(s): are unremarkable, Nose: is normal, Mouth: Lips: moist, Oral mucosa: pink and intact, moist, Posterior pharynx: Airway: no evidence of obstruction, patent, swelling, is not appreciated, erythema, is not appreciated, exudate, is not appreciated. 23:10 Neck: C-spine: vertebral tenderness, that is mild, appreciated at C6 and C7, crepitus, is not appreciated. 23:10 Chest/axilla: Inspection: normal, Palpation: is normal, no crepitus, no tenderness. 23:10 Cardiovascular: Rate: tachycardic, Rhythm: regular, Edema: is not appreciated, JVD: is not appreciated. 23:10 Respiratory: the patient does not display signs of respiratory distress, Respirations: normal, no use of accessory muscles, no retractions, labored breathing, is not present, Breath sounds: are clear throughout, no decreased breath sounds, no stridor, no wheezing. 23:10 Abdomen/GI: Inspection: distension, that is mild, Bowel sounds: active, all quadrants, Palpation: soft, in all quadrants, nontender, in all quadrants, Rectal exam: Stool: brown, guaiac negative. 23:10 Back: pain, is absent, ROM is normal. 23:10 Neuro: Orientation: to person, place \T\ time. Mentation: is normal, Motor: moves all fours, strength is normal, Sensation: is normal, Abnormal movements: resting tremor, is located in the right hand and left hand. Vital Signs: 21:54 BP 118 / 90; Pulse 112; Resp 20; Temp 99.3; Pulse Ox 96% on R/A; Weight 90.72 kg; tw5 Height 5 ft. 8 in. (172.72 cm); Pain 0/10; 11 00:03 BP 141 / 90; Pulse 113; Resp 22; Pulse Ox 98% ; jj7 01:18 BP 111 / 83; Pulse 106; Resp 21; Pulse Ox 96% ; jj7 02:15 BP 111 / 85; Pulse 98; Resp 17; Pulse Ox 98% ; Pain 0/10; jj7 03/20 21:54 Body Mass Index 30.41 (90.72 kg, 172.72 cm) tw5 MDM: 03/20 22:49 Patient medically screened. [facility] 03/21 02:35 Data reviewed: vital signs, nurses notes, lab test result(s), EKG, radiologic studies, cp CT scan, plain films. 02:35 Test interpretation: by ED physician or midlevel provider: ECG, plain radiologic cp studies. Physician consultation: Roosevelt PÉREZ was contacted at 02:30, regarding admission, to the telemetry unit. patient's condition. 03/20 22:49 Order name: Basic Metabolic Panel; Complete Time: 01:11 03/21 01:11 Interpretation: Normal except: NA 134; GLUC 152. 03/20 22:49 Order name: CBC with Diff; Complete Time: 01:11 03/21 01:11 Interpretation: Normal except: RBC 4.01; HGB 12.3; HCT 35.9; RDW 16.9; MPV 5.9; YONAS% cp 83.2; LYM% 11.1; NEUT A 8.5. 03/20 22:49 Order name: LFT's; Complete Time: 01:11 03/20 22:49 Order name: Magnesium; Complete Time: 01:11 03/20 22:49 Order name: NT PRO-BNP; Complete Time: 01:11 03/20 22:49 Order name: PT-INR; Complete Time: 01:11 03/20 22:49 Order name: Troponin HS; Complete Time: 01:11 03/20 22:49 Order name: XRAY Chest (1 view) 03/20 22:49 Order name: ETOH Level; Complete Time: 01:11 03/20 22:49 Order name: Lipase; Complete Time: 01:11 03/21 01:18 Order name: CT Abd/Pelvis - IV Contrast Only 03/21 07:04 Order name: SARS-COV-2 Antigen Rapid bd 03/21 09:01 Order name: SARS-COV-2 Antigen Rapid EDOR 03/20 22:49 Order name: EKG; Complete Time: 22:50 03/20 22:49 Order name: Cardiac monitoring; Complete Time: 01:03 03/20 22:49 Order name: EKG - Nurse/Tech; Complete Time: 00:04 03/20 22:49 Order name: IV Saline Lock 03/20 22:49 Order name: Labs collected and sent 03/20 22:49 Order name: O2 Per Protocol 03/20 22:49 Order name: O2 Sat Monitoring 03/21 01:22 Order name: Abdomen EDMS 03/21 02:22 Order name: Head C Spine Mpr Wo Con EDMS 03/21 03:39 Order name: NPO; Complete Time: 13:53 cp Administered Medications: 01:09 Drug: Zofran (Ondansetron) 4 mg Route: IVP; Site: Other; jj7 01:20 Follow up: Response: Nausea is decreased jj7 01:09 Drug: Ativan (LORazepam) 0.5 mg Route: IVP; Site: Other; jj7 01:30 Follow up: Response: No adverse reaction j7 01:09 Drug: Banana Bag - (NS 0.9% 1000 ml, foLIC Acid 1 mg, Thiamine 100 mg, Multivitamin 1 jj7 [facility]) Route: IV; Rate: 125 ml/hr; Site: Other; 07:06 Follow up: Response: No adverse reaction jj7 01:51 Drug: Diazepam 1 mg Route: IVP; Site: Other; jj7 02:40 Follow up: Response: Anxiety decreased jj7 07:03 Follow up: Response: No adverse reaction db Disposition Summary: 03/21/22 02:36 Hospitalization Ordered Condition: Stable cp Problem: new cp Symptoms: have improved cp Bed/Room Type: Standard cp Provider: Sushant Asif(03/21/22 02:37) la1 Hospitalization Status: Inpatient Admission(03/21/22 03:40) cp Location: Telemetry/MedSurg (Inpatient)(03/21/22 14:52) bd Room Assignment: 201(03/21/22 15:37) bd Diagnosis - Alcohol dependence with withdrawal, unspecified cp - Ileus, unspecified cp Forms: - Medication Reconciliation Form cp - SBAR form cp Addendum: 03/25/2022 07:51 Co-signature as Attending Physician, Douglas Carreno MD I agree with the assessment and c elliott plan of care. Signatures: Dispatcher [employer] EDMS Lashanda rEic Corey, MD MD cha Attema, Lee, [employer]LE SCHOOL ENGLISH TEACHER-C [employer] ENGLISH TEACHER-Cla1 Douglas Sanabria PA PA Sasha Murphy, RN RN randall Alina Adkins tw5 Cole Reardon RN RN jj7 Mairne Moon RN db Corrections: (The following items were deleted from the chart) 03/20 21:58 21:57 PSHx: None; 03/21 02:21 02:00 Head C Spine MPR Wo Con+CT.RAD.BRZ ordered. EDMS EDMS 02:22 01:24 Head Brain Wo Cont+CT.RAD.BRZ ordered. EDMS EDMS 02:37 02:36 Roosevelt Sigala cp la1 03:20 02:36 Telemetry/MedSurg (observation) cp cg 03:20 02:36 cp cg 03:40 02:36 Observation cp cp 14:52 03:20 [facility] ER HOLD cg bd 14:52 03:20 ERHOLD- cg bd 15:37 14:52 211 bd bd
--- NOTE | 2022-03-21 03:17 | P.HP ---
Certification for Inpatient Patient admitted to: Observation With expected LOS: <2 Midnights Patient will require the following post-hospital care: None Practitioner: I am a practitioner with admitting privileges, knowledge of patient current condition, hospital course, and medical plan of care. Services: Services provided to patient in accordance with Admission requirements found in Title 42 Section 412.3 of the Code of Federal Regulations Patient History Date of Service: 03/21/22 Reason for admission: Alcohol withdrawal History of Present Illness: 72-year-old male with history of chronic alcoholism presents to the emergency department for nausea/vomiting/"not feeling right". His felt as if he was intoxicated and brought him in for further evaluation, further questioning revealed patient had recently been abstaining from alcohol, he is a heavy drinker of "of both beer and wine on a daily basis/drink was about 24 hours ago. His labs were significant for hemoglobin 12.1 3 medical 35.9 sodium 134. Patient was noted to be tachycardic, tremulous in the ED CIWA score was 12, patient reports he wants to quit drinking. ED provider wishes to admit under observation for alcohol withdrawal. Allergies Sulfa (Sulfonamide Antibiotics) Allergy (Verified 12/14/21 17:58) Hives/Rash Home Medications: Amitriptyline HCl 1 tab PO BEDTIME 12/14/21 Duloxetine [Cymbalta *] 60 mg PO DAILY 12/14/21 Tamsulosin HCl 1 cap PO DAILY 12/14/21 Trazodone [Desyrel*] 1 tab PO BEDTIME 12/14/21 buprenorphine HCL [Buprenorphine HCl] 1 tab SL Q12HR 12/14/21 Bisacodyl [Dulcolax] 10 mg RC DAILY #5 supp 12/15/21 Cyanocobalamin [Vitamin B-12*] 1,000 mcg PO DAILY #30 tab 12/15/21 Folic Acid 1 mg PO DAILY #30 tab 12/15/21 Polyethylene Glycol 3350 [Miralax] 17 gm PO DAILY #30 12/15/21 Thiamine HCl 100 mg PO DAILY #30 tab 12/15/21 - Past Medical/Surgical History Diabetic: No -: Hypertension -: Anxiety disorder -: Chronic alcoholism -: Insomnia -: Back SX -: Urethral dilation Psychosocial/ Personal History: Patient lives at home with his - Family History Family History: Reviewed- Non-Contributory - Social History Smoking Status: Never smoker Alcohol use: Yes CD- Drugs: No Caffeine use: Yes Place of Residence: Home Review of Systems 10-point ROS is otherwise unremarkable General: Other (Anxiety, light sensitivity, headache) Gastrointestinal: Nausea Physical Examination - Physical Exam General: Alert, In no apparent distress, Oriented x3 HEENT: Atraumatic, PERRLA, Mucous membr. moist/pink, EOMI, Sclerae nonicteric Neck: Supple, 2+ carotid pulse no bruit, No LAD, Without JVD or thyroid abnormality Respiratory: Clear to auscultation bilaterally, Normal air movement Cardiovascular: Regular rate/rhythm, Normal S1 S2 Capillary refill: <2 Seconds Gastrointestinal: Normal bowel sounds, No tenderness Musculoskeletal: No tenderness Integumentary: No rashes Neurological: Normal speech, Normal strength at 5/5 x4 extr, Normal tone, Normal affect - Studies Laboratory Data (last 24 hrs) 03/21/22 00:23: PT 10.3, INR 0.94 03/21/22 00:23: WBC 10.20, Hgb 12.3 L, Hct 35.9 L, Plt Count 188 03/21/22 00:23: Sodium 134 L, Potassium 3.7, BUN 14, Creatinine 0.85, Glucose 152 H, Magnesium 2.9 H, Total Bilirubin 0.4, AST 37, ALT 41, Alkaline Phosphatase 106, Lipase 96 Assessment and Plan - Plan Assessment: Alcohol withdrawalhistory of chronic alcoholism Plan: Alcohol withdrawalhistory of chronic alcoholism: ETOH withdrawal screening Q4 and PRN, librium 10mg TID and ativan PRN. Continue banana bag, vitamin supplementation. Pt plans on alcohol cessation, reports gave him an ultimatum. CIWA-AR 12 on admission, tachycardic and tremulous. DVT PPX: Lovenox Code status:full Discharge Plan: Home Plan to discharge in: 24 Hours - Advance Directives Does patient have a Living Will: No Does patient have a Durable POA for Healthcare: No - Code Status/Comfort Care Code Status Assessed: Yes (Full code) Critical Care: No Time Spent Managing Pts Care (In Minutes): 55
[2022-03-21 04:15] VITALS: BMI 30.3
[2022-03-21] MEDS: FOLIC ACID 1 MG, MULTIVITAMINS INJ 10 ML, THIAMINE HCL 100 MG in NA CHLORIDE 0.9% 1,000 ML IV SCH (08:15)
[2022-03-21] MEDS ORDERED: NA CHLORIDE 0.9% 100 ML IV ONE (08:51)
[2022-03-21] MEDS ORDERED: ENOXAPARIN 40 MG/0.4 ML SQ ONE (08:51)
[2022-03-21] MEDS ORDERED: PIPERACIL/TAZO 3.375 GM VIAL IV ONE (08:52)
[2022-03-21] MEDS: LORazepam 2 MG/ML VIAL IV PRN ×4 (08:53→22:16)
[2022-03-21] MEDS: PIPER TAZO 3.375 GM in NA CHLORIDE 0.9% 100 ML IV SCH ×2 (09:00→17:34)
[2022-03-21] MEDS: CYANOCOBALAMIN 1,000 MCG TAB PO SCH (09:00)
[2022-03-21] MEDS: ENOXAPARIN 40 MG/0.4 ML SQ SCH (09:00)
[2022-03-21 09:01] LABS: SARS-CoV-2 Antigen Rapid Res Negative (Negative)
--- NOTE | 2022-03-21 12:29 | RAD REPORT ---
EXAM DESCRIPTION: RAD - Chest Single View - 03/20/2022 11:35 pm CLINICAL HISTORY: The patient is 72 years old and is Male; vomiting TECHNIQUE: Frontal view of the chest. COMPARISON: No relevant prior studies available. FINDINGS: LUNGS: Unremarkable. No consolidation. PLEURAL SPACE: Unremarkable. No pneumothorax. HEART: Unremarkable. No cardiomegaly. MEDIASTINUM: Unremarkable. BONES/JOINTS: There are degenerative changes of the bones. VASCULATURE: Atherosclerosis of the aorta is present. UPPER ABDOMEN: Unremarkable as visualized. IMPRESSION: No acute cardiopulmonary process. Electronically signed by: Bobbi St MD 03/21/2022 12:25 AM OUTSOLE ROUNDER Due to temporary technical issues with the PACS/Fluency reporting system, reports are being signed by the in house radiologists without review as a courtesy to insure prompt reporting. The interpreting radiologist is fully responsible for the content of the report.
--- NOTE | 2022-03-21 14:30 | RAD REPORT ---
EXAM DESCRIPTION: CT - Abdomen Pelvis W Contrast - 03/21/2022 6:43 am CLINICAL HISTORY: The patient is 72 years old and is Male; nausea/vomiting TECHNIQUE: Axial computed tomography images of the abdomen and pelvis with intravenous contrast. S agittal and coronal reformatted images were created and reviewed. This CT exam was performed using one or more of the following dose reduction techniques: automated exposure control, adjustment of t he mA and/or kV according to patient size, and/or use of iterative reconstruction technique. COMPARISON: No relevant prior studies available. FINDINGS: Lung bases: Unremarkable. No mass. No consolidation. ABDOMEN: Liver: Hepatomegaly with diffuse hepatic steatosis. Gallbladder and bile ducts: Heterogeneity in the gallbladder lumen which may be due to gallstones or gallbladder sludge. No ductal dilation. Pancreas: Unremarkable. No mass. No ductal dilation. Spleen: Unremarkable. No splenomegaly. Adrenals: Unremarkable. No mass. Kidneys and ureters: Unremarkable. No solid mass. No hydronephrosis. Stomach and bowel: There are a few mildly distended loops of small bowel in the upper abdomen. Scattered colonic diverticula. No mucosal thickening. PELVIS: Appendix: No findings to suggest acute appendicitis. Bladder: Unremarkable. Reproductive: Unremarkable as visualized. ABDOMEN and PELVIS: Intraperitoneal space: Unremarkable. No free air. No significant fluid collection. Bones/joints: Postsurgical changes from L4 to S1. Disc space narrowing with degenerative endplate changes in the spine. No acute fracture. No dislocation. Soft tissues: Unremarkable. Vasculature: Scattered atherosclerotic vascular calcifications. No abdominal aortic aneurysm. Lymph nodes: Unremarkable. No enlarged lymph nodes. IMPRESSION: 1. There are a few mildly distended loops of small bowel in the upper abdomen. Findi ngs can be seen with ileus or partial obstruction. 2. Hepatomegaly with diffuse hepatic steatosis. 3. Heterogeneity in the gallbladder lumen which may be due to gallstones or gallbladder sludge. 4. Scattered colonic diverticula. 5. Additional non-emergent findings as above. Electronically signed by: Paco Hilton MD 03/21/2022 3:12 AM [facility] Due to temporary technical issues with the PACS/kingsky reporting system, reports are being signed by the in house radiologists without review as a courtesy to insure prompt reporting. The interpreting radiologist is fully responsible for the content of the report. Due to temporary technical issues with the PACS/kingsky reporting system, reports are being signed by the in house radiologists without review as a courtesy to insure prompt reporting. The interpreting radiologist is fully responsible for the content of the report.
--- NOTE | 2022-03-21 14:51 | RAD REPORT ---
EXAM DESCRIPTION: CT - Head C Spine Mpr Wo Con - 03/21/2022 6:44 am CLINICAL HISTORY: The patient is 72 years old and is Male; alcohol abuse TECHNIQUE: Axial computed tomography images of the head/brain and cervical spine without intravenous contrast. Sagittal and coronal reformatted images were created and reviewed. This CT exam was pe rformed using one or more of the following dose reduction techniques: automated exposure control, a djustment of the mA and/or kV according to patient size, and/or use of iterative reconstruction techn ique. COMPARISON: CT of the head December 14, 2021 FINDINGS: BRAIN: Diffuse cerebral atrophy is noted. There are nonspecific periventricular white ma tter changes, which are likely related to chronic small vessel disease. The javier-white differentiatio n is maintained. There are no extra-axial fluid collections or acute hemorrhage. VENTRICLES: There is diffuse prominence of the ventricles, which is likely related to central atr ophy. SKULL: No acute fracture. SINUSES: Unremarkable as visualized. No acute sinusitis. MASTOID AIR CELLS: Unremarkable as visualized. No mastoid effusion. VERTEBRAE: The vertebral body heights and alignment are maintained. No acute fracture. DISCS/SPINAL CANAL/NEURAL FORAMINA: There is multi-level intervertebral disc height loss. There a re disc-osteophyte complexes at several levels, with associated mild spinal canal narrowing. There is also facet hypertrophy and uncovertebral joint osteophytosis, with associated multilevel neural fora vida narrowing. SOFT TISSUES: The soft tissues are normal. LUNG APICES: Unremarkable as visualized. IMPRESSION: 1. No acute intracranial findings visualized. 2. Nonspecific periventricular white matter changes, likely related to chronic small vessel disease . 3. Diffuse cerebral atrophy. 4. Moderate spondylosis of the cervical spine without acute findings. Electronically signed by: Bobbi St MD 03/21/2022 3:07 AM [employer] Due to temporary technical issues with the PACS/Fluency reporting system, reports are being signed by the in house radiologists without review as a courtesy to insure prompt reporting. The interpreting radiologist is fully responsible for the content of the report.
--- NOTE | 2022-03-21 15:15 | CON ---
Date of Consultation: 03/21/2022 Reason For Consultation: Ileus versus small bowel obstruction. History Of Present Illness: The patient is a 72-year-old gentleman with chronic alcoholism, who pres ented to the emergency room with nausea, vomiting and not feeling right. His stated that the pa gonzález recently had been abstaining from alcohol. He is a heavy drinker. His last drink was about 24 hours ago. He was admitted for withdrawal and CT of the abdomen and pelvis shows that the patient h as an ileus versus small bowel obstruction early. The patient denies any abdominal pain, nausea, or vomiting. At this time. He is passing gas. No dysuria or hematuria. No sore throat, runny nose, c ough, headaches, or dizziness. He is confused, he does not know why he is in the hospital, but he is in no acute distress. No sore throat, runny nose, cough, headaches, dizziness, chest pain, fever or chills. Review of Systems: Otherwise unremarkable. Past Medical History: Hypertension, anxiety, chronic alcoholism. Past Surgical History: Back surgery, ureteral dilatation. Allergies: SULFA. Social History: The patient does not smoke. Drinks alcohol. Family History: Noncontributory. Physical Examination: Vital Signs: Stable. He is currently afebrile. General: He is awake, confused. Head and Neck: No masses. Chest: Clear. Heart: S1, S2. Abdomen: Soft, nondistended, nontender. Positive bowel sounds. Extremities: Neurovascularly intact. Neuro: Nonfocal. Laboratory Data: White count is 10.2, H and H are 12.3 and 35.9, neutrophil percentage is 82.2. INR is 0.94. Chemistry reviewed. Magnesium is slightly high at 2.9. Lipase is 96. CT of the abdomen and pelvis reviewed, essentially shows ileus, possible early small bowel obstruction. Assessment: A 72-year-old gentleman with history of nausea and vomiting. I do not think the patient is obstructed, believe the patient may have had a mild ileus which has since resolved. Recommendations: Medical management for the patient's alcohol withdrawal and I would attempt clear l iquid if tolerated and diet can be advanced as tolerated. There is no need for any surgical interven tion. The patient can be discharged when medically cleared. /MODL Voice ID: [id number] Report ID: [id number]
[2022-03-21] MEDS ORDERED: CYANOCOBALAMIN 1,000 MCG TAB ONE (16:10)
--- NOTE | 2022-03-21 16:24 | EKG ---
Test Date: 2022-03-20 Test Time: 23:54:07 Rotary Operator: MAX MEASUREMENT RESULTS: Intervals: Rate: 109 GA: 174 QRSD: 104 QT: 338 QTc: 455 [place]: P: 37 GA: 174 QRS: -1 T: 22 INTERPRETIVE STATEMENTS: Sinus tachycardia Cannot rule out Anterior infarct, age undetermined Abnormal ECG Compared to ECG 12/14/2021 10:00:25 Myocardial infarct finding now present Sinus rhythm no longer present Sinus arrhythmia no longer present Electronically Signed On 03-21-22 16:22:54 HERPETOLOGIST by John Tucker
--- NOTE | 2022-03-21 17:13 | P.PN ---
Date of Service: 03/21/22 Patient seen and examined. Patient was drowsy this morning. No tremors or agitation. He is tolerating clear liquid diet. Diagnosis: Alcohol abuse. Intestinal ileus. Plan: General surgery-Dr. Rogel input appreciated. Patient started on clear liquid diet. Medical management, serial abdominal examination. Patient is on CIWA for alcohol withdrawal.
[2022-03-22] MEDS: PIPER TAZO 3.375 GM in NA CHLORIDE 0.9% 100 ML IV SCH ×3 (00:56→18:49)
[2022-03-22] MEDS: LORazepam 2 MG/ML VIAL IV PRN ×7 (01:11→23:48)
[2022-03-22 04:05] LABS: Absolute Lymphocytes (CBC) 1.3 K/uL (0.7-4.9); Hematocrit 32.2 % (39.6-49.0); Lymphocytes % 30.2 % (15.3-44.8); MCV 90.5 fL (80-100); MPV 6.1 fL (7.6-11.3); RBC Red Blood Cell Count 3.56 M/uL (4.33-5.43)
[2022-03-22 04:24] LABS: Bilirubin Total 0.6 mg/dL (0.2-1.0); Potassium 4.4 mmol/L (3.5-5.1); Protein, Total 6.2 g/dL (6.4-8.2)
[2022-03-22] MEDS: chlordiazePOXIDE HCl 5 MG CAP PO PRN ×3 (07:02→22:47)
--- NOTE | 2022-03-22 07:47 | RAD REPORT ---
EXAM DESCRIPTION: RAD - Abdomen 1 View (KUB) - 03/22/2022 6:51 am CLINICAL HISTORY: Abdomen pain FINDINGS: Air is present throughout nondilated small bowel and portions of the colon in a nonspecifi c fashion. No evidence of a bowel obstruction Postsurgical changes lumbar spine
[2022-03-22] MEDS: ENOXAPARIN 40 MG/0.4 ML SQ SCH (09:33)
[2022-03-22] MEDS: FOLIC ACID 1 MG, MULTIVITAMINS INJ 10 ML, THIAMINE HCL 100 MG in NA CHLORIDE 0.9% 1,000 ML IV SCH (09:33)
[2022-03-22] MEDS: CYANOCOBALAMIN 1,000 MCG TAB PO SCH (09:34)
--- NOTE | 2022-03-22 10:37 | P.PN ---
Subjective Date of Service: 03/22/22 Chief Complaint: Alcohol withdrawal Physical Examination - Vital Signs Temperature: 97.1 F Blood Pressure: 165/95 Pulse: 80 Respirations: 18 Pulse Ox (%): 97 Assessment And Plan - Current Problems (Diagnosis) (1) Alcohol withdrawal syndrome Current Visit: Yes Status: Acute (2) Paralytic ileus of small intestine Current Visit: Yes Status: Acute (3) Hypertension Current Visit: No Status: Acute (4) Orthostasis Current Visit: Yes Status: Acute - Plan Physical Exam General: Alert, In no apparent distress, Oriented x3 HEENT: Atraumatic, PERRLA, Mucous membr. moist/pink, EOMI, Sclerae nonicteric Neck: Supple, no elevated JVD. Respiratory: Clear to auscultation bilaterally, Normal air movement Cardiovascular: Regular rate/rhythm, Normal S1 S2 Gastrointestinal: Normal bowel sounds, No tenderness, nondistended Musculoskeletal: No tenderness Integumentary: No rashes Neurological: Normal speech, Normal strength at 5/5 x4 extr, Normal tone, Normal affect. Plan: Continue CIWA for alcohol withdrawal. Patient with intestinal ileus. Seen by general surgery who recommended medical management. Currently tolerating clear liquid diet. Repeat KUB shows air throughout the bowel, no distention and no evidence of bowel obstruction. Patient with orthostasis. Antihypertensives on hold. IV hydration. Hold all psychotropic medication. Monitor and optimize electrolytes.
[2022-03-22] MEDS: NICOTINE 21 MG/PAT TD SCH (12:56)
[2022-03-22] MEDS: BUPRENORPHINE HCL 2 MG SL SCH (18:42)
[2022-03-23] MEDS: PIPER TAZO 3.375 GM in NA CHLORIDE 0.9% 100 ML IV SCH ×3 (00:44→17:15)
[2022-03-23] MEDS: LORazepam 2 MG/ML VIAL IV PRN ×7 (01:08→23:14)
[2022-03-23] MEDS: chlordiazePOXIDE HCl 5 MG CAP PO PRN ×2 (04:02→19:17)
[2022-03-23] MEDS: TAMSULOSIN 0.4 MG SR CAP PO SCH (08:08)
[2022-03-23] MEDS: CYANOCOBALAMIN 1,000 MCG TAB PO SCH (08:08)
[2022-03-23] MEDS: ENOXAPARIN 40 MG/0.4 ML SQ SCH (08:08)
[2022-03-23] MEDS ORDERED: HOME MED 1 EA UNK (Omeprazole [Omeprazole] 20 MG Capsule.Dr) PO SCH (09:00)
[2022-03-23] MEDS: BUPRENORPHINE HCL 2 MG SL SCH ×3 (09:00→20:20)
[2022-03-23] MEDS: FOLIC ACID 1 MG, MULTIVITAMINS INJ 10 ML, THIAMINE HCL 100 MG in NA CHLORIDE 0.9% 1,000 ML IV SCH (09:19)
[2022-03-23] MEDS: PANTOPRAZOLE 40MG TABLET PO SCH (09:26)
[2022-03-23 10:19] VITALS: O2SAT 98
[2022-03-23 10:25] LABS: Absolute Lymphocytes (CBC) 1.4 K/uL (0.7-4.9); Hematocrit 33.2 % (39.6-49.0); Lymphocytes % 22.2 % (15.3-44.8); MCV 88.4 fL (80-100); MPV 6.1 fL (7.6-11.3); RBC Red Blood Cell Count 3.75 M/uL (4.33-5.43)
[2022-03-23 10:45] LABS: Albumin 3.1 g/dL (3.4-5.0); Bilirubin Total 0.5 mg/dL (0.2-1.0); Protein, Total 6.6 g/dL (6.4-8.2)
[2022-03-23] MEDS: NICOTINE 21 MG/PAT TD SCH (12:24)
--- NOTE | 2022-03-23 14:49 | P.PN ---
Subjective Date of Service: 03/23/22 Chief Complaint: Alcohol withdrawal Patient reports having quite agitated last night. He has been cooperative and interactive since this morning. He pulled out his IV line. Physical Examination - Vital Signs Temperature: 97.2 F Blood Pressure: 147/81 Pulse: 82 Respirations: 16 Pulse Ox (%): 92 - Physical Exam General: In no apparent distress, Oriented x2, Confused (Mildly confused) HEENT: Mucous membr. moist/pink Neck: JVD not distended Respiratory: Clear to auscultation bilaterally, Normal air movement Cardiovascular: No edema, Regular rate/rhythm, Normal S1 S2 Gastrointestinal: Soft and benign, Non-distended, No tenderness Musculoskeletal: No swelling Integumentary: No rashes Neurological: Normal strength at 5/5 x4 extr Assessment And Plan - Current Problems (Diagnosis) (1) Alcohol withdrawal syndrome Current Visit: Yes Status: Acute (2) Paralytic ileus of small intestine Current Visit: Yes Status: Acute (3) Hypertension Current Visit: No Status: Acute (4) Orthostasis Current Visit: Yes Status: Acute - Plan Physical Exam General: Alert, In no apparent distress, Oriented x3 HEENT: Atraumatic, PERRLA, Mucous membr. moist/pink, EOMI, Sclerae nonicteric Neck: Supple, no elevated JVD. Respiratory: Clear to auscultation bilaterally, Normal air movement Cardiovascular: Regular rate/rhythm, Normal S1 S2 Gastrointestinal: Normal bowel sounds, No tenderness, nondistended Musculoskeletal: No tenderness Integumentary: No rashes Neurological: Normal speech, Normal strength at 5/5 x4 extr, Normal tone, Normal affect. Plan: Continue [facility] for alcohol withdrawal. Patient with intestinal ileus. Seen by general surgery who recommended medical management. Ileus resolved. Currently tolerating solid diet. Patient with orthostasis. Antihypertensives on hold. Continue IV hydration. Hold all psychotropic medication. Monitor and optimize electrolytes. Haldol as needed for hallucination.
[2022-03-24] MEDS: LORazepam 2 MG/ML VIAL IV PRN ×3 (00:05→23:28)
[2022-03-24] MEDS: HALOPERIDOL LACT 5 MG/ML INJ IV PRN (00:41)
[2022-03-24] MEDS: PIPER TAZO 3.375 GM in NA CHLORIDE 0.9% 100 ML IV SCH ×3 (00:47→16:10)
[2022-03-24 05:08] LABS: Absolute Lymphocytes (CBC) 1.6 K/uL (0.7-4.9); Hematocrit 33.7 % (39.6-49.0); Lymphocytes % 31.9 % (15.3-44.8); MCV 88.9 fL (80-100); MPV 6.3 fL (7.6-11.3); RBC Red Blood Cell Count 3.78 M/uL (4.33-5.43)
[2022-03-24 05:28] LABS: Albumin 2.9 g/dL (3.4-5.0); Bilirubin Total 0.5 mg/dL (0.2-1.0); Protein, Total 6.5 g/dL (6.4-8.2)
[2022-03-24 05:29] LABS: Potassium 4.4 mmol/L (3.5-5.1)
[2022-03-24] MEDS: chlordiazePOXIDE HCl 5 MG CAP PO PRN (06:19)
[2022-03-24] MEDS: ENOXAPARIN 40 MG/0.4 ML SQ SCH (08:14)
[2022-03-24] MEDS: CYANOCOBALAMIN 1,000 MCG TAB PO SCH (08:15)
[2022-03-24] MEDS: TAMSULOSIN 0.4 MG SR CAP PO SCH (08:15)
[2022-03-24] MEDS: PANTOPRAZOLE 40MG TABLET PO SCH (08:16)
[2022-03-24] MEDS: BUPRENORPHINE HCL 2 MG SL SCH ×2 (08:24→21:51)
[2022-03-24] MEDS: NICOTINE 21 MG/PAT TD SCH (12:21)
[2022-03-24] MEDS: FOLIC ACID 1 MG, MULTIVITAMINS INJ 10 ML, THIAMINE HCL 100 MG in NA CHLORIDE 0.9% 1,000 ML IV SCH (12:25)
--- NOTE | 2022-03-24 18:14 | P.PN ---
Subjective Date of Service: 03/24/22 Chief Complaint: Alcohol withdrawal Patient states he feels much better today. He was given a few doses of Ativan and Haldol last night. He has been cooperative and interactive. He ambulated today. Physical Examination - Vital Signs Temperature: 98.4 F Blood Pressure: 157/94 Pulse: 88 Respirations: 20 Pulse Ox (%): 99 Assessment And Plan - Current Problems (Diagnosis) (1) Alcohol withdrawal syndrome Current Visit: Yes Status: Acute (2) Paralytic ileus of small intestine Current Visit: Yes Status: Acute (3) Hypertension Current Visit: No Status: Acute (4) Orthostasis Current Visit: Yes Status: Acute - Plan Physical Exam General: Alert, In no apparent distress, Oriented x3 Neck: Supple, no elevated JVD. Respiratory: Clear to auscultation bilaterally, Normal air movement Cardiovascular: Regular rate/rhythm, Normal S1 S2 Gastrointestinal: Normal bowel sounds, No tenderness, nondistended Musculoskeletal: No tenderness Integumentary: No rashes Neurological: No focal motor deficit, hand tremors resolved. Plan: Clinically improving. Continue CIWA for alcohol withdrawal. Patient with intestinal ileus. Seen by general surgery who recommended medical management. Ileus resolved. Currently tolerating solid diet. Patient with orthostasis. He is currently hypertensive. Resume home dose losartan. Continue IV hydration. Patient was given Haldol last night for agitation. Resume home dose Seroquel, trazodone and Cymbalta Monitor and optimize electrolytes. Discharge planning.
[2022-03-24] MEDS: ONDANSETRON 4 MG/2 ML VIAL IV PRN (20:20)
[2022-03-24] MEDS ORDERED: TRAZODONE 150 MG TAB PO SCH (21:00)
[2022-03-24] MEDS ORDERED: QUETIAPINE 25 MG TAB PO SCH (21:00)
[2022-03-25] MEDS ORDERED: MAGNES/ALUMIN/SIMET 30ML UCUP PO ONE (00:27)
[2022-03-25] MEDS: LORazepam 2 MG/ML VIAL IV PRN (00:48)
[2022-03-25] MEDS: ONDANSETRON 4 MG/2 ML VIAL IV PRN (02:12)
[2022-03-25] MEDS ORDERED: HALOPERIDOL LACT 5 MG/ML INJ IM PRN (03:03)
[2022-03-25] MEDS ORDERED: HALOPERIDOL LACT 5 MG/ML INJ ONE (03:32)
[2022-03-25] MEDS: HALOPERIDOL LACT 5 MG/ML INJ IV PRN (03:40)
[2022-03-25 03:48] LABS: Absolute Lymphocytes (CBC) 1.3 K/uL (0.7-4.9); Hematocrit 34.8 % (39.6-49.0); Lymphocytes % 23.3 % (15.3-44.8); MCV 90.2 fL (80-100); MPV 6.1 fL (7.6-11.3); RBC Red Blood Cell Count 3.85 M/uL (4.33-5.43)
[2022-03-25 04:04] LABS: Potassium 4.1 mmol/L (3.5-5.1)
[2022-03-25] MEDS ORDERED: VALSARTAN 160 MG TAB PO SCH (09:00)
[2022-03-25] MEDS: BUPRENORPHINE HCL 2 MG SL SCH (09:00)
[2022-03-25] MEDS ORDERED: DULOXETINE 30 MG CAP PO SCH (09:00)
[2022-03-25] MEDS: PANTOPRAZOLE 40MG TABLET PO SCH (09:30)
[2022-03-25] MEDS: TAMSULOSIN 0.4 MG SR CAP PO SCH (09:31)
[2022-03-25] MEDS: CYANOCOBALAMIN 1,000 MCG TAB PO SCH (09:31)
[2022-03-25 09:32] VITALS: BP 141/85
[2022-03-25] MEDS: ENOXAPARIN 40 MG/0.4 ML SQ SCH (09:32)
[2022-03-25 10:21] VITALS: TEMP 97.4
--- NOTE | 2022-03-25 11:26 | P.DS ---
Admission Date: 03/21/22 Discharge Date: 03/25/22 Disposition: ROUTINE DISCHARGE Discharge Condition: FAIR Reason for Admission: Alcohol withdrawal - Problems (1) Alcohol withdrawal syndrome Current Visit: Yes Status: Acute (2) Paralytic ileus of small intestine Current Visit: Yes Status: Acute (3) Hypertension Current Visit: No Status: Acute (4) Orthostasis Current Visit: Yes Status: Acute Brief History of Present Illness: 72-year-old male with history of chronic alcoholism presents to the emergency department for nausea/vomiting/"not feeling right". His felt as if he was intoxicated and brought him in for further evaluation, further questioning revealed patient had recently been abstaining from alcohol, he is a heavy drinker of "of both beer and wine on a daily basis. Last drink was about 24 hours prior. His labs were significant for hemoglobin 12.1 sodium 134. Patient was noted to be tachycardic, tremulous in the ED. CIWA score was 12, patient reported he wants to quit drinking. Patient admitted for further management of alcohol withdrawal. Hospital Course: Patient admitted to the medical floor and treated with CIWA protocol for alcohol withdrawal. He was given Haldol as needed for hallucinations and agitation history and hydrated with IV fluid. Patient developed alcohol withdrawal del irium which gradually improved with treatment. Mental status improved to baseline, his tremors resolved. CT abdomen and pelvis done for nausea and vomiting demonstrated ileus which was managed medically as recommended by general surgery Dr. Rogel. Patient is now ambulatory with no assistance. He is eating well. He is clinically improved and deemed stable for discharge. He is prescribed gabapentin to reduce his alcohol craving. Vital Signs/Physical Exam: Temp Pulse Resp BP Pulse Ox 97.4 F 92 H 18 141/85 H 92 03/25/22 08:00 03/25/22 09:30 03/25/22 08:00 03/25/22 09:30 03/25/22 08:00 General: Alert, In no apparent distress, Oriented x3 HEENT: PERRLA, Mucous membr. moist/pink Neck: JVD not distended Respiratory: Clear to auscultation bilaterally, Normal air movement Cardiovascular: No edema, Regular rate/rhythm, Normal S1 S2, No murmurs Gastrointestinal: Soft and benign, Non-distended, No tenderness Musculoskeletal: No swelling Integumentary: No rashes Neurological: Normal strength at 5/5 x4 extr Laboratory Data at Discharge: WBC 5.50 K/uL (4.3-10.9) 03/25/22 03:27 Hgb 11.9 g/dL (13.6-17.9) L 03/25/22 03:27 Hct 34.8 % (39.6-49.0) L 03/25/22 03:27 Plt Count 188 K/uL (152-406) 03/25/22 03:27 PT 10.3 SECONDS (9.5-12.5) 03/21/22 00:23 INR 0.94 03/21/22 00:23 Sodium 134 mmol/L (136-145) L 03/25/22 03:27 Potassium 4.1 mmol/L (3.5-5.1) 03/25/22 03:27 BUN 5 mg/dL (7-18) L 03/25/22 03:27 Creatinine 0.76 mg/dL (0.55-1.3) 03/25/22 03:27 Glucose 131 mg/dL (74-106) H 03/25/22 03:27 Magnesium 2.9 mg/dL (1.8-2.4) H 03/21/22 00:23 Total Bilirubin 0.5 mg/dL (0.2-1.0) 03/24/22 04:50 AST 29 U/L (15-37) 03/24/22 04:50 ALT 26 U/L (12-78) 03/24/22 04:50 Alkaline Phosphatase 81 U/L (45-117) 03/24/22 04:50 Lipase 96 U/L (73-393) 03/21/22 00:23 Home Medications: Duloxetine [Cymbalta *] 60 mg PO DAILY 12/14/21 Tamsulosin HCl 1 cap PO DAILY 12/14/21 Trazodone [Desyrel*] 1 tab PO BEDTIME 12/14/21 buprenorphine HCL [Buprenorphine HCl] 1 tab SL Q12HR 12/14/21 Omeprazole 20 mg PO DAILY 03/21/22 Quetiapine Fumarate [Seroquel] 50 mg PO BEDTIME 03/21/22 Valsartan 320 mg PO DAILY 03/21/22 Cyanocobalamin [Vitamin B-12*] 500 mcg PO DAILY #30 tab 03/25/22 Gabapentin 300 mg PO BEDTIME #14 cap 03/25/22 New Medications: Gabapentin 300 mg PO BEDTIME #14 cap Cyanocobalamin [Vitamin B-12*] 500 mcg PO DAILY #30 tab Diet: AHA Activity: Ad elodia Followup: NONE,NONE [Primary Care Provider] - 1-2 Weeks Time spent managing pt's care (in minutes): 36
== END 2022-03-25 11:45 | disposition home or self-care (01) | DRG 897 ==
LOC: ER 21:40 → OBSVTOIN 03-21 03:03 → ERHOLD 03-21 03:03 → 2ND 03-21 16:31
PROVIDERS: ADMIT Internal Medicine; ATTEND Internal Medicine
DX: F10.231 Alcohol dependence with withdrawal delirium (principal); K56.0 Paralytic ileus; I10 Essential (primary) hypertension; R00.0 Tachycardia, unspecified; Z88.1 Allergy status to other antibiotic agents; Z96.659 Presence of unspecified artificial knee joint; Z20.822 Contact with and (suspected) exposure to COVID-19
CPT/HCPCS: 36415; 70450; 71045; 72125; 74018; 74177; 80048; 80053; 80076; 80320; 83690; 83735; 83880; 84484; 85025; 85610; 87811; 93005; 96374; 96375; 97116; 97161; 97530; 99285; J1630; J1650; J2405; J2543; J3360; J3411; J7030; Q9967

== ENCOUNTER 2024-07-20 09:39 | Day surgery (SDC) | payer OTHER ==
[2024-07-20 10:35] LABS: Absolute Basophils 0.1 K/uL (0-0.5); Absolute Eosinophils 0.3 K/uL (0-0.5); Absolute Lymphocytes (CBC) 2.1 K/uL (0.7-4.9); Absolute Monocytes 0.6 K/uL (0.1-1.3); Absolute Neutrophil 8.5 K/uL (1.8-8.0); Basophils % 0.4 % (0-1.3); Eosinophils % 2.3 % (0-4.4); Hematocrit 33.9 % (39.6-49.0); Hemoglobin 11.1 g/dL (13.6-17.9); Lymphocytes % 18.2 % (15.3-44.8); MCH 25.4 pg (27.0-35.0); MCHC 32.9 g/dL (32.0-36.0); MCV 77.1 fL (80-100); MPV 6.3 fL (7.6-11.3); Monocytes % 5.4 % (3.3-12.3); Neutrophils % 73.7 % (41.7-73.7); Platelets 215 thou/uL (152-406); RBC Red Blood Cell Count 4.39 M/uL (4.33-5.43); Red Cell Distribution Width 17.3 % (12.1-15.2)
[2024-07-20 10:48] LABS: Anion Gap 4.2 mEq/L (5.0-15.0); Potassium 4.2 mEq/L (3.5-5.1)
--- NOTE | 2024-07-20 10:56 | RAD REPORT ---
Procedure: Chest Pa And Lat (2 Views) HISTORY: Preop COMPARISON: 2021 FINDINGS: Mild bilateral interstitial lung opacities probably chronic The lungs appear clear of acute infiltrate. No significant pleural effusion noted. The heart is mildly enlarged. IMPRESSION: No acute abnormality is displayed.
[2024-07-20] MEDS ORDERED: LIDOCAINE 2% MPF 5 ML VIAL ONE (11:14)
[2024-07-20] MEDS ORDERED: propofoL 200 MG/20 ML VIAL IV ONE (11:14)
[2024-07-20] MEDS ORDERED: FENTANYL CITR 100 MCG/2 ML ONE (11:14)
[2024-07-20] MEDS ORDERED: ONDANSETRON 4 MG/2 ML VIAL ONE (11:14)
--- NOTE | 2024-07-20 11:16 | EKG ---
Test Date: 2024-07-20 Test Time: 10:26:03 Cook Cold Meat: NEFTALY MEASUREMENT RESULTS: Intervals: Rate: 77 VT: 170 QRSD: 100 QT: 402 QTc: 454 [place]: P: 27 VT: 170 QRS: -13 T: 33 INTERPRETIVE STATEMENTS: Normal sinus rhythm Normal ECG Compared to ECG 03/20/2022 23:54:07 Sinus tachycardia no longer present Myocardial infarct finding no longer present Electronically Signed On 07-20-24 11:15:53 CDT by Jose R Sheridan
[2024-07-20] MEDS: Ringers Lactate 1,000 ML IV ONE (11:33)
[2024-07-20] MEDS ORDERED: BUPIVACAINE 0.5% PF 10 ML VIAL ONE (11:35)
[2024-07-20] MEDS ORDERED: dexAMETHasone 10 MG/ML VIAL ONE (12:28)
[2024-07-20] MEDS: CEFAZOLIN SODIUM 1 GM/VIAL ONE (12:30)
--- NOTE | 2024-07-20 13:01 | P.BOP ---
Preoperative diagnosis: perianal tenderness, ulcerated mass possible abscess Postoperative diagnosis: ulcerated thrombosed prolapsed hemorrhoid Primary procedure: Left posterior external hemorrhoidectomy Secondary procedure: EUA, Anoscopy, Rigid proctoscopy Estimated blood loss: <10cc Specimen: EUA, Anoscopy, Rigid proctoscopy Findings: ulcerated thrombosed hemorrhoid Anesthesia: General Complications: None Drain(s): Other (surgicell) Transferred to: Recovery Room Condition: Good
[2024-07-20 15:04] VITALS: BP 128/65; TEMP 97.2; O2SAT 97
== END 2024-07-20 14:46 | disposition home or self-care (01) ==
LOC: OR 09:39
PROVIDERS: ATTEND Surgery
PROC: 06BY0ZC Excision of Hemorrhoidal Plexus, Open Approach (ICD-10-PCS; 2024-07-20)
PROC: 0DJD8ZZ Inspection of Lower Intestinal Tract, Via Natural or Artificial Opening Endoscopic (ICD-10-PCS; principal; 2024-07-20 13:45)
DX: K64.5 Perianal venous thrombosis (principal); K64.8 Other hemorrhoids; K62.89 Other specified diseases of anus and rectum
CPT/HCPCS: 93005; 85025; 80048; 36415; 88304; 71046; 45300; 46999; J2704; J2003; J3010; J1100; J2405; J7120; J0690